=== PATIENT | male | born 1990 | race Caucasian/White ===

== ENCOUNTER 2022-10-17 09:42 | Inpatient (IN) | payer OTHER, SELFPAY ==
--- NOTE | ~2022-10-17 | US_ITS ---
EXAMINATION: ULTRASOUND ABDOMEN COMPLETE. ABDOMINAL DOPPLER AND COLOR ULTRASOUND. CLINICAL INFORMATION: Splenomegaly. Evaluate for splenic thrombosis. COMPARISON: None TECHNIQUE: Routine grayscale imaging of the abdomen was obtained. In addition Doppler imaging of abdomen with attention to portal, hepatic and splenic veins is performed. FINDINGS: ABDOMEN ULTRASOUND: Pancreas: The pancreas is homogeneous echotexture without enlargement. The tail of the pancreas is obscured by overlying gas. The pancreatic duct measures 0.2 cm. Liver, gallbladder and ducts: The liver is enlarged with diffuse increased echogenicity. No focal lesion seen. There is no intrahepatic or extrahepatic ductal dilatation. The left hepatic lobe measures 16.0 cm in length and right hepatic lobe measures 19.60 minutes CBD: CBD measures 0.5 cm. Gallbladder: There is no echogenic stones stones,, polyp or wall thickening. No pericholecystic fluid collection or tenderness in right upper quadrant. Right kidney: The right kidney measures 10.8 cm in length. There is normal cortical thickness. No echogenic stones or hydronephrosis seen. Left kidney: The left kidney measures 11.4 cm in length. There is normal cortical thickness without echogenic stones, hydronephrosis. No perinephric fluid collection seen. Spleen is borderline enlarged measuring 13.7 cm. There is a homogeneous in echotexture. There is no free fluid in the cul-de-sac. ULTRASOUND DOPPLER: The portal vein is patent with normal hepatopedal flow seen in the main, right and left portal veins. The splenic vein is patent without any thrombosis. The hepatic veins are patent especially the right, left and main hepatic veins are patent. US/US duplex arterial venous comp IMPRESSION: Mildly increased hepatic echogenicity without any focal lesion. Borderline splenomegaly.
--- NOTE | ~2022-10-17 | US_ITS ---
EXAMINATION: ULTRASOUND ABDOMEN COMPLETE. ABDOMINAL DOPPLER AND COLOR ULTRASOUND. CLINICAL INFORMATION: Splenomegaly. Evaluate for splenic thrombosis. COMPARISON: None TECHNIQUE: Routine grayscale imaging of the abdomen was obtained. In addition Doppler imaging of abdomen with attention to portal, hepatic and splenic veins is performed. FINDINGS: ABDOMEN ULTRASOUND: Pancreas: The pancreas is homogeneous echotexture without enlargement. The tail of the pancreas is obscured by overlying gas. The pancreatic duct measures 0.2 cm. Liver, gallbladder and ducts: The liver is enlarged with diffuse increased echogenicity. No focal lesion seen. There is no intrahepatic or extrahepatic ductal dilatation. The left hepatic lobe measures 16.0 cm in length and right hepatic lobe measures 19.60 minutes CBD: CBD measures 0.5 cm. Gallbladder: There is no echogenic stones stones,, polyp or wall thickening. No pericholecystic fluid collection or tenderness in right upper quadrant. Right kidney: The right kidney measures 10.8 cm in length. There is normal cortical thickness. No echogenic stones or hydronephrosis seen. Left kidney: The left kidney measures 11.4 cm in length. There is normal cortical thickness without echogenic stones, hydronephrosis. No perinephric fluid collection seen. Spleen is borderline enlarged measuring 13.7 cm. There is a homogeneous in echotexture. There is no free fluid in the cul-de-sac. ULTRASOUND DOPPLER: The portal vein is patent with normal hepatopedal flow seen in the main, right and left portal veins. The splenic vein is patent without any thrombosis. The hepatic veins are patent especially the right, left and main hepatic veins are patent. US/US abdomen complete IMPRESSION: Mildly increased hepatic echogenicity without any focal lesion. Borderline splenomegaly.
--- NOTE | ~2022-10-17 | CT_ITS ---
EXAMINATION: CT chest wo IV con. CLINICAL INFORMATION: Reason for Exam re-eval emphyema COMPARISON: Prior CT 10/24/2022 TECHNIQUE: Multidetector volumetric CT imaging of the chest was done. Axial MIP volume rendering provided. Sagittal and coronal reformatted images were obtained. This CT examination was performed using dose optimization techniques as appropriate, variously including the following: *Automated exposure control *Adjustment of mA and/or kV according to patient size (this includes techniques or standardized protocols for targeted exams where dose is matched to indication/reason for exam; i.e. extremities or head) *Use of iterative reconstruction technique CONTRAST: Noncontrasted study. DLP: 247 mGy-cm FINDINGS: [place] MAN: LINES/TUBES: Drainage catheter in the right lung base has been removed. LUNGS: Redemonstration of cavitary mass/abscess right lower lobe, air-fluid level, remain stable not significantly changed from 10/24/2022. Adjacent infiltrates/partial subsegmental atelectasis is stable. Pleural-based dense opacification right lower lobe laterally 3.5 cm, pleural-based dense consolidation right lower lobe medially 2.6 cm both remain without cavitation, there are stable. Left lung and right upper lobes are clear AIRWAYS: Trachea and bronchi are normal. MEDIASTINUM AND IZZY: No mediastinal, hilar or axillary lymphadenopathy. No mediastinal mass. VESSELS: HEART AND PERICARDIUM: Thoracic aorta is normal in size. Heart is normal in size. No pericardial effusion. There are no coronary calcifications. Pulmonary arteries are normal in size. LOWER NECK, AXILLA: The visualized thyroid gland is unremarkable. No axillary mass or adenopathy. VISUALIZED ABDOMEN: Spleen is enlarged 16.4 cm unchanged. CHEST WALL AND BONES: No chest wall mass. The visualized bony thorax is within normal limits. CT/CT chest wo IV con IMPRESSION: * Redemonstration of cavitary mass/abscess right lower lobe with air-fluid level, adjacent subsegmental atelectasis/infiltrate is stable. * Redemonstration of 2 other right lower lobe pleural-based noncavitary Pleural-based dense 4.2 and 2.5 cm consolidation right lower lobe laterally and medially both unchanged. * No lymphadenopathy. * Splenomegaly. * Drainage catheter has been removed.
--- NOTE | ~2022-10-17 | XR_ITS ---
EXAMINATION: XR CHEST CLINICAL INFORMATION: Cough, right hip pain. COMPARISON: None TECHNIQUE: 2 views of the chest were obtained. FINDINGS: There is an air-fluid level with haziness in right lower lobe posterior segment suggestive of a large liquefied consolidation or an abscess. Rest lungs are expanded and clear. Heart size and progress clarities normal. There is mild blunting of right CP angle from pleural thickening or effusion. No gross bony abnormality. XR/XR chest 2V IMPRESSION: Large right lower lobe posterior segment and fluid level suggestive of liquefied consolidation or abscess. Recommend CT chest with contrast.
--- NOTE | ~2022-10-17 | CT_ITS ---
EXAMINATION: CT CHEST WITHOUT CONTRAST CLINICAL INFORMATION: Lung abscess, status post drainage placement, follow-up. COMPARISON: Chest CT scan dated 10/17/2022. TECHNIQUE: Multidetector volumetric CT imaging of the chest was done. Axial MIP volume rendering provided. Sagittal and coronal reformatted images were obtained. This CT examination was performed using dose optimization techniques as appropriate, variously including the following: *Automated exposure control *Adjustment of mA and/or kV according to patient size (this includes techniques or standardized protocols for targeted exams where dose is matched to indication/reason for exam; i.e. extremities or head) *Use of iterative reconstruction technique DLP: 231 mGy-cm FINDINGS: LUNGS/PLEURA/AIRWAYS: Interval placement of right pigtail catheter in right lower lobe abscess still containing air and complex fluid. The collection has mildly decreased in size measuring approximately 9.9 TRV x 7.2 AP x 8.2 CC cm (previously 11.7 x 11.3 x 13.4 cm). A separate subpleural collection anterolateral to the larger collection measures 5.0 x 2.2 x 3.4 cm (image 42, series 3; image 60, series 8). The lungs are otherwise clear. Trace left pleural effusion. The airways are patent. MEDIASTINUM: The visualized thyroid gland is unremarkable. The thoracic aorta is unremarkable. No coronary artery calcifications. No pericardial effusion. UPPER ABDOMEN: Splenomegaly measuring up to 18.3 cm in AP dimension (image 60, series 3). MUSCULOSKELETAL: Unremarkable. SOFT TISSUES: Unremarkable. CT/CT chest wo IV con IMPRESSION: 1. Significant interval decrease in size of right lower lobe abscess as detailed above status post drainage catheter placement. 2. Splenomegaly represents interval increase from the previous study.
--- NOTE | ~2022-10-17 | CT_ITS ---
EXAMINATION: CT CHEST WITHOUT CONTRAST CLINICAL INFORMATION: Reevaluate right empyema. COMPARISON: Previous chest CT most recent 10/30/2021. TECHNIQUE: Multidetector volumetric CT imaging of the chest was done. Axial MIP volume rendering provided. Sagittal and coronal reformatted images were obtained. This CT examination was performed using dose optimization techniques as appropriate, variously including the following: *Automated exposure control *Adjustment of mA and/or kV according to patient size (this includes techniques or standardized protocols for targeted exams where dose is matched to indication/reason for exam; i.e. extremities or head) *Use of iterative reconstruction technique DLP: 144 mGy-cm FINDINGS: LUNGS: There is bronchial wall thickening of the right lower lobe. There is a large peripheral or subpleural thick-walled cavitary lesion seen in the right lower lobe which abuts the right pleural surface. It is difficult to completely exclude small right hydropneumothorax or a bronchopleural fistula. This is slightly decreased in size from October 2022. This measures approximately 3.5 x 5 cm in AP and transverse dimensions. There are adjacent air bronchograms. There are adjacent nodular peripheral or subpleural right lower lobe lesions laterally measuring 1.3 cm, slightly decreased in size from previous exam and medially measuring 2 cm not appreciably changed in size from prior exam. MEDIASTINUM: Shotty mediastinal lymphadenopathy similar to previous exam. CORONARY ARTERY CALCIFICATION: None visualized on this study. PLEURA: There is a small right pleural effusion and pleural thickening. Air space or cavity in the adjacent posterior right lower lobe as described above. There is no left pleural effusion. There is no pneumothorax. AXILLA: No lymphadenopathy. UPPER ABDOMEN: The spleen is enlarged. OSSEOUS STRUCTURES: Unremarkable. CT/CT chest wo IV con IMPRESSION: Small right pleural effusion and pleural thickening. Interval decrease in size and cavitary right lower lobe lung lesion. This abuts the pleural surface and possibility of bronchopleural fistula or small hydropneumothorax cannot be excluded. Interval decrease in peripheral or subpleural nodular opacity in the right lower lobe, adjacent pleural thickening and stable similar-appearing posterior medial right lower lobe peripheral or subpleural opacity. Fleischner guidelines were followed.
--- NOTE | ~2022-10-17 | XR_ITS ---
EXAMINATION: XR chest 1V CLINICAL INFORMATION: Reason for Exam Right lung abscess with drainage catheter COMPARISON: Chest radiograph 10/20/2022 TECHNIQUE: One view of the chest FINDINGS: Right basilar pigtail pleural drainage catheter. There is patchy right basilar consolidation which appears slightly improved from prior with no definite residual air-fluid levels seen within the region of consolidation. Possible trace right pleural effusion similar to prior. No pneumothorax. Normal cardiomediastinal silhouette. XR/XR chest 1V IMPRESSION: * Right basilar pigtail pleural drainage catheter. There is patchy right basilar consolidation which appears slightly improved from prior with no definite residual air-fluid levels seen within the region of consolidation. * Possible trace right pleural effusion similar to prior.
--- NOTE | ~2022-10-17 | XR_ITS ---
EXAMINATION: XR CHEST CLINICAL INFORMATION: Assess loculated right pleural effusion COMPARISON: Chest radiograph 10/22/[address] thorax 10/24/2022 TECHNIQUE: Frontal view of the chest was obtained. FINDINGS: Right pigtail catheter extends to the medial lung base without change. The right inferolateral pleural based opacity and the posterior right lower lung pleural based opacity are similar in size and appearance compared to prior. A small locule of pleural air is seen in the more posterior opacity measuring 1.7 x 2.9 cm in size. The right upper lung and left lung are clear. The heart and mediastinum are normal in appearance. No acute osseous findings. XR/XR chest 1V IMPRESSION: 1. Similar appearance to the pleural-based opacities at the right lung base. 2. Stable position to the right pigtail pleural drain.
--- NOTE | ~2022-10-17 | CT_ITS ---
EXAMINATION: CT CHEST WITH CONTRAST CLINICAL INFORMATION: Question of lung abscess on chest radiograph COMPARISON: Chest radiograph earlier today TECHNIQUE: Multidetector volumetric CT imaging of the chest was obtained after the administration of 65 mL of Omnipaque 350 intravenous contrast without immediate adverse reactions. Axial MIP volume rendering provided. Sagittal and coronal reformatted images were obtained. This CT examination was performed using dose optimization techniques as appropriate, variously including the following: *Automated exposure control *Adjustment of mA and/or kV according to patient size (this includes techniques or standardized protocols for targeted exams where dose is matched to indication/reason for exam; i.e. extremities or head) *Use of iterative reconstruction technique DLP: 220 mGy-cm FINDINGS: LUNGS AND PLEURA: At the right lung base in the right lower lobe, there is a large complex collection with fluid and air measuring 14.2 x 9.9 10.0 cm consistent with a large lung abscess. There are 2 adjacent loculated pleural collections measuring 1.7 x 3.6 x 3.1 cm just lateral to the abscess (4:315, 6:88) as well as a collection medially abutting the mediastinum measuring 6.5 x 1.6 x 4.1 cm (4:356, 5:55). There is a small amount of loculated fluid present in the major fissure. Incidental note made of a tiny 2 mm nodule in the inferior right upper lobe adjacent to the minor fissure (4:220). Left lung appears normal. MEDIASTINUM: The mediastinum is normal. PLEURA: There is no pleural effusion. No pleural mass or thickening. AXILLA: No lymphadenopathy. UPPER ABDOMEN: The spleen is enlarged measuring at least 17 cm in greatest length. Hepatomegaly may be present as well the entire liver is not included on this chest CT. OSSEOUS STRUCTURES: Unremarkable. CT/CT chest w IV con IMPRESSION: 1. Large right lower lobe lung abscess with 2 adjacent loculated pleural collections as described above. 2. Incidental note made of splenomegaly and possible hepatomegaly. Fleischner guidelines were followed.
--- NOTE | ~2022-10-17 | CT_ITS ---
EXAMINATION: CT GUIDED RIGHT LOWER LOBE ABSCESS DRAINAGE AND CATHETER PLACEMENT CLINICAL INFORMATION: Right lower lobe abscess. COMPARISON: None TECHNIQUE: Following explaining CT guided drainage and placement of right lower lobe abscess procedure, benefits and risk, a written consent was obtained. Patient was placed in the left semi decubitus view and preliminary CT imaging was obtained. An optimal site was selected and marked. The marked site was cleaned and draped in usual sterile manner. 1% lidocaine was injected at puncture site. Through a small skin incision a 5 [place] Yueh catheter was advanced into the right lower lobe abscess under fluoroscopy guidance. After observing possible return and removal of stylet a 0.035 J-wire was advanced and the catheter was removed. A 10.2 [place] APD catheter was then placed into the abscess and the guidewire removed. The catheter was stabilized to the skin with 3 0 nonabsorbable sutures. The catheter was then connected to suction bulb. Initially, simple aspiration was performed with syringe and wall suction. The abscess was flushed with about 20 mL of saline and aspirated. Approximately 50 mL of pus was withdrawn. Some of this was sent to lab. Patient tolerated procedure extremely well. Conscious sedation was utilized during the exam and patient monitored for [address] examination was performed using dose optimization techniques as appropriate, variously including the following: *Automated exposure control *Adjustment of mA and/or kV according to patient size (this includes techniques or standardized protocols for targeted exams where dose is matched to indication/reason for exam; i.e. extremities or head) *Use of iterative reconstruction technique DLP: 391 mGy-cm FINDINGS: On preliminary CT imaging there is a large abscess right lower lobe. Initial pus collected was sent to lab for culture and sensitivity and TV evaluation. A 10.2 [place] APD catheter was left in the right lower lobe abscess. The abscess is very thick and may need a larger bore catheter or surgical drainage. CT/CT drain thoracentesis IMPRESSION: Successful CT fluoroscopy-guided partial drainage and insertion of 10.2 [place] APD catheter. The tip of the catheter lies within the abscess.
--- NOTE | ~2022-10-17 | XR_ITS ---
EXAMINATION: XR CHEST CLINICAL INFORMATION: Right lower lobe abscess. COMPARISON: Chest 10/17/2022 TECHNIQUE: 2 views of the chest were obtained. FINDINGS: Previously seen air-fluid level right lower lobe shows mild improvement. There is percutaneously placed right lower lobe chest catheter within the abscess. Of the margins of the ILL-defined however the size grossly is minimally smaller. No gross bony pneumonitis seen Heart size and pulmonary vascularity is normal. XR/XR chest 2V IMPRESSION: Mild improvement in the right lower lobe air-fluid level consistent with abscess. There is a percutaneously placed right lower lobe chest catheter within the abscess. Recommend flushing catheter with 20 mL of saline every 8 hours.
[2022-10-17 09:45] VITALS: BP 119/76; PULSE 106; RESP 20; TEMP 37.4; O2SAT 98; BMI 20.9
--- NOTE | 2022-10-17 09:54 | ED.GENADULT ---
HPI - General Adult General Chief complaint: General Medical <JOSE Goode - Last Filed: 10/17/22 15:35> Stated complaint: R flank pain <JOSE Goode Last Filed: 10/17/22 15:35> Time Seen by Provider: 10/17/22 09:54 <JOSE Goode Last Filed: 10/17/22 15:35> Source: patient <JOSE Goode Last Filed: 10/17/22 15:35> Mode of arrival: ambulatory <JOSE Goode Last Filed: 10/17/22 15:35> Limitations: no limitations <JOSE Goode Last Filed: 10/17/22 15:35> History of Present Illness HPI narrative: Patient is a 32 year old assigned male at with a history of IV drug use and smoking presenting to the emergency department today with right sided flank / rib pain. Patient states that over the last 2 weeks he has had right flank pain that is worse with deep breathing. Patient states that he has also had intermittent fevers and a cough. Patient states that he does not know any of any history of HIV but he does use IV drugs. Patient denies any dizziness, lightheadedness, abdominal pain, nausea, vomiting, blurry vision, double vision, loss of vision, chest pain, night sweats, pain with urination, increased urinary frequency, increased urinary urgency, blood in [his/her/their] urine or stool, syncope or a near syncopal episode, recent trauma or falls, bowel incontinence, bladder incontinence, bowel retention, bladder retention, or any other complaints at this time. <JOSE Goode Last Filed: 10/17/22 15:35> Onset (ago): week(s) (2) <JOSE Goode - Last Filed: 10/17/22 15:35> Location: right (flank) <JOSE Goode Last Filed: 10/17/22 15:35> Severity: mild <JOSE Goode Last Filed: 10/17/22 15:35> Severity scale (1-10): 4 <JOSE Goode Last Filed: 10/17/22 15:35> Relieving factors: none <JOSE Goode Last Filed: 10/17/22 15:35> Exacerbating factors: none <JOSE Goode - Last Filed: 10/17/22 15:35> Associated symptoms: fever/chills <JOSE Goode - Last Filed: 10/17/22 15:35> Treatments prior to arrival: none <JOSE Goode Last Filed: 10/17/22 15:35> Related Data Home medications: Home Medications Medication Instructions Recorded Confirmed albuterol sulfate 90 mcg/actuation 1 inh inhalation QID PRN Wheezing 10/17/22 10/17/22 aerosol inhaler methadone 10 mg/5 mL oral solution 125 mg PO DAILY 10/17/22 10/17/22 <JOSE Goode - Last Filed: 10/17/22 15:35> Allergies/adverse reactions: Allergies Allergy/AdvReac Type Severity Reaction Status Date / Time codeine Allergy Hives Verified 10/17/22 09:45 <JOSE Goode - Last Filed: 10/17/22 15:35> Review of Systems Constitutional: Constitutional: Reports no additional constitutional complaints, Denies chills, Reports fever(s) and Denies night sweats <JOSE Goode - Last Filed: 10/17/22 15:35> Eyes: Eyes: Reports no additional eye complaints, Denies blurry vision, Denies change in vision, Denies diplopia, Denies eye discharge, Denies loss of vision and Denies eye pain <JOSE Goode - Last Filed: 10/17/22 15:35> ENT: Denies dizziness <JOSE Goode - Last Filed: 10/17/22 15:35> Cardiovascular: Cardiovascular: Reports no additional cardiovascular complaints, Denies chest pain, Denies lightheadedness, Denies Loss of Consciousness and Denies dyspnea <JOSE Goode - Last Filed: 10/17/22 15:35> Respiratory: Respiratory: Reports no additional respiratory complaints and Denies dyspnea <JOSE Goode - Last Filed: 10/17/22 15:35> Gastrointestinal: Gastrointestinal: Reports no additional gastrointestinal complaints, Denies abdominal pain, Denies melena, Denies hematochezia, Denies change in bowel habits and Denies change in stool character <JOSE Goode - Last Filed: 10/17/22 15:35> Genitourinary: Genitourinary: Reports no additional male genitourinary complaints, Denies hematuria, Denies oliguria, Denies difficulty urinating, Denies dysuria, Reports flank pain (right), Denies urinary frequency, Denies urinary hesitancy, Denies urinary incontinence and Denies urinary urgency <JOSE Goode - Last Filed: 10/17/22 15:35> Musculoskeletal: Musculoskeletal: Reports no additional musculoskeletal complaints, Denies numbness and Denies tingling <JOSE Goode - Last Filed: 10/17/22 15:35> Neurologic: Denies dizziness, Denies loss of vision, Denies numbness and Denies tingling <JOSE Goode - Last Filed: 10/17/22 15:35> Psychiatric: Psychiatric: Reports no additional psychiatric complaints <JOSE Goode - Last Filed: 10/17/22 15:35> Endocrine: Endocrine: Reports no additional endocrine complaints <JOSE Goode - Last Filed: 10/17/22 15:35> Hematologic/Lymphatic: Hematologic/Lymphatic: Reports no additional hematologic/lymphatic complaints <JOSE Goode - Last Filed: 10/17/22 15:35> Allergic/Immunologic: Allergic/Immunologic: Reports no additional allergic/immunologic complaints <JOSE Goode - Last Filed: 10/17/22 15:35> PMFSH Past Medical History Attestation statement: The following information was validated with the patient. <JOSE Goode - Last Filed: 10/17/22 15:35> Source: old records reviewed and nursing notes reviewed <JOSE Goode - Last Filed: 10/17/22 15:35> Medical History: Medical History (Updated 10/17/22 @ 15:11 by JOSE Goode) Agoraphobia Anxiety Asthma Hepatitis C antibody test positive History of intravenous drug abuse Opioid use disorder <JOSE Goode - Last Filed: 10/17/22 15:35> Family History Family History: Family History (Updated 10/17/22 @ 14:49 by JOSE Adorno) Father Lung cancer <JOSE Goode - Last Filed: 10/17/22 15:35> Social History Social History: Social History (Updated 10/17/22 @ 14:49 by JOSE Adorno) Alcohol intake: never Patient Tobacco Use Status: Current everyday Tobacco user Tobacco use type: Cigarette Cigarette Packs Per Day: 0.25 Smoked in Last 30 Days: Yes Use of substances other than those prescribed or required for medical reasons: Yes Substance Use Type: Marijuana Substance Use Frequency: Occasionally Any prior treatment program specific to substance use: Yes Advance Directives: No Advance Directives Information Provided: Yes Nutrition Risks: No Nutritional Risk <JOSE Goode - Last Filed: 10/17/22 15:35> Physical Exam ED Vital Signs: Vital Signs - 24 hr 10/17/22 09:45 10/17/22 14:29 Temperature 99.4 F Pulse Rate 106 H 73 Respiratory Rate 20 Blood Pressure 119/76 Pulse Oximetry 98 Oxygen Delivery Method Room Air BMI result Body Mass Index 20.9 <JOSE Goode - Last Filed: 10/17/22 15:35> Vital Signs - 24 hr 10/17/22 09:45 10/17/22 14:29 Temperature 99.4 F Pulse Rate 106 H 73 Respiratory Rate 20 Blood Pressure 119/76 Pulse Oximetry 98 Oxygen Delivery Method Room Air BMI result Body Mass Index 20.9 <Anibal Cantrell MD - Last Filed: 10/17/22 14:21> Const General: cooperative, no acute distress, alert and awake <JOSE Goode - Last Filed: 10/17/22 15:35> Nutritional Appearance: well nourished <JOSE Goode - Last Filed: 10/17/22 15:35> Orientation/consciousness: patient oriented x3 <JOSE Goode - Last Filed: 10/17/22 15:35> Limitations: no limitations <JOSE Goode - Last Filed: 10/17/22 15:35> HENMT Head: Yes normal to inspection and Yes atraumatic <JOSE Goode - Last Filed: 10/17/22 15:35> Ears: hearing grossly normal bilaterally and external ears normal <JOSE Goode - Last Filed: 10/17/22 15:35> General nose exam: Normal external nose present, no nasal discharge noted and no epistaxis <Nancy Noel [place] - Last Filed: 10/17/22 15:35> Face and sinus: Yes normal facial exam, No abrasion and No laceration <Nancy Noel [place] - Last Filed: 10/17/22 15:35> Mouth: Normal oral and palatal mucosa present, no drooling and no muffled voice <Nancy Noel [place] - Last Filed: 10/17/22 15:35> Eyes General: appearance normal, both eyes and all related structures <Nancy Noel [place] - Last Filed: 10/17/22 15:35> Periorbital: periorbital findings normal <Nancy Noel [place] - Last Filed: 10/17/22 15:35> Eyelids: Yes eyelids normal <Nancy Noel [place] - Last Filed: 10/17/22 15:35> Conjunctivae: conjunctivae normal <Nancy Noel [place] - Last Filed: 10/17/22 15:35> Pupils: Equal, round and reactive pupils present <Nancy Noel [place] - Last Filed: 10/17/22 15:35> EOM: EOMs intact bilaterally <Nancy Noel [place] - Last Filed: 10/17/22 15:35> Neck Neck: Yes normal visual inspection, Yes full ROM and Yes no lymphadenopathy <Nancy Noel [place] - Last Filed: 10/17/22 15:35> Chest Chest palpation & inspection: normal inspection of the chest <Nancy Noel [place] - Last Filed: 10/17/22 15:35> Resp Effort & Inspection: normal respiratory effort and able to speak in complete sentences <Nancy Noel [place] - Last Filed: 10/17/22 15:35> Auscultation: clear to auscultation bilaterally <Nancy Noel [place] - Last Filed: 10/17/22 15:35> Cardio Rate: tachycardic <Nancy Noel [place] - Last Filed: 10/17/22 15:35> Rhythm: regular rhythm <Nancy Noel [place] - Last Filed: 10/17/22 15:35> GI Inspection: Yes normal to inspection <Nancy Noel [place] - Last Filed: 10/17/22 15:35> Palpation (GI): Soft to palpation, not firm, nontender, no guarding and not rigid <Nancyankur CabreraJOSE presley - Last Filed: 10/17/22 15:35> Neuro General: patient oriented x3 and moves all extremities <Nancy CabreraJOSE presley - Last Filed: 10/17/22 15:35> Cranial nerves: Yes Equal, round and reactive pupils present <Nancy NoelJOSE presley - Last Filed: 10/17/22 15:35> Cognition (Neuro): normal cognition <JOSE Goode - Last Filed: 10/17/22 15:35> Motor exam (neuro): 5/5 motor strength present throughout <JOSE Goode - Last Filed: 10/17/22 15:35> Sensory Exam: Normal double simultaneous stimulation for sensation <JOSE Goode - Last Filed: 10/17/22 15:35> Coordination: [id number] test normal <JOSE Goode - Last Filed: 10/17/22 15:35> Extrem General: Yes normal to inspection, Yes full ROM and Yes capillary refill normal <Nancy Noel, PA - Last Filed: 10/17/22 15:35> Psych Appearance: grossly normal <JOSE Goode - Last Filed: 10/17/22 15:35> Mental Status: mental status grossly normal <JOSE Goode - Last Filed: 10/17/22 15:35> Affect: normal affect <JOSE Goode - Last Filed: 10/17/22 15:35> Attitude: cooperative <JOSE Goode - Last Filed: 10/17/22 15:35> Thought process: Normal thought process present <JOSE Goode - Last Filed: 10/17/22 15:35> Thought content: Normal thought content present <JOSE Goode - Last Filed: 10/17/22 15:35> Insight: Good insight present (Psych) <JOSE Goode - Last Filed: 10/17/22 15:35> Course Reevaluation(s) Reevaluation #1: Patinet with large thoracic abscess, discussed plan with Bert CARVER <Anibal Cantrell MD - Last Filed: 10/17/22 14:21> Time: 10:33 <Anibal Cantrell MD - Last Filed: 10/17/22 14:21> Medications Administered Discontinued Medications Generic Name Dose Route Start Last Admin Trade Name Freq PRN Reason Stop Dose Admin Piperacillin Sod/Tazobactam 50 mls @ 100 mls/hr 10/17/22 10:33 10/17/22 11:38 Sod 3.375 gm/ Sodium Chloride IV 10/17/22 11:02 Infused ONCE ONE Infusion Vancomycin HCl 1,500 mg/ 500 mls @ 333.333 mls/hr 10/17/22 11:00 10/17/22 13:05 Sodium Chloride IV 10/17/22 12:29 Infused ONCE ONE Infusion Sodium Chloride 2,041.17 mls @ 2,041.17 mls/hr 10/17/22 12:12 10/17/22 13:18 Ns 30 ml/kg infuse over 1 hr (2041.17 ml) 10/17/22 13:11 Infused IV Infusion .Q1H STA Ibuprofen 800 mg 10/17/22 09:55 10/17/22 10:27 Ibuprofen 800 Mg Tablet PO 10/17/22 09:56 800 mg ONCE ONE Administration Iohexol 65 ml 10/17/22 12:26 10/17/22 12:27 Iohexol 350 Mg/Ml 100 Ml Infus..Btl IV 10/17/22 12:27 65 ml ONCE ONE Administration Lorazepam 2 mg 10/17/22 10:45 10/17/22 11:00 Lorazepam 2 Mg/Ml Vial IVPUSH 10/17/22 10:46 2 mg ONCE ONE Administration <JOSE Goode - Last Filed: 10/17/22 15:35> Medications Administered Discontinued Medications Generic Name Dose Route Start Last Admin Trade Name Freq PRN Reason Stop Dose Admin Piperacillin Sod/Tazobactam 50 mls @ 100 mls/hr 10/17/22 10:33 10/17/22 11:38 Sod 3.375 gm/ Sodium Chloride IV 10/17/22 11:02 Infused ONCE ONE Infusion Vancomycin HCl 1,500 mg/ 500 mls @ 333.333 mls/hr 10/17/22 11:00 10/17/22 13:05 Sodium Chloride IV 10/17/22 12:29 Infused ONCE ONE Infusion Sodium Chloride 2,041.17 mls @ 2,041.17 mls/hr 10/17/22 12:12 10/17/22 13:18 Ns 30 ml/kg infuse over 1 hr (2041.17 ml) 10/17/22 13:11 Infused IV Infusion .Q1H STA Ibuprofen 800 mg 10/17/22 09:55 10/17/22 10:27 Ibuprofen 800 Mg Tablet PO 10/17/22 09:56 800 mg ONCE ONE Administration Iohexol 65 ml 10/17/22 12:26 10/17/22 12:27 Iohexol 350 Mg/Ml 100 Ml Infus..Btl IV 10/17/22 12:27 65 ml ONCE ONE Administration Lorazepam 2 mg 10/17/22 10:45 10/17/22 11:00 Lorazepam 2 Mg/Ml Vial IVPUSH 10/17/22 10:46 2 mg ONCE ONE Administration <Anibal Cantrell MD - Last Filed: 10/17/22 14:21> Medical Decision Making Medical Decision Making MDM Narrative: Patient is a 32 year old assigned male at with a history of IV drug use currently on methadone and a cigarette smoker presenting to the emergency department today with right sided flank pain and a cough. Patient's physical exam showed initial tachycardia which was largely due to the patient's anxiousness surrounding his being at the hospital and improved with 2mg of Ativan. Patient's blood work showed an elevated WBC count of 16.4, a decreased hgb of 9.3, an elevated ESR of 98, a decreased sodium of 134, an elevated lactic acid of 2.1, and an elevated CRP of 19.93. Additionally, patient was positive for Hepatitis C. Patient's urine showed no acute process. Patient's chest x-ray showed a large right lower lobe posterior segment and fluid level suggestive of liquefied consolidation or abscess. Patient's chest CT with IV contrast showed a large right lower lobe lung abscess with 2 adjacent loculated pleural collections. I spoke to the oarcic team who recommended medical admission with IR, pulmonary, and ID consultation. Patient was given IV fluids, IV Vanc + Zosyn. Patient's clinical presentation is not consistent with sepsis (@1041). I spoke to the hospitalist team who agreed to admission. I explained my physical exam findings as well as all test results to the patient. I answered all questions asked by the patient. Patient verbalized agreement and understanding with this treatment plan and admission. <JOSE Goode - Last Filed: 10/17/22 15:35> Differential Diagnosis Differential Diagnoses: The differential diagnosis associated with the presentation includes <JOSE Goode - Last Filed: 10/17/22 15:35> thoracic abscess, fluid collection in throacic cavity <JOSE Goode - Last Filed: 10/17/22 15:35> Consult Healthcare Provider Management of the patient was discussed with: Hospitalist (agreed to admission) and [employer] (spoke to throacic surgery who recommended medical admission with ID, pulm, and IR consults.) <JOSE Goode - Last Filed: 10/17/22 15:35> Discussed care with dr. chew hospitalist and Dr. Ramos invasive radiology <Anibal Cantrell MD - Last Filed: 10/17/22 14:21> Lab Data MDM Lab Attestation statement: I reviewed the patient's lab results. <JOSE Goode - Last Filed: 10/17/22 15:35> Result Diagrams: 10/17/22 10:41 10/17/22 10:41 <JOSE Goode - Last Filed: 10/17/22 15:35> Labs: Lab Results 10/17/22 10/17/22 10/17/22 Range/Units 10:09 10:09 10:09 WBC (4.8-10.8) X10*3/uL RBC (4.60-5.80) X10*6/uL Hgb (14.0-18.0) g/dl Hct (42.0-52.0) % MCV (80.0-98.0) fL MCH (27.0-33.0) pg MCHC (31.0-36.0) g/dl RDW (11.0-16.0) % Plt Count (160-400) X10*3/uL MPV (9.4-12.4) fL Immature Gran % (Auto) (0.0-0.4) % Neut % (Auto) (45-73) % Lymph % (Auto) (20-40) % [place] % (Auto) (2-11) % Eos % (Auto) (0-4) % Baso % (Auto) (0-2) % Lymph # (Auto) (1.2-4.9) X10*3/uL [place] # (Auto) (0.1-1.2) X10*3/uL Eos # (Auto) (0.0-0.4) X10*3/uL Baso # (Auto) (0.0-0.2) X10*3/uL Abs Immat Gran (auto) (0.00-0.03) X10*3/uL Absolute Neuts (auto) (2.0-8.3) x10*3/uL Absolute Nucleated RBC (0.0-0.012) X10*3/uL Nucleated RBC % (auto) (0.0-0.2) /100WBC ESR (0-15) MM/HR Sodium (135-145) mmol/L Potassium (3.3-5.1) mmol/L Chloride (96-108) mmol/L Carbon Dioxide (22-29) mmol/L Anion Gap (12-20) BUN (9-16) mg/dL Creatinine (0.5-1.4) mg/dL Estim Creat Clear Calc Estimated GFR Random Glucose (60-115) mg/dL Lactic Acid (0.5-2.0) mmol/L Calcium (8.4-10.2) mg/dL Magnesium (1.6-2.6) mg/dL Total Bilirubin (0.0-1.0) mg/dL AST (5-37) U/L ALT (0-40) U/L Alkaline Phosphatase (39-117) U/L C-Reactive Protein (< or = 0.50) mg/dL Total Protein (6.5-8.0) g/dL Albumin (3.5-5.0) g/dL Urine Color Dark Yellow Urine Appearance Cloudy Urine pH 5.5 (5.0-9.0) Ur Specific [place] 1.025 (1.005-1.025) Urine Protein Trace (Neg-Trace) mg/dL Urine Glucose (UA) Negative (Negative) mg/dL Urine Ketones Trace (Negative) mg/dL Urine Blood Negative (Negative) Urine Nitrite Negative (Negative) Ur Leukocyte Esterase Trace H (Negative) Urine RBC 0-2 (0-2) /HPF Urine WBC 0-5 (0-5) /HPF Ur Squamous Epith Cells 0-2 (0-2) /HPF Urine Bacteria None Seen (None Seen) Hyaline Casts 0-2 (0-2) /LPF Urine Opiates Screen POSITIVE H (Not Detect) Urine Fentanyl Screen POSITIVE H (Not Detect) Ur Barbiturates Screen Not Detected (Not Detect) Ur Phencyclidine Scrn Not Detected (Not Detect) Ur Amphetamines Screen Not Detected (Not Detect) U Benzodiazepines Scrn Not Detected (Not Detect) Urine Cocaine Screen POSITIVE H (Not Detect) U Marijuana (THC) Screen Not Detected (Not Detect) Hep Bs Antigen (Negative) Hep Bs Antibody (Nonreactive) Hep B Core Total Ab (Nonreactive) Hepatitis C Ab (EIA) (Nonreactive) HIV 1&2 Ab/P24 Ag 4thGn (Nonreactive) Influenza Type A (PCR) NEGATIVE (Negative) Influenza Type B (PCR) NEGATIVE (Negative) RSV RNA Qual (PCR) NEGATIVE (Negative) SARS-CoV-2 RNA (RT-PCR) NEGATIVE (Negative) 10/17/22 10/17/22 10/17/22 Range/Units 10:41 10:41 10:41 WBC 16.4 H (4.8-10.8) X10*3/uL RBC 3.52 L (4.60-5.80) X10*6/uL Hgb 9.3 L (14.0-18.0) g/dl Hct 28.2 L (42.0-52.0) % MCV 80.1 (80.0-98.0) fL MCH 26.4 L (27.0-33.0) pg MCHC 33.0 (31.0-36.0) g/dl RDW 14.4 (11.0-16.0) % Plt Count 496 H (160-400) X10*3/uL MPV 8.5 L (9.4-12.4) fL Immature Gran % (Auto) 1.0 H (0.0-0.4) % Neut % (Auto) 88.8 H (45-73) % Lymph % (Auto) 6.1 L (20-40) % [place] % (Auto) 3.8 (2-11) % Eos % (Auto) 0.1 (0-4) % Baso % (Auto) 0.2 (0-2) % Lymph # (Auto) 1.0 L (1.2-4.9) X10*3/uL [place] # (Auto) 0.6 (0.1-1.2) X10*3/uL Eos # (Auto) 0.0 (0.0-0.4) X10*3/uL Baso # (Auto) 0.0 (0.0-0.2) X10*3/uL Abs Immat Gran (auto) 0.16 H (0.00-0.03) X10*3/uL Absolute Neuts (auto) 14.6 H (2.0-8.3) x10*3/uL Absolute Nucleated RBC 0.000 (0.0-0.012) X10*3/uL Nucleated RBC % (auto) 0.0 (0.0-0.2) /100WBC ESR (0-15) MM/HR Sodium 134 L (135-145) mmol/L Potassium 4.0 (3.3-5.1) mmol/L Chloride 98 (96-108) mmol/L Carbon Dioxide 25 (22-29) mmol/L Anion Gap 15 (12-20) BUN 12 (9-16) mg/dL Creatinine 0.77 (0.5-1.4) mg/dL Estim Creat Clear Calc 132.5 Estimated GFR > 60 Random Glucose 203 H (60-115) mg/dL Lactic Acid 2.1 H* (0.5-2.0) mmol/L Calcium 8.2 L (8.4-10.2) mg/dL Magnesium 1.9 (1.6-2.6) mg/dL Total Bilirubin 0.7 (0.0-1.0) mg/dL AST 29 (5-37) U/L ALT 17 (0-40) U/L Alkaline Phosphatase 155 H (39-117) U/L C-Reactive Protein 19.93 H (< or = 0.50) mg/dL Total Protein 5.6 L (6.5-8.0) g/dL Albumin 2.4 L (3.5-5.0) g/dL Urine Color Urine Appearance Urine pH (5.0-9.0) Ur Specific [place] (1.005-1.025) Urine Protein (Neg-Trace) mg/dL Urine Glucose (UA) (Negative) mg/dL Urine Ketones (Negative) mg/dL Urine Blood (Negative) Urine Nitrite (Negative) Ur Leukocyte Esterase (Negative) Urine RBC (0-2) /HPF Urine WBC (0-5) /HPF Ur Squamous Epith Cells (0-2) /HPF Urine Bacteria (None Seen) Hyaline Casts (0-2) /LPF Urine Opiates Screen (Not Detect) Urine Fentanyl Screen (Not Detect) Ur Barbiturates Screen (Not Detect) Ur Phencyclidine Scrn (Not Detect) Ur Amphetamines Screen (Not Detect) U Benzodiazepines Scrn (Not Detect) Urine Cocaine Screen (Not Detect) U Marijuana (THC) Screen (Not Detect) Hep Bs Antigen (Negative) Hep Bs Antibody (Nonreactive) Hep B Core Total Ab (Nonreactive) Hepatitis C Ab (EIA) (Nonreactive) HIV 1&2 Ab/P24 Ag 4thGn (Nonreactive) Influenza Type A (PCR) (Negative) Influenza Type B (PCR) (Negative) RSV RNA Qual (PCR) (Negative) SARS-CoV-2 RNA (RT-PCR) (Negative) 10/17/22 10/17/22 Range/Units 10:41 10:41 WBC (4.8-10.8) X10*3/uL RBC (4.60-5.80) X10*6/uL Hgb (14.0-18.0) g/dl Hct (42.0-52.0) % MCV (80.0-98.0) fL MCH (27.0-33.0) pg MCHC (31.0-36.0) g/dl RDW (11.0-16.0) % Plt Count (160-400) X10*3/uL MPV (9.4-12.4) fL Immature Gran % (Auto) (0.0-0.4) % Neut % (Auto) (45-73) % Lymph % (Auto) (20-40) % [place] % (Auto) (2-11) % Eos % (Auto) (0-4) % Baso % (Auto) (0-2) % Lymph # (Auto) (1.2-4.9) X10*3/uL [place] # (Auto) (0.1-1.2) X10*3/uL Eos # (Auto) (0.0-0.4) X10*3/uL Baso # (Auto) (0.0-0.2) X10*3/uL Abs Immat Gran (auto) (0.00-0.03) X10*3/uL Absolute Neuts (auto) (2.0-8.3) x10*3/uL Absolute Nucleated RBC (0.0-0.012) X10*3/uL Nucleated RBC % (auto) (0.0-0.2) /100WBC ESR 98 H (0-15) MM/HR Sodium (135-145) mmol/L Potassium (3.3-5.1) mmol/L Chloride (96-108) mmol/L Carbon Dioxide (22-29) mmol/L Anion Gap (12-20) BUN (9-16) mg/dL Creatinine (0.5-1.4) mg/dL Estim Creat Clear Calc Estimated GFR Random Glucose (60-115) mg/dL Lactic Acid (0.5-2.0) mmol/L Calcium (8.4-10.2) mg/dL Magnesium (1.6-2.6) mg/dL Total Bilirubin (0.0-1.0) mg/dL AST (5-37) U/L ALT (0-40) U/L Alkaline Phosphatase (39-117) U/L C-Reactive Protein (< or = 0.50) mg/dL Total Protein (6.5-8.0) g/dL Albumin (3.5-5.0) g/dL Urine Color Urine Appearance Urine pH (5.0-9.0) Ur Specific [place] (1.005-1.025) Urine Protein (Neg-Trace) mg/dL Urine Glucose (UA) (Negative) mg/dL Urine Ketones (Negative) mg/dL Urine Blood (Negative) Urine Nitrite (Negative) Ur Leukocyte Esterase (Negative) Urine RBC (0-2) /HPF Urine WBC (0-5) /HPF Ur Squamous Epith Cells (0-2) /HPF Urine Bacteria (None Seen) Hyaline Casts (0-2) /LPF Urine Opiates Screen (Not Detect) Urine Fentanyl Screen (Not Detect) Ur Barbiturates Screen (Not Detect) Ur Phencyclidine Scrn (Not Detect) Ur Amphetamines Screen (Not Detect) U Benzodiazepines Scrn (Not Detect) Urine Cocaine Screen (Not Detect) U Marijuana (THC) Screen (Not Detect) Hep Bs Antigen Negative (Negative) Hep Bs Antibody NONREACTIVE (Nonreactive) Hep B Core Total Ab Nonreactive (Nonreactive) Hepatitis C Ab (EIA) Reactive H (Nonreactive) HIV 1&2 Ab/P24 Ag 4thGn Nonreactive (Nonreactive) Influenza Type A (PCR) (Negative) Influenza Type B (PCR) (Negative) RSV RNA Qual (PCR) (Negative) SARS-CoV-2 RNA (RT-PCR) (Negative) <JOSE Goode - Last Filed: 10/17/22 15:35> Lab Results 10/17/22 10/17/22 10/17/22 Range/Units 10:09 10:09 10:09 WBC (4.8-10.8) X10*3/uL RBC (4.60-5.80) X10*6/uL Hgb (14.0-18.0) g/dl Hct (42.0-52.0) % MCV (80.0-98.0) fL MCH (27.0-33.0) pg MCHC (31.0-36.0) g/dl RDW (11.0-16.0) % Plt Count (160-400) X10*3/uL MPV (9.4-12.4) fL Immature Gran % (Auto) (0.0-0.4) % Neut % (Auto) (45-73) % Lymph % (Auto) (20-40) % [place] % (Auto) (2-11) % Eos % (Auto) (0-4) % Baso % (Auto) (0-2) % Lymph # (Auto) (1.2-4.9) X10*3/uL [place] # (Auto) (0.1-1.2) X10*3/uL Eos # (Auto) (0.0-0.4) X10*3/uL Baso # (Auto) (0.0-0.2) X10*3/uL Abs Immat Gran (auto) (0.00-0.03) X10*3/uL Absolute Neuts (auto) (2.0-8.3) x10*3/uL Absolute Nucleated RBC (0.0-0.012) X10*3/uL Nucleated RBC % (auto) (0.0-0.2) /100WBC ESR (0-15) MM/HR Sodium (135-145) mmol/L Potassium (3.3-5.1) mmol/L Chloride (96-108) mmol/L Carbon Dioxide (22-29) mmol/L Anion Gap (12-20) BUN (9-16) mg/dL Creatinine (0.5-1.4) mg/dL Estim Creat Clear Calc Estimated GFR Random Glucose (60-115) mg/dL Lactic Acid (0.5-2.0) mmol/L Calcium (8.4-10.2) mg/dL Magnesium (1.6-2.6) mg/dL Total Bilirubin (0.0-1.0) mg/dL AST (5-37) U/L ALT (0-40) U/L Alkaline Phosphatase (39-117) U/L C-Reactive Protein (< or = 0.50) mg/dL Total Protein (6.5-8.0) g/dL Albumin (3.5-5.0) g/dL Urine Color Dark Yellow Urine Appearance Cloudy Urine pH 5.5 (5.0-9.0) Ur Specific [place] 1.025 (1.005-1.025) Urine Protein Trace (Neg-Trace) mg/dL Urine Glucose (UA) Negative (Negative) mg/dL Urine Ketones Trace (Negative) mg/dL Urine Blood Negative (Negative) Urine Nitrite Negative (Negative) Ur Leukocyte Esterase Trace H (Negative) Urine RBC 0-2 (0-2) /HPF Urine WBC 0-5 (0-5) /HPF Ur Squamous Epith Cells 0-2 (0-2) /HPF Urine Bacteria None Seen (None Seen) Hyaline Casts 0-2 (0-2) /LPF Urine Opiates Screen POSITIVE H (Not Detect) Urine Fentanyl Screen POSITIVE H (Not Detect) Ur Barbiturates Screen Not Detected (Not Detect) Ur Phencyclidine Scrn Not Detected (Not Detect) Ur Amphetamines Screen Not Detected (Not Detect) U Benzodiazepines Scrn Not Detected (Not Detect) Urine Cocaine Screen POSITIVE H (Not Detect) U Marijuana (THC) Screen Not Detected (Not Detect) Hep Bs Antigen (Negative) Hep Bs Antibody (Nonreactive) Hep B Core Total Ab (Nonreactive) Hepatitis C Ab (EIA) (Nonreactive) HIV 1&2 Ab/P24 Ag 4thGn (Nonreactive) Influenza Type A (PCR) NEGATIVE (Negative) Influenza Type B (PCR) NEGATIVE (Negative) RSV RNA Qual (PCR) NEGATIVE (Negative) SARS-CoV-2 RNA (RT-PCR) NEGATIVE (Negative) 10/17/22 10/17/22 10/17/22 Range/Units 10:41 10:41 10:41 WBC 16.4 H (4.8-10.8) X10*3/uL RBC 3.52 L (4.60-5.80) X10*6/uL Hgb 9.3 L (14.0-18.0) g/dl Hct 28.2 L (42.0-52.0) % MCV 80.1 (80.0-98.0) fL MCH 26.4 L (27.0-33.0) pg MCHC 33.0 (31.0-36.0) g/dl RDW 14.4 (11.0-16.0) % Plt Count 496 H (160-400) X10*3/uL MPV 8.5 L (9.4-12.4) fL Immature Gran % (Auto) 1.0 H (0.0-0.4) % Neut % (Auto) 88.8 H (45-73) % Lymph % (Auto) 6.1 L (20-40) % [place] % (Auto) 3.8 (2-11) % Eos % (Auto) 0.1 (0-4) % Baso % (Auto) 0.2 (0-2) % Lymph # (Auto) 1.0 L (1.2-4.9) X10*3/uL [place] # (Auto) 0.6 (0.1-1.2) X10*3/uL Eos # (Auto) 0.0 (0.0-0.4) X10*3/uL Baso # (Auto) 0.0 (0.0-0.2) X10*3/uL Abs Immat Gran (auto) 0.16 H (0.00-0.03) X10*3/uL Absolute Neuts (auto) 14.6 H (2.0-8.3) x10*3/uL Absolute Nucleated RBC 0.000 (0.0-0.012) X10*3/uL Nucleated RBC % (auto) 0.0 (0.0-0.2) /100WBC ESR (0-15) MM/HR Sodium 134 L (135-145) mmol/L Potassium 4.0 (3.3-5.1) mmol/L Chloride 98 (96-108) mmol/L Carbon Dioxide 25 (22-29) mmol/L Anion Gap 15 (12-20) BUN 12 (9-16) mg/dL Creatinine 0.77 (0.5-1.4) mg/dL Estim Creat Clear Calc 132.5 Estimated GFR > 60 Random Glucose 203 H (60-115) mg/dL Lactic Acid 2.1 H* (0.5-2.0) mmol/L Calcium 8.2 L (8.4-10.2) mg/dL Magnesium 1.9 (1.6-2.6) mg/dL Total Bilirubin 0.7 (0.0-1.0) mg/dL AST 29 (5-37) U/L ALT 17 (0-40) U/L Alkaline Phosphatase 155 H (39-117) U/L C-Reactive Protein 19.93 H (< or = 0.50) mg/dL Total Protein 5.6 L (6.5-8.0) g/dL Albumin 2.4 L (3.5-5.0) g/dL Urine Color Urine Appearance Urine pH (5.0-9.0) Ur Specific [place] (1.005-1.025) Urine Protein (Neg-Trace) mg/dL Urine Glucose (UA) (Negative) mg/dL Urine Ketones (Negative) mg/dL Urine Blood (Negative) Urine Nitrite (Negative) Ur Leukocyte Esterase (Negative) Urine RBC (0-2) /HPF Urine WBC (0-5) /HPF Ur Squamous Epith Cells (0-2) /HPF Urine Bacteria (None Seen) Hyaline Casts (0-2) /LPF Urine Opiates Screen (Not Detect) Urine Fentanyl Screen (Not Detect) Ur Barbiturates Screen (Not Detect) Ur Phencyclidine Scrn (Not Detect) Ur Amphetamines Screen (Not Detect) U Benzodiazepines Scrn (Not Detect) Urine Cocaine Screen (Not Detect) U Marijuana (THC) Screen (Not Detect) Hep Bs Antigen (Negative) Hep Bs Antibody (Nonreactive) Hep B Core Total Ab (Nonreactive) Hepatitis C Ab (EIA) (Nonreactive) HIV 1&2 Ab/P24 Ag 4thGn (Nonreactive) Influenza Type A (PCR) (Negative) Influenza Type B (PCR) (Negative) RSV RNA Qual (PCR) (Negative) SARS-CoV-2 RNA (RT-PCR) (Negative) 10/17/22 10/17/22 Range/Units 10:41 10:41 WBC (4.8-10.8) X10*3/uL RBC (4.60-5.80) X10*6/uL Hgb (14.0-18.0) g/dl Hct (42.0-52.0) % MCV (80.0-98.0) fL MCH (27.0-33.0) pg MCHC (31.0-36.0) g/dl RDW (11.0-16.0) % Plt Count (160-400) X10*3/uL MPV (9.4-12.4) fL Immature Gran % (Auto) (0.0-0.4) % Neut % (Auto) (45-73) % Lymph % (Auto) (20-40) % [place] % (Auto) (2-11) % Eos % (Auto) (0-4) % Baso % (Auto) (0-2) % Lymph # (Auto) (1.2-4.9) X10*3/uL [place] # (Auto) (0.1-1.2) X10*3/uL Eos # (Auto) (0.0-0.4) X10*3/uL Baso # (Auto) (0.0-0.2) X10*3/uL Abs Immat Gran (auto) (0.00-0.03) X10*3/uL Absolute Neuts (auto) (2.0-8.3) x10*3/uL Absolute Nucleated RBC (0.0-0.012) X10*3/uL Nucleated RBC % (auto) (0.0-0.2) /100WBC ESR 98 H (0-15) MM/HR Sodium (135-145) mmol/L Potassium (3.3-5.1) mmol/L Chloride (96-108) mmol/L Carbon Dioxide (22-29) mmol/L Anion Gap (12-20) BUN (9-16) mg/dL Creatinine (0.5-1.4) mg/dL Estim Creat Clear Calc Estimated GFR Random Glucose (60-115) mg/dL Lactic Acid (0.5-2.0) mmol/L Calcium (8.4-10.2) mg/dL Magnesium (1.6-2.6) mg/dL Total Bilirubin (0.0-1.0) mg/dL AST (5-37) U/L ALT (0-40) U/L Alkaline Phosphatase (39-117) U/L C-Reactive Protein (< or = 0.50) mg/dL Total Protein (6.5-8.0) g/dL Albumin (3.5-5.0) g/dL Urine Color Urine Appearance Urine pH (5.0-9.0) Ur Specific [place] (1.005-1.025) Urine Protein (Neg-Trace) mg/dL Urine Glucose (UA) (Negative) mg/dL Urine Ketones (Negative) mg/dL Urine Blood (Negative) Urine Nitrite (Negative) Ur Leukocyte Esterase (Negative) Urine RBC (0-2) /HPF Urine WBC (0-5) /HPF Ur Squamous Epith Cells (0-2) /HPF Urine Bacteria (None Seen) Hyaline Casts (0-2) /LPF Urine Opiates Screen (Not Detect) Urine Fentanyl Screen (Not Detect) Ur Barbiturates Screen (Not Detect) Ur Phencyclidine Scrn (Not Detect) Ur Amphetamines Screen (Not Detect) U Benzodiazepines Scrn (Not Detect) Urine Cocaine Screen (Not Detect) U Marijuana (THC) Screen (Not Detect) Hep Bs Antigen Negative (Negative) Hep Bs Antibody NONREACTIVE (Nonreactive) Hep B Core Total Ab Nonreactive (Nonreactive) Hepatitis C Ab (EIA) Reactive H (Nonreactive) HIV 1&2 Ab/P24 Ag 4thGn Nonreactive (Nonreactive) Influenza Type A (PCR) (Negative) Influenza Type B (PCR) (Negative) RSV RNA Qual (PCR) (Negative) SARS-CoV-2 RNA (RT-PCR) (Negative) <Anibal Cantrell MD - Last Filed: 10/17/22 14:21> Radiology Impression Radiologist Impression: My interpretation is in agreement with the radiologist's impression of these imaging studies. EXAMINATION: XR CHEST CLINICAL INFORMATION: Cough, right hip pain. COMPARISON: None TECHNIQUE: 2 views of the chest were obtained. FINDINGS: There is an air-fluid level with haziness in right lower lobe posterior segment suggestive of a large liquefied consolidation or an abscess. Rest lungs are expanded and clear. Heart size and progress clarities normal. There is mild blunting of right CP angle from pleural thickening or effusion. No gross bony abnormality. XR/XR chest 2V IMPRESSION: Large right lower lobe posterior segment and fluid level suggestive of liquefied consolidation or abscess. Recommend CT chest with contrast. Dictated By: Ludwig Ramos MD Signed By: Electronically signed by Ludwig Ramos MD 10/17/22 1014 EXAMINATION: CT CHEST WITH CONTRAST CLINICAL INFORMATION: Question of lung abscess on chest radiograph? COMPARISON: Chest radiograph earlier today? TECHNIQUE: Multidetector volumetric CT imaging of the chest was obtained after the administration of 65 mL of Omnipaque 350 intravenous contrast without immediate adverse reactions. Axial MIP volume rendering provided. Sagittal and coronal reformatted images were obtained. This CT examination was performed using dose optimization techniques as appropriate, variously including the following: *Automated exposure control *Adjustment of mA and/or kV according to patient size (this includes techniques or standardized protocols for targeted exams where dose is matched to indication/reason for exam; i.e. extremities or head) *Use of iterative reconstruction technique DLP: 220 mGy-cm FINDINGS: LUNGS AND PLEURA: At the right lung base in the right lower lobe, there is a large complex collection with fluid and air measuring 14.2 x 9.9 10.0 cm consistent with a large lung abscess. There are 2 adjacent loculated pleural collections measuring 1.7 x 3.6 x 3.1 cm just lateral to the abscess (4:315, 6:88) as well as a collection medially abutting the mediastinum measuring 6.5 x 1.6 x 4.1 cm (4:356, 5:55). There is a small amount of loculated fluid present in the major fissure. Incidental note made of a tiny 2 mm nodule in the inferior right upper lobe adjacent to the minor fissure (4:220). Left lung appears normal. MEDIASTINUM: The mediastinum is normal.? PLEURA: There is no pleural effusion. No pleural mass or thickening.? AXILLA: No lymphadenopathy.? UPPER ABDOMEN: The spleen is enlarged measuring at least 17 cm in greatest length. Hepatomegaly may be present as well the entire liver is not included on this chest CT. OSSEOUS STRUCTURES: Unremarkable.? CT/CT chest w IV con IMPRESSION: 1.? Large right lower lobe lung abscess with 2 adjacent loculated pleural collections as described above. 2.? Incidental note made of splenomegaly and possible hepatomegaly. ? Fleischner guidelines were followed. Dictated By: Anibal Rodriguez MD Signed By: Electronically signed by Anibal Rodriguez MD 10/17/22 1419 <JOSE Goode - Last Filed: 10/17/22 15:35> Critical Care Time Critical Care Time Critical Care Time: Yes <JOSE Goode - Last Filed: 10/17/22 15:35> Total Critical Care Time: 45 <JOSE Goode - Last Filed: 10/17/22 15:35> Attestation: I spent 45 minutes of Critical Care Time with this patient. This does not include time spent on separately reported billable procedures. <JOSE Goode - Last Filed: 10/17/22 15:35> Discharge Plan Discharge Clinical Impression: Hepatitis C antibody test positive, History of intravenous drug abuse, Thoracic abscess <JOSE Goode - Last Filed: 10/17/22 15:35> Patient Disposition: Admitted As Inpatient <JOSE Goode - Last Filed: 10/17/22 15:35>
[2022-10-17 10:17] LABS: Appearance Urine Cloudy; Color Urine Dark Yellow; Glucose Urine UA Negative (Negative); Leukocyte Esterase Urine Trace (Negative); Nitrite Urine Negative (Negative); PH 5.5 (5.0-9.0); Specific Gravity - Urine 1.025 (1.005-1.025); UMIC TRIGGER UACC YES; Urine Blood Negative (Negative); Urine Ketones Trace mg/dL (Negative); Urine Protein Trace mg/dL (Neg-Trace)
[2022-10-17] MEDS: Ibuprofen 800 MG TABLET PO (10:27)
[2022-10-17 10:28] LABS: Bacteria Urine None Seen (None Seen); Hyaline Casts Urine 0-2 /LPF (0-2); RBC Urine 0-2 /HPF (0-2); Squamous Epithelial Cell Urine 0-2 /HPF (0-2); WBC Urine 0-5 /HPF (0-5)
[2022-10-17 10:48] LABS: MANUAL DIFF FLAG NO
--- NOTE | 2022-10-17 10:49 | PC.NURSE ---
patient a&ox3, iv inserted, labs drawn, urine obtained, nasal swab obtained, pt had cxr performed, pt medicated with ibuprofen per order and will have a ct scan.
[2022-10-17 10:50] LABS: Basophils Percent Auto 0.2 % (0-2); Eosinophils Percent Auto 0.1 % (0-4); Hematocrit 28.2 % (42.0-52.0); Hemoglobin 9.3 g/dl (14.0-18.0); Imm Gran Abs Auto 0.16 X10*3/uL (0.00-0.03); Lymphocytes Percent Auto 6.1 % (20-40); Mean Corpuscular Hemoglobin 26.4 pg (27.0-33.0); Mean Corpuscular Volume 80.1 fL (80.0-98.0); Mean Platelet Volume 8.5 fL (9.4-12.4); Monocytes Absolute Auto 0.6 X10*3/uL (0.1-1.2); Monocytes Percent Auto 3.8 % (2-11); Neutrophils Absolute Auto 14.6 x10*3/uL (2.0-8.3); Neutrophils Percent Auto 88.8 % (45-73); Platelet Count 496 X10*3/uL (160-400); Red Blood Count 3.52 X10*6/uL (4.60-5.80); Red Cell Distribution Width 14.4 % (11.0-16.0); White Blood Count 16.4 X10*3/uL (4.8-10.8)
[2022-10-17 10:57] LABS: Influenza A PCR NEGATIVE (Negative); Influenza B PCR NEGATIVE (Negative); Resp Syncy Virus RNA Qual PCR NEGATIVE (Negative); SARS COV2 PCR INHOUSE NEGATIVE (Negative)
[2022-10-17] MEDS: LORazepam 2 MG/ML VIAL IVPUSH (11:00)
--- NOTE | 2022-10-17 11:01 | PC.NURSE ---
pt medicated for axiety
[2022-10-17] MEDS: Piperacillin Sodium/Tazobactam 3.375 GM in 0.9 % Sodium Chloride 50 ML IV (11:06)
--- NOTE | 2022-10-17 11:09 | PC.NURSE ---
pt resting on stretcher at this time, states he is feeling some relief of anxiety from Ativan. Pt requesting food/drink at this time. pt educated that he cannot eat or drink at this time
[2022-10-17 11:33] LABS: Erythrocyte Sedimentation Rate 98 MM/HR (0-15)
[2022-10-17] MEDS: vancomycin HCL 1,500 MG in 0.9 % Sodium Chloride 500 ML 333.33 MG IV (11:37)
[2022-10-17 12:07] LABS: Lactic Acid 2.1 mmol/L (0.5-2.0)
[2022-10-17 12:10] LABS: Alanine Aminotransferase 17 U/L (0-40); Albumin Level 2.4 g/dL (3.5-5.0); Alkaline Phosphatase 155 U/L (39-117); Anion Gap 15 (12-20); Aspartate Amino Transferase 29 U/L (5-37); Bilirubin Total 0.7 mg/dL (0.0-1.0); Blood Urea Nitrogen 12 mg/dL (9-16); C Reactive Protein 19.93 mg/dL (< or = 0.50); Calcium 8.2 mg/dL (8.4-10.2); Carbon Dioxide 25 mmol/L (22-29); Chloride 98 mmol/L (96-108); Creatinine Clr Calc Pharmacy 132.5; Estimated Glomerular Filt Rate > 60; Glucose Random 203 mg/dL (60-115); Magnesium 1.9 mg/dL (1.6-2.6); Sodium 134 mmol/L (135-145); Total Protein 5.6 g/dL (6.5-8.0)
[2022-10-17] MEDS: 0.9 % Sodium Chloride 2,041.17 ML 2041.17 ML IV (12:15)
[2022-10-17] MEDS: iohexoL 350 MG/ML 100 ML INFUS..BTL 65 ML IV (12:27)
[2022-10-17 12:39] LABS: HBS Num1 0.92 mIU/mL (0-7.99); HBc Num1 0.17 S/CO (0.00-0.79); HBsAGNum1 0.32 S/CO (0.00-0.99); HIV AB/AG Nonreactive (Nonreactive); HIV Num 1 0.05 S/CO (0.00-0.99); Hepatitis B Core Antibody Nonreactive (Nonreactive); Hepatitis B Surface Antigen Negative (Negative); ~HepC Num1 14.94 S/CO (0.00-0.79); ~Hepatitis B Surface Antibody NONREACTIVE (Nonreactive); ~Hepatitis C Antibody Reactive (Nonreactive)
[2022-10-17 12:48] LABS: Reflex Lactate? Lactic Acid Added
--- NOTE | 2022-10-17 13:16 | PHA.MEDREC ---
Pharmacy Consult ? Medication Reconciliation Pharmacy has completed the medication reconciliation. PATIENT TAKES PROAIR AND METHADONE. GOT DOSE OF METHADONE TODAY 125MG 10/17 FROM [facility]
[2022-10-17 14:01] LABS: Hepatitis A Antibody IgM 0.17 Index (0-0.79); ~Hepatitis A Antibody IgM Nonreactive (Nonreactive)
[2022-10-17 14:29] VITALS: PULSE 73
--- NOTE | 2022-10-17 14:38 | P.HPHOSP_ITS ---
History of Present Illness Date of Service: 10/17/22 Attending physician on admission: Chalo Arreola Chief Complaint: shortness of breath, chest pain, fevers 32-year-old male with history of mild intermittent asthma, anxiety, agoraphobia, history of IV drug abuse last use 1.5 months ago, and opioid use disorder on methadone presented to the ED earlier today for evaluation of right flank pain, shortness of breath, dry cough, pleuritic and positional chest pain, and fevers up to 100.6 ongoing for 2 weeks. He is also reporting polyuria and dysuria as well as swelling of the fingers bilaterally. On arrival, temperature 99.4 degrees, tachycardic to 106, no tachypnea or hypoxia. Leukocytosis 16.4, normocytic anemia with H/H 9.3/28.2%. Renal function normal. Sodium 134, potassium 4.0, chloride 98, CO2 25. Glucose 203. Initial lactic acid 2.1. CRP 19.93, ESR 98. Urinalysis unremarkable. HIV antibody nonreactive. Hepatitis-C antibody reactive. Negative for influenza, RSV, COVID-19. CXR with large right lower lobe posterior segment and fluid level suggestive of liquified consolidation or abscess. Follow-up CT chest showing large right lower lobe lung abscess with 2 adjacent loculated pleural collections as well as incidental findings of splenomegaly and possible hepatomegaly. Patient treated empirically with vancomycin and Zosyn and given IV NS bolus of 33cc/kg. Also given lorazepam 2mg for anxiety with improvement in HR to 73. Pt denies any pain currently and f ollows with nearest or methadone clinic. Denies etoh use. Smokes about 4 cigarettes daily. MJ user. Last IV heroin use was 1.5 months ago after relapsing following 7-8 months of sobriety. No other illicit drug. Patient be admitted for further other management of lung abscess. Review of Systems Review of Systems: General: No fevers, malaise, unintentional weight loss Cardiovascular: +pleuritic/positional chest pain. No palpitations, or leg edema Respiratory: +sob, +cough. No wheezing GI: No abdominal pain, nausea, vomiting, diarrhea, constipation, melena, hematochezia : No dysuria, hematuria, increased urinary frequency, decreased urinary output MSK: No myalgia. +right flank pain Neuro: No headaches, weakness, paresthesias Skin: No rashes or lesions [facility] Medical History (Updated 10/17/22 @ 15:04 by JOSE Adorno) Agoraphobia Anxiety Asthma Hepatitis C antibody test positive History of intravenous drug abuse Opioid use disorder Family History (Updated 10/17/22 @ 14:49 by JOSE Adorno) Father Lung cancer Social History (Updated 10/17/22 @ 14:49 by JOSE Adorno) Alcohol intake: never Patient Tobacco Use Status: Current everyday Tobacco user Tobacco use type: Cigarette Cigarette Packs Per Day: 0.25 Smoked in Last 30 Days: Yes Use of substances other than those prescribed or required for medical reasons: Yes Substance Use Type: Marijuana Substance Use Frequency: Occasionally Any prior treatment program specific to substance use: Yes Advance Directives: No Advance Directives Information Provided: Yes Nutrition Risks: No Nutritional Risk Meds Allergies Allergy/AdvReac Type Severity Reaction Status Date / Time codeine Allergy Hives Verified 10/17/22 09:45 Active Medications: Current Medications Acetaminophen (Acetaminophen 325 Mg Tablet) 650 mg PO Q6H PRN PRN Reason: Pain, Mild (Pain Scale 1-3) Docusate Sodium (Docusate Sodium 100 Mg Capsule) 100 mg PO BID PRN PRN Reason: Constipation Enoxaparin Sodium (Enoxaparin Sodium 40 Mg/0.4 Ml Syringe) 40 mg SUBCUT Q24H SHAYY Cefepime HCl 2 gm/ Sodium (Chloride) 50 mls @ 100 mls/hr IV Q8H SHAYY Lorazepam (Lorazepam 0.5 Mg Tablet) 0.5 mg PO Q6H PRN PRN Reason: Anxiety Ondansetron HCl (Ondansetron Hcl 4 Mg/2 Ml Vial) 4 mg IVPUSH Q8H PRN PRN Reason: Nausea and Vomiting Pharmacy Consult (Consult Rx Perform Med Rec) 1 each MISCELLANE ONCE PRN PRN Reason: Consult order Pharmacy Consult (Consult Rx Vancomycin Dosing) 1 each MISCELLANE DAILY PRN PRN Reason: Consult order Sodium Chloride (0.9 % Sodium Chloride Flush 3 Ml Syringe) 3 ml IVFLUSH QSHIFT [facility] Home Medications Medication Instructions Recorded Confirmed Last Taken Type albuterol sulfate 90 mcg/actuation 1 inh inhalation QID PRN Wheezing 10/17/22 10/17/22 Unknown History aerosol inhaler methadone 10 mg/5 mL oral solution 125 mg PO DAILY 10/17/22 10/17/22 10/17/22 Hi story Physical Exam Vital Signs and Narrative: Vital Signs: Last Vital Signs Temp 99.4 F 10/17/22 09:45 Pulse 73 10/17/22 14:29 Resp 20 10/17/22 09:45 BP 119/76 10/17/22 09:45 Pulse Ox 98 10/17/22 09:45 O2 Del Method 10/17/22 09:45 BMI result Body Mass Index 20.9 Constitutional - Awake and Alert, No apparent distress Eyes - PERRLA, EOMI Cardiovascular - S1S2, RRR, No edema Respiratory - Normal lung expansion, Normal respiratory effort, No respiratory distress, absent lung sounds RLL, otherwise CTA bilaterally Gastrointestinal - NT / ND; +BS; No rebound or guarding Extremities - no calf tenderness bilaterally, no swelling Skin - Warm/Dry Neurological - Alert & oriented x3, CN II-XII in tact, 5/5 strength BUE and BLE Psychological - Appropriate affect Results Labs 10/17/22 10:41 10/17/22 10:41 Labs: Laboratory Results - last 24 hr 10/17/22 10/17/22 10/17/22 10:09 10:09 10:41 MCV 80.1 MCH 26.4 L MCHC 33.0 RDW 14.4 Plt Count 496 H MPV 8.5 L Immature Gran % (Auto) 1.0 H Neut % (Auto) 88.8 H Lymph % (Auto) 6.1 L [place] % (Auto) 3.8 Eos % (Auto) 0.1 Baso % (Auto) 0.2 Lymph # (Auto) 1.0 L [place] # (Auto) 0.6 Eos # (Auto) 0.0 Baso # (Auto) 0.0 Abs Immat Gran (auto) 0.16 H Absolute Neuts (auto) 14.6 H Absolute Nucleated RBC 0.000 Nucleated RBC % (auto) 0.0 ESR Anion Gap Estim Creat Clear Calc Estimated GFR Random Glucose Lactic Acid Calcium Magnesium Total Bilirubin AST ALT Alkaline Phosphatase C-Reactive Protein Total Protein Albumin Urine Color Dark Yellow Urine Appearance Cloudy Urine pH 5.5 Ur Specific [place] 1.025 Urine Protein Trace Urine Glucose (UA) Negative Urine Ketones Trace Urine Blood Negative Urine Nitrite Negative Ur Leukocyte Esterase Trace H Urine RBC 0-2 Urine WBC 0-5 Ur Squamous Epith Cells 0-2 Urine Bacteria None Seen Hyaline Casts 0-2 Hep Bs Antigen Hep Bs Antibody Hep B Core Total Ab Hepatitis C Ab (EIA) HIV 1&2 Ab/P24 Ag 4thGn Influenza Type A (PCR) NEGATIVE Influenza Type B (PCR) NEGATIVE RSV RNA Qual (PCR) NEGATIVE SARS-CoV-2 RNA (RT-PCR) NEGATIVE 10/17/22 10/17/22 10/17/22 10:41 10:41 10:41 MCV MCH MCHC RDW Plt Count MPV Immature Gran % (Auto) Neut % (Auto) Lymph % (Auto) [place] % (Auto) Eos % (Auto) Baso % (Auto) Lymph # (Auto) [place] # (Auto) Eos # (Auto) Baso # (Auto) Abs Immat Gran (auto) Absolute Neuts (auto) Absolute Nucleated RBC Nucleated RBC % (auto) ESR 98 H Anion Gap 15 Estim Creat Clear Calc 132.5 Estimated GFR > 60 Random Glucose 203 H Lactic Acid 2.1 H* Calcium 8.2 L Magnesium 1.9 Total Bilirubin 0.7 AST 29 ALT 17 Alkaline Phosphatase 155 H C-Reactive Protein 19.93 H Total Protein 5.6 L Albumin 2.4 L Urine Color Urine Appearance Urine pH Ur Specific [place] Urine Protein Urine Glucose (UA) Urine Ketones Urine Blood Urine Nitrite Ur Leukocyte Esterase Urine RBC Urine WBC Ur Squamous Epith Cells Urine Bacteria Hyaline Casts Hep Bs Antigen Hep Bs Antibody Hep B Core Total Ab Hepatitis C Ab (EIA) HIV 1&2 Ab/P24 Ag 4thGn Influenza Type A (PCR) Influenza Type B (PCR) RSV RNA Qual (PCR) SARS-CoV-2 RNA (RT-PCR) 10/17/22 10:41 MCV MCH MCHC RDW Plt Count MPV Immature Gran % (Auto) Neut % (Auto) Lymph % (Auto) [place] % (Auto) Eos % (Auto) Baso % (Auto) Lymph # (Auto) [place] # (Auto) Eos # (Auto) Baso # (Auto) Abs Immat Gran (auto) Absolute Neuts (auto) Absolute Nucleated RBC Nucleated RBC % (auto) ESR Anion Gap Estim Creat Clear Calc Estimated GFR Random Glucose Lactic Acid Calcium Magnesium Total Bilirubin AST ALT Alkaline Phosphatase C-Reactive Protein Total Protein Albumin Urine Color Urine Appearance Urine pH Ur Specific [place] Urine Protein Urine Glucose (UA) Urine Ketones Urine Blood Urine Nitrite Ur Leukocyte Esterase Urine RBC Urine WBC Ur Squamous Epith Cells Urine Bacteria Hyaline Casts Hep Bs Antigen Negative Hep Bs Antibody NONREACTIVE Hep B Core Total Ab Nonreactive Hepatitis C Ab (EIA) Reactive H HIV 1&2 Ab/P24 Ag 4thGn Nonreactive Influenza Type A (PCR) Influenza Type B (PCR) RSV RNA Qual (PCR) SARS-CoV-2 RNA (RT-PCR) Imaging Radiologist's Impressions: Impressions Chest X-Ray 10/17/22 10:06 IMPRESSION: Large right lower lobe posterior segment and fluid level suggestive of liquefied consolidation or abscess. Recommend CT chest with contrast. Chest CT 10/17/22 12:33 IMPRESSION: 1. Large right lower lobe lung abscess with 2 adjacent loculated pleural collections as described above. 2. Incidental note made of splenomegaly and possible hepatomegaly. Fleischner guidelines were followed. Assessment and Plan (1) Abscess of lower lobe of right lung without pneumonia: Status: Acute (2) Hepatitis C antibody test positive: Status: Acute Plan 32-year-old male with history of mild intermittent asthma, anxiety, agoraphobia, history of IV drug abuse last use 1.5 months ago, and opioid use disorder on methadone admitted for management of lung abscess in IVDA. #RLL abscess -CXR and CT chest with large posterior lung abscess RLL -Leukocytosis 16.4. Initial tachycardia r/t anxiety not sepsis -CRP 19.4/ESR 98 -IV cefepime and vanco -Appreciate ID and pulm input -IR thoracentesis tomorrow -regular diet now. NPO after midnight -follow CBC, cultures -admit to [facility] #Hepatitis C Ab positive -Viral Load pending -Girlfriend positive for Hep C and did not complete treatment -HIV ab negative #Opioid use Disorder with hx IVDA -continue methadone # anxiety/agoraphobia -can use lorazepam 0.5 mg p.o. p.r.n. # mild intermittent asthma-without acute exacerbation -albuterol p.r.n. DVT prophylaxis-Lovenox Full code Patient requires inpatient stay for at least 2 midnights for management of right lung abscess an IV drug abuser requiring IV antibiotics, IR drainage, and expert consultation. Time Spent With Patient Time: Total time managing care of this patient today ____ minutes. Quality Stroke Does the patient have a stroke diagnosis?: No VTE Prior VTE?: No VTE Risk Level:: Medical - moderate - high VTE Device Contraindication: Treatment Not Indicated VTE Drug Contraindication: N/A - Med Ordered
--- NOTE | 2022-10-17 14:54 | PHA.PROG ---
Admission Date/Time: October 17, 2022 14:30 Indication: Resp Infection Weight in k.039 kg Adjusted body weight in K.396 kg [place] body weight in K.3 kg Obesity Dosing Indication % IBW: N/A Serum Creatinine - Last 168 Hours 10/17/22 10:41 Creatinine 0.77 Estimated CrCl and GFR - Last 168 Hours 10/17/22 10:41 Estim Creat Clear Calc 132.5 Estimated GFR > 60 Vancomycin Loading Dose: 1500 mg (22 mg/kg) Current Vancomycin Dosing Regimen: 1250 mg Q12H Date and Time for next Vancomycin Level to be drawn: 10/18 @ 2100 Pharmacist Comments on Vancomycin Plan: Patient received 1500 mg loading dose 10/17 @ 1137. Maintenance dose vanco 1250 mg Q12H is scheduled to start 10/17 @ 2300. Expected AUC 513 with a trough of 14.6. Level to be drawn prior to 4th dose Pharmacy to monitor renal function daily Madelaine Jacome PharmD Vancomycin dosing will take advantage of [employer] as a clinical decision support tool that uses Bayesian modeling to calculate individual patient's pharmacokinetic parameters and forecast the patient's drug concentration time course with the target goal AUC 24 range of 400 - 600 mg/L/hr.
[2022-10-17 15:05] VITALS: BP 127/91; PULSE 79; RESP 14; TEMP 37.2; O2SAT 96
--- NOTE | 2022-10-17 15:05 | PC.NURSE ---
all fluids and abx have been completed at this time, pt provided with fluids and food. Pt reports 8/10 pain at this time
[2022-10-17 15:18] LABS: ~Lactic Acid-LAB USE ONLY 0.8 mmol/L (0.5-2.0)
[2022-10-17 15:19] LABS: Amphetamine Screen Urine Not Detected (Not Detect); Barbiturates, Urine Not Detected (Not Detect); Benzodiazepines Screen Urine Not Detected (Not Detect); Cannabinoid Screen Urine Not Detected (Not Detect); Cocaine Screen Urine POSITIVE (Not Detect); Fentanyl, urine POSITIVE (Not Detect); Opiate Screen Urine POSITIVE (Not Detect); Phencyclidine Screen Urine Not Detected (Not Detect)
[2022-10-17 16:00] VITALS: BP 97/57; PULSE 82; RESP 16; TEMP 36.7; O2SAT 98
[2022-10-17] MEDS: Enoxaparin Sodium 40 MG/0.4 ML SYRINGE SUBCUT (17:22)
[2022-10-17] MEDS: cefEPime HCl 2 GM in 0.9 % Sodium Chloride 50 ML IV (17:22)
[2022-10-17] MEDS: 0.9 % Sodium Chloride Flush 3 ML SYRINGE IVFLUSH ×2 (17:23→23:29)
[2022-10-17] MEDS: LORazepam 0.5 MG TABLET PO ×2 (17:38→23:19)
--- NOTE | 2022-10-17 18:18 | PC.NURSE ---
Pt is alert and oriented x4.Pt admitted to 358 with a diagnosis of Abcess in the right lower lung lobe. Pt is on ABT treatment for it. Denies pain or discomfort but c/O aniety. PRN ativan given with good effect
[2022-10-17 20:00] VITALS: BP 108/64; PULSE 98; RESP 18; TEMP 36.8; O2SAT 100
[2022-10-17] MEDS: vancomycin HCL 1,250 MG in 0.9 % Sodium Chloride 250 ML 166.67 MG IV (23:25)
[2022-10-18] MEDS: cefEPime HCl 2 GM in 0.9 % Sodium Chloride 50 ML IV ×3 (00:59→17:09)
[2022-10-18] MEDS: guaiFENesin DM 100/10/5 ML 5 ML SYRUP PO ×2 (01:32→20:38)
[2022-10-18] MEDS: Acetaminophen 325 MG TABLET 650 MG PO ×2 (01:32→16:36)
[2022-10-18] MEDS: oxyCODONE HCl Immed Release 5 MG TABLET PO ×3 (01:32→20:34)
[2022-10-18 03:19] VITALS: BP 102/56; PULSE 90; RESP 14; TEMP 36.9; O2SAT 96
[2022-10-18 06:14] LABS: MANUAL DIFF FLAG NO
[2022-10-18 06:17] LABS: Basophils Percent Auto 0.2 % (0-2); Eosinophils Absolute Auto 0.1 X10*3/uL (0.0-0.4); Eosinophils Percent Auto 0.7 % (0-4); Hematocrit 26.3 % (42.0-52.0); Hemoglobin 8.3 g/dl (14.0-18.0); Imm Gran Abs Auto 0.21 X10*3/uL (0.00-0.03); Imm Gran Pct Auto 1.6 % (0.0-0.4); Lymphocytes Absolute Auto 1.7 X10*3/uL (1.2-4.9); Mean Corpuscular HGB Conc 31.6 g/dl (31.0-36.0); Mean Corpuscular Volume 82.4 fL (80.0-98.0); Mean Platelet Volume 8.6 fL (9.4-12.4); Monocytes Absolute Auto 0.9 X10*3/uL (0.1-1.2); Monocytes Percent Auto 6.4 % (2-11); Neutrophils Absolute Auto 10.4 x10*3/uL (2.0-8.3); Neutrophils Percent Auto 78.1 % (45-73); Platelet Count 448 X10*3/uL (160-400); Red Blood Count 3.19 X10*6/uL (4.60-5.80); Red Cell Distribution Width 14.5 % (11.0-16.0); White Blood Count 13.3 X10*3/uL (4.8-10.8)
[2022-10-18 06:21] LABS: INTERNATIONAL NORM RATIO 1.4 (0.9-1.1); Prothrombin Time 16.4 SEC (10.0-13.1)
[2022-10-18 06:34] LABS: Anion Gap 13 (12-20); Blood Urea Nitrogen 8 mg/dL (9-16); Calcium 7.5 mg/dL (8.4-10.2); Carbon Dioxide 26 mmol/L (22-29); Chloride 101 mmol/L (96-108); Creatinine Clr Calc Pharmacy 164.6; Estimated Glomerular Filt Rate > 60; Glucose Random 85 mg/dL (60-115); Potassium 4.1 mmol/L (3.3-5.1); Sodium 136 mmol/L (135-145)
--- NOTE | 2022-10-18 06:34 | MHC.PIE ---
late entry p; pt c/o pain 04/03 to chest/plural with cough. i; dr danielle notified; new order oxycodone now, robitussin prn e; will cont to monitor
[2022-10-18 07:18] VITALS: BP 111/65; PULSE 77; RESP 18; TEMP 36.1; O2SAT 97
[2022-10-18] MEDS: 0.9 % Sodium Chloride Flush 3 ML SYRINGE IVFLUSH ×2 (07:44→20:35)
[2022-10-18] MEDS: methADONE HCl 20 MG/2 ML ORAL.CONC 125 MG PO (07:45)
[2022-10-18] MEDS: LORazepam 0.5 MG TABLET PO ×2 (08:17→20:35)
--- NOTE | 2022-10-18 08:53 | PM.CNPUL ---
History of Present Illness History of Present Illness Consult date: 10/18/22 Chief complaint: lung abscess /DRAIN RIGHT SIDE Narrative: This is an inpatient pulmonary consultation. The patient is a 32-year-old male with history of IV drug abuse last use 1.5 months ago, and opioid use disorder on methadone presented to the ED earlier today for evaluation of right flank pain, shortness of breath, dry cough, pleuritic and positional chest pain, and fevers up to 100.6 ongoing for 2 weeks.? He is also reporting polyuria and dysuria as well as swelling of the fingers bilaterally.? On arrival, temperature 99.4 degrees, tachycardic to 106, no tachypnea or hypoxia.? Leukocytosis 16.4, normocytic anemia with H/H 9.3/28.2%.? Renal function normal.? Sodium 134, potassium 4.0, chloride 98, CO2 25.? Glucose 203.? Initial lactic acid 2.1.? CRP 19.93, ESR 98.? Urinalysis unremarkable.? HIV antibody nonreactive.? Hepatitis-C antibody reactive.? Negative for influenza, RSV, COVID-19.? CXR with large right lower lobe posterior segment and fluid level suggestive of liquified consolidation or abscess.? Follow-up CT chest showing large right lower lobe lung abscess with 2 adjacent loculated pleural collections as well as incidental findings of splenomegaly and possible hepatomegaly.? Patient treated empirically with vancomycin and Zosyn and given IV NS bolus of 33cc/kg. Patient be admitted for further other management of lung abscess. Still complaining of pleuritic chest pain. Blood cultures are negative. Review of Systems Review of Systems: General: No fevers, malaise, unintentional weight loss Cardiovascular: +pleuritic/positional chest pain. No palpitations, or leg edema Respiratory: +sob, +cough. No wheezing GI: No abdominal pain, nausea, vomiting, diarrhea, constipation, melena, hematochezia : No dysuria, hematuria, increased urinary frequency, decreased urinary output MSK: No myalgia. +right flank pain Neuro: No headaches, weakness, paresthesias Skin: No rashes or lesions PMFSH Past Medical History Medical History (Updated 10/17/22 @ 15:11 by JOSE Goode) Agoraphobia Anxiety Asthma Hepatitis C antibody test positive History of intravenous drug abuse Opioid use disorder Family History Family History (Updated 10/17/22 @ 14:49 by JOSE Adorno) Father Lung cancer Social History Social History (Updated 10/17/22 @ 14:49 by JOSE Adorno) Household Members: Spouse Housing: Apartment Do you presently have visiting nurse or other home services: No Alcohol intake: never Patient Tobacco Use Status: Current everyday Tobacco user Tobacco use type: Cigarette Cigarette Packs Per Day: 0.25 Cigarettes Per Day: 2 Years Smoked: 11 e-Cigarette/Vaping Use: Former Use Second Hand Smoke Exposure: No Substance Use Type: Heroin Advance Directives Date on File: 10/17/22 Meds Allergies Allergy/AdvReac Type Severity Reaction Status Date / Time codeine Allergy Hives Verified 10/17/22 09:45 Active Medications: Current Medications Acetaminophen (Acetaminophen 325 Mg Tablet) 650 mg PO Q6H PRN PRN Reason: Pain, Mild (Pain Scale 1-3) Last Admin: 10/18/22 01:32 Dose: 650 mg Docusate Sodium (Docusate Sodium 100 Mg Capsule) 100 mg PO BID PRN PRN Reason: Constipation Enoxaparin Sodium (Enoxaparin Sodium 40 Mg/0.4 Ml Syringe) 40 mg SUBCUT Q24H SHAYY Last Admin: 10/17/22 17:22 Dose: 40 mg Guaifenesin/Dextromethorphan (Guaifenesin Dm 100/10/5 Ml 5 Ml Syrup) 5 ml PO Q4H PRN PRN Reason: cough Last Admin: 10/18/22 01:32 Dose: 5 ml Cefepime HCl 2 gm/ Sodium (Chloride) 50 mls @ 100 mls/hr IV Q8H SHAYY Last Admin: 10/18/22 07:43 Dose: 100 mls/hr Vancomycin HCl 1,250 mg/ (Sodium Chloride) 250 mls @ 166.667 mls/hr IV Q12H SHAYY Last Infusion: 10/18/22 00:59 Dose: Infused Lorazepam (Lorazepam 0.5 Mg Tablet) 0.5 mg PO Q6H PRN PRN Reason: Anxiety Last Admin: 10/18/22 08:17 Dose: 0.5 mg Methadone HCl (Methadone Hcl 20 Mg/2 Ml Oral.Conc) 125 mg PO DAILY SHAYY Last Admin: 10/18/22 07:45 Dose: 125 mg Nicotine Polacrilex (Nicotine Polacrilex 2 Mg Gum) 2 mg BUCCAL Q2H PRN PRN Reason: Nicotine Cravings Ondansetron HCl (Ondansetron Hcl 4 Mg/2 Ml Vial) 4 mg IVPUSH Q8H PRN PRN Reason: Nausea and Vomiting Pharmacy Consult (Consult Rx Perform Med Rec) 1 each MISCELLANE ONCE PRN PRN Reason: Consult order Pharmacy Consult (Consult Rx Vancomycin Dosing) 1 each MISCELLANE DAILY PRN PRN Reason: Consult order Sodium Chloride (0.9 % Sodium Chloride Flush 3 Ml Syringe) 3 ml IVFLUSH QSHIFT [facility] Last Admin: 10/18/22 07:44 Dose: 3 ml Home Medications Medication Instructions Recorded Confirmed Last Taken Type albuterol sulfate 90 mcg/actuation 1 inh inhalation QID PRN Wheezing 10/17/22 10/17/22 Unknown History aerosol inhaler methadone 10 mg/5 mL oral solution 125 mg PO DAILY 10/17/22 10/17/22 10/17/22 History Physical Exam Vital Signs: Vital Signs: Last Vital Signs Temp 96.9 F 10/18/22 07:18 Pulse 77 10/18/22 07:18 Resp 18 10/18/22 07:18 BP 111/65 10/18/22 07:18 Pulse Ox 97 10/18/22 07:18 O2 Del Method 10/18/22 07:18 BMI result Body Mass Index 20.9 Const: General: tired appearing Nutritional Appearance: cachectic and underweight HEENT: Head: Yes atraumatic Eyes: General: appearance normal, both eyes and all related structures Neck: Neck: Yes supple Chest: Chest palpation & inspection: normal inspection of the chest Resp: Effort & Inspection: normal respiratory effort Auscultation: diminished lung sounds Cardio: Rate: regular rate Rhythm: regular rhythm Heart sounds: S1 normal heart sound present and S2 normal heart sound present GI: Auscultation: normal bowel sounds Extrem: General: Yes no clubbing, cyanosis or edema Results Laboratory Findings 10/18/22 05:18 10/18/22 05:18 ABG, PT/INR, D-dimer: PT/INR, D-dimer PT 16.4 SEC (10.0-13.1) H 10/18/22 05:18 INR 1.4 (0.9-1.1) H 10/18/22 05:18 Abnormal lab findings: Abnormal Labs 10/17/22 10/17/22 10/17/22 10:09 10:09 10:41 WBC 16.4 H RBC 3.52 L Hgb 9.3 L Hct 28.2 L MCH 26.4 L Plt Count 496 H MPV 8.5 L Immature Gran % (Auto) 1.0 H Neut % (Auto) 88.8 H Lymph % (Auto) 6.1 L Lymph # (Auto) 1.0 L Abs Immat Gran (auto) 0.16 H Absolute Neuts (auto) 14.6 H ESR PT INR Sodium BUN Random Glucose Lactic Acid Calcium Alkaline Phosphatase C-Reactive Protein Total Protein Albumin Ur Leukocyte Esterase Trace H Urine Opiates Screen POSITIVE H Urine Fentanyl Screen POSITIVE H Urine Cocaine Screen POSITIVE H Hepatitis C Ab (EIA) 10/17/22 10/17/22 10/17/22 10:41 10:41 10:41 WBC RBC Hgb Hct MCH Plt Count MPV Immature Gran % (Auto) Neut % (Auto) Lymph % (Auto) Lymph # (Auto) Abs Immat Gran (auto) Absolute Neuts (auto) ESR 98 H PT INR Sodium 134 L BUN Random Glucose 203 H Lactic Acid 2.1 H* Calcium 8.2 L Alkaline Phosphatase 155 H C-Reactive Protein 19.93 H Total Protein 5.6 L Albumin 2.4 L Ur Leukocyte Esterase Urine Opiates Screen Urine Fentanyl Screen Urine Cocaine Screen Hepatitis C Ab (EIA) 10/17/22 10/18/22 10/18/22 10:41 05:18 05:18 WBC 13.3 H RBC 3.19 L Hgb 8.3 L Hct 26.3 L MCH 26.0 L Plt Count 448 H MPV 8.6 L Immature Gran % (Auto) 1.6 H Neut % (Auto) 78.1 H Lymph % (Auto) 13.0 L Lymph # (Auto) Abs Immat Gran (auto) 0.21 H Absolute Neuts (auto) 10.4 H ESR PT INR Sodium BUN 8 L Random Glucose Lactic Acid Calcium 7.5 L D Alkaline Phosphatase C-Reactive Protein Total Protein Albumin Ur Leukocyte Esterase Urine Opiates Screen Urine Fentanyl Screen Urine Cocaine Screen Hepatitis C Ab (EIA) Reactive H 10/18/22 05:18 WBC RBC Hgb Hct MCH Plt Count MPV Immature Gran % (Auto) Neut % (Auto) Lymph % (Auto) Lymph # (Auto) Abs Immat Gran (auto) Absolute Neuts (auto) ESR PT 16.4 H INR 1.4 H Sodium BUN Random Glucose Lactic Acid Calcium Alkaline Phosphatase C-Reactive Protein Total Protein Albumin Ur Leukocyte Esterase Urine Opiates Screen Urine Fentanyl Screen Urine Cocaine Screen Hepatitis C Ab (EIA) Assessment and Plan (1) Abscess of lower lobe of right lung without pneumonia: Status: Acute (2) History of intravenous drug abuse: Status: Acute (3) Opioid use disorder: Status: Acute Plan Pigtail cathter placement to the right peripheral abscess collection. It appears to look like an abscess, although, a loculated empyema can also take that appearance. Needs fungal/bacterail fluid cultures continue broad-spectrum antibiotics to treat likely a polymicrobial process Time Spent With Patient Time: Total time managing care of this patient today ____ minutes. Procedures Date of Service Date of Service: 10/07/22
--- NOTE | 2022-10-18 09:03 | PC.NURSE ---
pt ate lucy toast ? local anesthesia
--- NOTE | 2022-10-18 09:48 | MHC.CM.PN ---
EMR REVIEWED, PT W/RIGHT LUNG ABSCESS AND PIGTAIL CATH PLACED, CM MET W/PT WHO REPORTS HE LIVES W/G.F, IS INDEPENDENT W/CARE, USES A NEBULIZER BUT NOT OFTEN FOR DME AND IS ON METHADONE MAINTENANCE, PT REPORTS MODERNA X2, DENIES HAVING SEEN A PCP FOR YEARS AND WAS INSTRUCTED TO CALL INSURANCE TO SEE IF HE WAS ASSIGNED ONE, PT IS AGREEABLE HOWEVER HE CONT'S TO NOD OFF INTERMITTENTLY THROUGHOUT ASSESSMENT AND REPORTS HE WAS JUST GIVEN HIS METHADONE AND ATIVAN. PT REPORTS HE WOULD LIKE TO COMPLETE A FORMAL HCP AND WOULD LIKE TO NAME HIS S.O. SHAGGY RICARDO [phone] HIS [facility] AND HER EXMIL HOLLY [phone] HOWEVER D/T PT CONTINUALLY FALLING ASLEEP AND UNABLE TO GIVE ME CORRECT LAST NAME OR SPELLING OF HOLLY SHEILA WILL REVISIT WHEN PT IS MORE ALERT AND ORIENTED. ANTIC D/C HOME NO SERVICES, IF PT IS IN NEED OF HALF-WAY IV ABX PT WOULD NEED TO GO TO SNF VS COME IN DAILY FOR IV ABX D/T RECENT IVDU 1.5MOS AGO.
--- NOTE | 2022-10-18 10:52 | HO.PM.IMPN ---
Subjective Subjective Date of Service: 10/18/22 Interval History: Remained hemodynamically stable overnight. No respiratory distress. Review of Systems Denies chest pain Denies shortness of breath Denies nausea vomiting diarrhea Denies fever chills Physical Exam Vital Signs: Vital Signs: Last Vital Signs Temp 96.9 F 10/18/22 07:18 Pulse 77 10/18/22 07:18 Resp 18 10/18/22 07:18 BP 111/65 10/18/22 07:18 Pulse Ox 97 10/18/22 07:18 O2 Del Method 10/18/22 07:18 BMI result Body Mass Index 20.9 Const: Other: Awake alert oriented x3 no acute distress Resp: Other: Diminished at right base; otherwise clear without rales rhonchi or wheezes Cardio: Other: No S4; positive S1-S2; no S3 murmurs rubs or gallops GI: Other: Soft nontender nondistended normoactive bowel sounds Extrem: Other: No edema bilaterally Objective Data Active Medications Acetaminophen (Acetaminophen 325 Mg Tablet) 650 mg PO Q6H PRN PRN Reason: Pain, Mild (Pain Scale 1-3) Last Admin: 10/18/22 01:32 Dose: 650 mg Documented By: ALONDRA Docusate Sodium (Docusate Sodium 100 Mg Capsule) 100 mg PO BID PRN PRN Reason: Constipation Enoxaparin Sodium (Enoxaparin Sodium 40 Mg/0.4 Ml Syringe) 40 mg SUBCUT Q24H [facility] Last Admin: 10/17/22 17:22 Dose: 40 mg Documented By: ELOISA Guaifenesin/Dextromethorphan (Guaifenesin Dm 100/10/5 Ml 5 Ml Syrup) 5 ml PO Q4H PRN PRN Reason: cough Last Admin: 10/18/22 01:32 Dose: 5 ml Documented By: ALONDRA Cefepime HCl 2 gm/ Sodium (Chloride) 50 mls @ 100 mls/hr IV Q8H [facility] Last Infusion: 10/18/22 09:58 Dose: 100 mls/hr Documented By: JEWELL Vancomycin HCl 1,250 mg/ (Sodium Chloride) 250 mls @ 166.667 mls/hr IV Q12H [facility] Last Infusion: 10/18/22 00:59 Dose: 0 mls/hr Documented By: ALONDRA Lorazepam (Lorazepam 0.5 Mg Tablet) 0.5 mg PO Q6H PRN PRN Reason: Anxiety Last Admin: 10/18/22 08:17 Dose: 0.5 mg Documented By: JEWELL Methadone HCl (Methadone Hcl 20 Mg/2 Ml Oral.Conc) 125 mg PO DAILY [facility] Last Admin: 10/18/22 07:45 Dose: 125 mg Documented By: JEWELL Nicotine Polacrilex (Nicotine Polacrilex 2 Mg Gum) 2 mg BUCCAL Q2H PRN PRN Reason: Nicotine Cravings Ondansetron HCl (Ondansetron Hcl 4 Mg/2 Ml Vial) 4 mg IVPUSH Q8H PRN PRN Reason: Nausea and Vomiting Pharmacy Consult (Consult Rx Perform Med Rec) 1 each MISCELLANE ONCE PRN PRN Reason: Consult order Pharmacy Consult (Consult Rx Vancomycin Dosing) 1 each MISCELLANE DAILY PRN PRN Reason: Consult order Sodium Chloride (0.9 % Sodium Chloride Flush 3 Ml Syringe) 3 ml IVFLUSH QSHIFT [facility] Last Admin: 10/18/22 07:44 Dose: 3 ml Documented By: JEWELL Labs 10/18/22 05:18 10/18/22 05:18 Labs: Laboratory Results - last 24 hr 10/17/22 10/17/22 10/17/22 10:09 10:09 10:41 MCV MCH MCHC RDW Plt Count MPV Immature Gran % (Auto) Neut % (Auto) Lymph % (Auto) [place] % (Auto) Eos % (Auto) Baso % (Auto) Lymph # (Auto) [place] # (Auto) Eos # (Auto) Baso # (Auto) Abs Immat Gran (auto) Absolute Neuts (auto) Absolute Nucleated RBC Nucleated RBC % (auto) ESR PT INR Anion Gap 15 Estim Creat Clear Calc 132.5 Estimated GFR > 60 Random Glucose 203 H Lactic Acid Lactic Acid F/U @ 2Hr Calcium 8.2 L Magnesium 1.9 Total Bilirubin 0.7 AST 29 ALT 17 Alkaline Phosphatase 155 H C-Reactive Protein 19.93 H Total Protein 5.6 L Albumin 2.4 L Urine Opiates Screen POSITIVE H Urine Fentanyl Screen POSITIVE H Ur Barbiturates Screen Not Detected Ur Phencyclidine Scrn Not Detected Ur Amphetamines Screen Not Detected U Benzodiazepines Scrn Not Detected Urine Cocaine Screen POSITIVE H U Marijuana (THC) Screen Not Detected Hep Bs Antigen Hep Bs Antibody Hep B Core Total Ab Hepatitis C Ab (EIA) HIV 1&2 Ab/P24 Ag 4thGn Influenza Type A (PCR) NEGATIVE Influenza Type B (PCR) NEGATIVE RSV RNA Qual (PCR) NEGATIVE SARS-CoV-2 RNA (RT-PCR) NEGATIVE 10/17/22 10/17/22 10/17/22 10:41 10:41 10:41 MCV MCH MCHC RDW Plt Count MPV Immature Gran % (Auto) Neut % (Auto) Lymph % (Auto) [place] % (Auto) Eos % (Auto) Baso % (Auto) Lymph # (Auto) [place] # (Auto) Eos # (Auto) Baso # (Auto) Abs Immat Gran (auto) Absolute Neuts (auto) Absolute Nucleated RBC Nucleated RBC % (auto) ESR 98 H PT INR Anion Gap Estim Creat Clear Calc Estimated GFR Random Glucose Lactic Acid 2.1 H* Lactic Acid F/U @ 2Hr Calcium Magnesium Total Bilirubin AST ALT Alkaline Phosphatase C-Reactive Protein Total Protein Albumin Urine Opiates Screen Urine Fentanyl Screen Ur Barbiturates Screen Ur Phencyclidine Scrn Ur Amphetamines Screen U Benzodiazepines Scrn Urine Cocaine Screen U Marijuana (THC) Screen Hep Bs Antigen Negative Hep Bs Antibody NONREACTIVE Hep B Core Total Ab Nonreactive Hepatitis C Ab (EIA) Reactive H HIV 1&2 Ab/P24 Ag 4thGn Nonreactive Influenza Type A (PCR) Influenza Type B (PCR) RSV RNA Qual (PCR) SARS-CoV-2 RNA (RT-PCR) 10/17/22 10/18/22 10/18/22 14:50 05:18 05:18 MCV 82.4 MCH 26.0 L MCHC 31.6 RDW 14.5 Plt Count 448 H MPV 8.6 L Immature Gran % (Auto) 1.6 H Neut % (Auto) 78.1 H Lymph % (Auto) 13.0 L [place] % (Auto) 6.4 Eos % (Auto) 0.7 Baso % (Auto) 0.2 Lymph # (Auto) 1.7 [place] # (Auto) 0.9 Eos # (Auto) 0.1 Baso # (Auto) 0.0 Abs Immat Gran (auto) 0.21 H Absolute Neuts (auto) 10.4 H Absolute Nucleated RBC 0.000 Nucleated RBC % (auto) 0.0 ESR PT INR Anion Gap 13 Estim Creat Clear Calc 164.6 Estimated GFR > 60 Random Glucose 85 Lactic Acid Lactic Acid F/U @ 2Hr 0.8 Calcium 7.5 L D Magnesium Total Bilirubin AST ALT Alkaline Phosphatase C-Reactive Protein Total Protein Albumin Urine Opiates Screen Urine Fentanyl Screen Ur Barbiturates Screen Ur Phencyclidine Scrn Ur Amphetamines Screen U Benzodiazepines Scrn Urine Cocaine Screen U Marijuana (THC) Screen Hep Bs Antigen Hep Bs Antibody Hep B Core Total Ab Hepatitis C Ab (EIA) HIV 1&2 Ab/P24 Ag 4thGn Influenza Type A (PCR) Influenza Type B (PCR) RSV RNA Qual (PCR) SARS-CoV-2 RNA (RT-PCR) 10/18/22 05:18 MCV MCH MCHC RDW Plt Count MPV Immature Gran % (Auto) Neut % (Auto) Lymph % (Auto) [place] % (Auto) Eos % (Auto) Baso % (Auto) Lymph # (Auto) [place] # (Auto) Eos # (Auto) Baso # (Auto) Abs Immat Gran (auto) Absolute Neuts (auto) Absolute Nucleated RBC Nucleated RBC % (auto) ESR PT 16.4 H INR 1.4 H Anion Gap Estim Creat Clear Calc Estimated GFR Random Glucose Lactic Acid Lactic Acid F/U @ 2Hr Calcium Magnesium Total Bilirubin AST ALT Alkaline Phosphatase C-Reactive Protein Total Protein Albumin Urine Opiates Screen Urine Fentanyl Screen Ur Barbiturates Screen Ur Phencyclidine Scrn Ur Amphetamines Screen U Benzodiazepines Scrn Urine Cocaine Screen U Marijuana (THC) Screen Hep Bs Antigen Hep Bs Antibody Hep B Core Total Ab Hepatitis C Ab (EIA) HIV 1&2 Ab/P24 Ag 4thGn Influenza Type A (PCR) Influenza Type B (PCR) RSV RNA Qual (PCR) SARS-CoV-2 RNA (RT-PCR) Assessment and Plan (1) Thoracic abscess: Status: Acute (2) Hepatitis C antibody test positive: Status: Acute (3) Opioid use disorder: Status: Acute Plan 32-year-old male with history of mild intermittent asthma, anxiety, agoraphobia, history of IV drug abuse last use 1.5 months ago, and opioid use disorder on methadone admitted for management of lung abscess in [facility]. 1.RLL abscess -IV cefepime and vanco -IR thoracentesis later this afternoon -NPO 2.Hepatitis C Ab positive -Viral Load pending -treatment as per forthcoming data 3.Opioid use Disorder with hx IVDA -continue methadone 4.Mild intermittent asthma-without acute exacerbation -albuterol p.r.n. Lovenox Full code Patient requires ongoing hospitalization to treat right lung abscess with IV antibiotics Time Spent With Patient Time: Total time managing care of this patient today ____ minutes. Quality Stroke Does the patient have a stroke diagnosis?: No VTE Prior VTE?: No VTE Risk Level:: Medical - moderate - high VTE Device Contraindication: Treatment Not Indicated VTE Drug Contraindication: N/A - Med Ordered
[2022-10-18] MEDS: vancomycin HCL 1,250 MG in 0.9 % Sodium Chloride 250 ML 166.67 MG IV ×2 (12:03→22:27)
--- NOTE | 2022-10-18 14:19 | PC.NURSE ---
re-clarified npo status of pt. per nurse Betty Newton. pt had 2 bites of toast at 8:30 am today, cereal at 8:45 a.m., nothing by mouth since. temp 102.7 temporal
[2022-10-18 16:00] VITALS: BP 117/67; PULSE 112; RESP 18; TEMP 38.2; O2SAT 98
[2022-10-18 16:25] VITALS: BP 112/69; PULSE 106; RESP 20; TEMP 38.3; O2SAT 95
[2022-10-18 16:40] VITALS: PULSE 108; RESP 19; O2SAT 95
[2022-10-18 19:50] VITALS: BP 121/67; PULSE 70; RESP 15; TEMP 36.7; O2SAT 98
[2022-10-18 21:16] LABS: Vancomycin Trough 14.2 mcg/mL (10.0-20.0)
[2022-10-19] MEDS: cefEPime HCl 2 GM in 0.9 % Sodium Chloride 50 ML IV ×3 (00:27→16:30)
[2022-10-19 03:50] VITALS: BP 100/62; PULSE 83; RESP 14; TEMP 36.9; O2SAT 97
[2022-10-19 06:16] LABS: MANUAL DIFF FLAG NO
[2022-10-19 06:24] LABS: Basophils Percent Auto 0.3 % (0-2); Eosinophils Absolute Auto 0.2 X10*3/uL (0.0-0.4); Eosinophils Percent Auto 1.3 % (0-4); Hematocrit 25.1 % (42.0-52.0); Imm Gran Abs Auto 0.28 X10*3/uL (0.00-0.03); Imm Gran Pct Auto 2.1 % (0.0-0.4); Lymphocytes Percent Auto 14.7 % (20-40); Mean Corpuscular HGB Conc 31.9 g/dl (31.0-36.0); Mean Corpuscular Hemoglobin 25.8 pg (27.0-33.0); Mean Platelet Volume 8.5 fL (9.4-12.4); Monocytes Absolute Auto 0.8 X10*3/uL (0.1-1.2); Neutrophils Absolute Auto 10.3 x10*3/uL (2.0-8.3); Neutrophils Percent Auto 75.6 % (45-73); Platelet Count 439 X10*3/uL (160-400); Red Cell Distribution Width 14.5 % (11.0-16.0); White Blood Count 13.6 X10*3/uL (4.8-10.8)
[2022-10-19 06:51] LABS: Alanine Aminotransferase 15 U/L (0-40); Albumin Level 1.9 g/dL (3.5-5.0); Alkaline Phosphatase 115 U/L (39-117); Anion Gap 13 (12-20); Aspartate Amino Transferase 31 U/L (5-37); Bilirubin Total 0.3 mg/dL (0.0-1.0); Blood Urea Nitrogen 6 mg/dL (9-16); Calcium 7.6 mg/dL (8.4-10.2); Carbon Dioxide 26 mmol/L (22-29); Chloride 102 mmol/L (96-108); Estimated Glomerular Filt Rate > 60; Glucose Fasting 91 mg/dL (60-99); Potassium 4.1 mmol/L (3.3-5.1); Sodium 137 mmol/L (135-145); Total Protein 4.8 g/dL (6.5-8.0)
[2022-10-19 07:45] VITALS: BP 101/61; PULSE 85; RESP 15; TEMP 37.4; O2SAT 92
[2022-10-19] MEDS: methADONE HCl 20 MG/2 ML ORAL.CONC 125 MG PO (08:30)
[2022-10-19] MEDS: 0.9 % Sodium Chloride Flush 3 ML SYRINGE IVFLUSH ×2 (08:39→16:30)
[2022-10-19] MEDS: guaiFENesin DM 100/10/5 ML 5 ML SYRUP PO ×3 (08:47→19:36)
--- NOTE | 2022-10-19 10:26 | P.PNPL_ITS ---
Subjective Subjective Date of Service: 10/19/22 Interval history: The patient was seen on exam. Patient is status post CT-guided drain for into the lung abscess. Purulent secretions are draining. Culture pending although the Gram stain positive for 3+ Gram-positive cocci in 3+ Gram-negative rods. The patient is currently on broad-spectrum antibiotics with cefepime and vancomycin. Still having pleuritic discomfort. Thoracic surgery was consulted. Objective Data Labs 10/19/22 05:33 10/19/22 05:33 Labs: Laboratory Results - last 24 hr 10/17/22 10/18/22 10/19/22 10:41 20:53 05:33 WBC RBC Hgb Hct MCV MCH MCHC RDW Plt Count MPV Immature Gran % (Auto) Neut % (Auto) Lymph % (Auto) [place] % (Auto) Eos % (Auto) Baso % (Auto) Lymph # (Auto) [place] # (Auto) Eos # (Auto) Baso # (Auto) Abs Immat Gran (auto) Absolute Neuts (auto) Absolute Nucleated RBC Nucleated RBC % (auto) Sodium 137 Potassium 4.1 Chloride 102 Carbon Dioxide 26 Anion Gap 13 BUN 6 L Creatinine 0.60 Estim Creat Clear Calc 170.0 Estimated GFR > 60 Fasting Glucose 91 Calcium 7.6 L Total Bilirubin 0.3 AST 31 ALT 15 Alkaline Phosphatase 115 Total Protein 4.8 L Albumin 1.9 L Vancomycin Trough 14.2 Hepatitis A IgM Ab Nonreactive 10/19/22 05:33 WBC 13.6 H RBC 3.10 L Hgb 8.0 L Hct 25.1 L MCV 81.0 MCH 25.8 L MCHC 31.9 RDW 14.5 Plt Count 439 H MPV 8.5 L Immature Gran % (Auto) 2.1 H Neut % (Auto) 75.6 H Lymph % (Auto) 14.7 L [place] % (Auto) 6.0 Eos % (Auto) 1.3 Baso % (Auto) 0.3 Lymph # (Auto) 2.0 [place] # (Auto) 0.8 Eos # (Auto) 0.2 Baso # (Auto) 0.0 Abs Immat Gran (auto) 0.28 H Absolute Neuts (auto) 10.3 H Absolute Nucleated RBC 0.000 Nucleated RBC % (auto) 0.0 Sodium Potassium Chloride Carbon Dioxide Anion Gap BUN Creatinine Estim Creat Clear Calc Estimated GFR Fasting Glucose Calcium Total Bilirubin AST ALT Alkaline Phosphatase Total Protein Albumin Vancomycin Trough Hepatitis A IgM Ab Microbiology Microbiology Results: Microbiology 10/18/22 16:00 Abscess Pulmonary Gram Stain - Final 10/18/22 16:00 Abscess Pulmonary Routine Culture - Preliminary No growth to date. 10/18/22 16:00 Abscess Pulmonary Anaerobic Culture - Preliminary Culture in progress. 10/17/22 10:51 Blood - Venous Blood Culture - Preliminary No growth after 24 hours. 10/17/22 10:41 Blood - Venous Blood Culture - Preliminary No growth after 24 hours. Review of Systems Review of Systems General: No fevers, malaise, unintentional weight loss Cardiovascular: +pleuritic/positional chest pain. No palpitations, or leg edema Respiratory: +sob, +cough. No wheezing GI: No abdominal pain, nausea, vomiting, diarrhea, constipation, melena, hematochezia : No dysuria, hematuria, increased urinary frequency, decreased urinary output MSK: No myalgia. +right flank pain Neuro: No headaches, weakness, paresthesias Skin: No rashes or lesions Physical Exam Vital Signs: Vital Signs: Last Vital Signs Temp 99.4 F 10/19/22 07:45 Pulse 85 10/19/22 07:45 Resp 15 10/19/22 07:45 BP 101/61 10/19/22 07:45 Pulse Ox 92 10/19/22 07:45 O2 Del Method 10/19/22 07:45 BMI result Body Mass Index 20.9 Const: Other: Awake alert oriented x3 no acute distress Resp: Other: Diminished at right base; otherwise clear without rales rhonchi or wheezes Cardio: Other: No S4; positive S1-S2; no S3 murmurs rubs or gallops GI: Other: Soft nontender nondistended normoactive bowel sounds Extrem: Other: No edema bilaterally Procedures Date of Service Date of Service: 10/14/22 Assessment and Plan Assessment and plan (1) Thoracic abscess: Status: Acute (2) Abscess of lower lobe of right lung without pneumonia: Status: Acute Plan continue broad-spectrum antibiotics Continue pigtail drainage. Awaiting cultures Thoracic surgery to evaluate. Time Spent With Patient Time: Total time managing care of this patient today ____ minutes. Progress Note: Quality Stroke Does the patient have a stroke diagnosis?: No
[2022-10-19] MEDS: oxyCODONE HCl Immed Release 5 MG TABLET PO ×3 (11:05→20:59)
[2022-10-19] MEDS: vancomycin HCL 1,250 MG in 0.9 % Sodium Chloride 250 ML 166.66 MG IV ×2 (11:06→22:49)
--- NOTE | 2022-10-19 11:49 | PM.CNGS ---
History of Present Illness Consult details Consult date: 10/19/22 Reason for consult: other (right lung abscess) Narrative: Mr. Nesbitt is a 32 year old male who presented to the hospital with complaints of right flank pain, shortness of breath, dry cough, pleuritic right chest pain, and fevers up to 100.6 for the last 2 weeks. Patient does have a history of IVDA and did admit to me that he has used IV heroin last about 1 week ago and a couple more times before that recently. Workup showed a leukocytosis of 16, H/H 9.3/28.2, +hep C antibody, and negative HIV antibody. CXR showed a large right lower lobe consolidation vs. abscess, therefore CT chest was done which confirmed the presented of a large right lower lobe lung abscess with 2 adjacent loculated pleural collections. Patient was treated with broad spectrum antibiotics and IR placed a pigtail drain into the abscess on 10/18/2022. Patient has had malodorous, purulent drainage from the tube and gram stain of the abscess fluid shows gram positive cocci and gram negative rods. Thoracic Surgery has been consulted for this reason. Review of Systems Constitutional: Constitutional: Denies body ache(s), Denies chills, Denies fatigue, Reports fever(s), Reports night sweats, Denies weakness and Denies weight loss ENT: Denies dysphagia, Denies hoarseness, Denies odynophagia and Denies throat swelling Cardiovascular: Cardiovascular: Denies Abdominal Distension, Denies chest pain, Denies lightheadedness, Denies palpitations, Denies dyspnea and Reports dyspnea on exertion Respiratory: Respiratory: Reports cough, Denies hemoptysis, Reports pain on inspiration, Reports pain with cough, Denies dyspnea, Reports dyspnea on exertion and Denies wheezing Gastrointestinal: Gastrointestinal: Denies abdominal pain, Reports constipation (chronic due to his methadone, last BM a long time ago ), Denies dysphagia, Denies diarrhea, Denies nausea, Denies odynophagia and Denies vomiting Musculoskeletal: Musculoskeletal: Denies back pain, Denies numbness and Denies tingling Integumentary/Breasts: Skin/Breast: Denies rash Neurologic: Denies numbness, Denies tingling and Denies weakness Psychiatric: Psychiatric: Reports anxiety Endocrine: Endocrine: Denies fatigue and Denies palpitations Allergic/Immunologic: Allergic/Immunologic: Denies throat swelling and Denies wheezing [facility] Past Medical History Medical History Agoraphobia Anxiety Asthma Hepatitis C antibody test positive History of intravenous drug abuse Opioid use disorder Family History Family History Father Lung cancer Social History Social History Household Members: Spouse Housing: Apartment Do you presently have visiting nurse or other home services: No Alcohol intake: never Patient Tobacco Use Status: Current everyday Tobacco user Tobacco use type: Cigarette Cigarette Packs Per Day: 0.25 Cigarettes Per Day: 2 Years Smoked: 11 e-Cigarette/Vaping Use: Former Use Second Hand Smoke Exposure: No Substance Use Type: Heroin Advance Directives Date on File: 10/17/22 service: No Current occupational status: unemployed Meds Allergies Allergy/AdvReac Type Severity Reaction Status Date / Time codeine Allergy Hives Verified 10/17/22 09:45 Active Medications: Current Medications Acetaminophen (Acetaminophen 325 Mg Tablet) 650 mg PO Q6H PRN PRN Reason: Pain, Mild (Pain Scale 1-3) Last Admin: 10/18/22 16:36 Dose: 650 mg Docusate Sodium (Docusate Sodium 100 Mg Capsule) 100 mg PO BID PRN PRN Reason: Constipation Enoxaparin Sodium (Enoxaparin Sodium 40 Mg/0.4 Ml Syringe) 40 mg SUBCUT Q24H [facility] Last Admin: 10/18/22 15:13 Dose: Not Given Guaifenesin/Dextromethorphan (Guaifenesin Dm 100/10/5 Ml 5 Ml Syrup) 5 ml PO Q4H PRN PRN Reason: cough Last Admin: 10/19/22 08:47 Dose: 5 ml Cefepime HCl 2 gm/ Sodium (Chloride) 50 mls @ 100 mls/hr IV Q8H [facility] Last Infusion: 10/19/22 09:48 Dose: Infused Vancomycin HCl 1,250 mg/ (Sodium Chloride) 250 mls @ 166.667 mls/hr IV Q12H [facility] Last Admin: 10/19/22 11:06 Dose: 166.66 mls/hr Lorazepam (Lorazepam 0.5 Mg Tablet) 0.5 mg PO Q6H PRN PRN Reason: Anxiety Last Admin: 10/18/22 20:35 Dose: 0.5 mg Methadone HCl (Methadone Hcl 20 Mg/2 Ml Oral.Conc) 125 mg PO DAILY [facility] Last Admin: 10/19/22 08:30 Dose: 125 mg Nicotine Polacrilex (Nicotine Polacrilex 2 Mg Gum) 2 mg BUCCAL Q2H PRN PRN Reason: Nicotine Cravings Ondansetron HCl (Ondansetron Hcl 4 Mg/2 Ml Vial) 4 mg IVPUSH Q8H PRN PRN Reason: Nausea and Vomiting Oxycodone HCl (Oxycodone Hcl Immed Release 5 Mg Tablet) 5 mg PO Q4H PRN PRN Reason: Pain, Severe (Pain Scale 7-10) Last Admin: 10/19/22 11:05 Dose: 5 mg Pharmacy Consult (Consult Rx Perform Med Rec) 1 each MISCELLANE ONCE PRN PRN Reason: Consult order Pharmacy Consult (Consult Rx Vancomycin Dosing) 1 each MISCELLANE DAILY PRN PRN Reason: Consult order Sodium Chloride (0.9 % Sodium Chloride Flush 3 Ml Syringe) 3 ml IVFLUSH QSSDFT [facility] Last Admin: 10/19/22 08:39 Dose: 3 ml Home Medications Medication Instructions Recorded Confirmed Last Taken Type albuterol sulfate 90 mcg/actuation 1 inh inhalation QID PRN Wheezing 10/17/22 10/17/22 Unknown History aerosol inhaler methadone 10 mg/5 mL oral solution 125 mg PO DAILY 10/17/22 10/17/22 10/17/22 History Physical Exam Vital Signs: Vital Signs: Last Vital Signs Temp 99.4 F 10/19/22 07:45 Pulse 85 10/19/22 07:45 Resp 15 10/19/22 07:45 BP 101/61 10/19/22 07:45 Pulse Ox 92 10/19/22 07:45 O2 Del Method 10/19/22 07:45 BMI result Body Mass Index 20.9 General: No acute distress, resting comfortably in bed, well developed Head: Normocephalic, atraumatic, symmetric Eyes: Sclera anicteric, eyelids without edema or erythema, +EOMS intact ENT: Oral mucosa and tongue are moist without lesions or exudates Neck: Soft, supple, symmetric, trachea midline, no crepitus Cardiovascular: Regular rate and rhythm, no murmur/rubs/gallops, BUE and BLE without edema, no calf tenderness bilaterally Respiratory: Lungs CTA B, breathing nonlabored, speaking in full sentences, on room air. No use of accessory muscles. Right chest drain x 1 to BENJIE bulb, purulent drainage, malodorous. No crepitus. Gastrointestinal: Soft, non-tender, non-distended, +normoactive bowel sounds. Skin: Warm and dry throughout, no rashes Lymphatic: no cervical, supraclavicular, infraclavicular lymphadenopathy noted Neurological: Alert and oriented x 3, no focal neurological deficit noted Psychiatric: No agitation, appropriate affect Results Labs 10/19/22 05:33 10/19/22 05:33 Labs: Abnormal lab results 10/19/22 10/19/22 Range/Units 05:33 05:33 WBC 13.6 H (4.8-10.8) X10*3/uL RBC 3.10 L (4.60-5.80) X10*6/uL Hgb 8.0 L (14.0-18.0) g/dl Hct 25.1 L (42.0-52.0) % MCH 25.8 L (27.0-33.0) pg Plt Count 439 H (160-400) X10*3/uL MPV 8.5 L (9.4-12.4) fL Immature Gran % (Auto) 2.1 H (0.0-0.4) % Neut % (Auto) 75.6 H (45-73) % Lymph % (Auto) 14.7 L (20-40) % Abs Immat Gran (auto) 0.28 H (0.00-0.03) X10*3/uL Absolute Neuts (auto) 10.3 H (2.0-8.3) x10*3/uL BUN 6 L (9-16) mg/dL Calcium 7.6 L (8.4-10.2) mg/dL Total Protein 4.8 L (6.5-8.0) g/dL Albumin 1.9 L (3.5-5.0) g/dL Short CBC 10/19/22 Range/Units 05:33 WBC 13.6 H (4.8-10.8) X10*3/uL Hgb 8.0 L (14.0-18.0) g/dl Hct 25.1 L (42.0-52.0) % Plt Count 439 H (160-400) X10*3/uL BMP 10/19/22 05:33 Sodium 137 Potassium 4.1 Chloride 102 Carbon Dioxide 26 BUN 6 L Creatinine 0.60 Calcium 7.6 L Liver Function 10/19/22 Range/Units 05:33 Total Bilirubin 0.3 (0.0-1.0) mg/dL AST 31 (5-37) U/L ALT 15 (0-40) U/L Alkaline Phosphatase 115 (39-117) U/L Albumin 1.9 L (3.5-5.0) g/dL Urine 10/17/22 Range/Units 10:09 Urine Color Dark Yellow Urine Appearance Cloudy Urine pH 5.5 (5.0-9.0) Ur Specific [place] 1.025 (1.005-1.025) Urine Protein Trace (Neg-Trace) mg/dL Urine Glucose (UA) Negative (Negative) mg/dL All other labs normal. CT Scan Report Signed Patient: Koby Madrigal MR#: [id number] : 1990 Acct:[id number] Ordering Physician: Nancy Noel Date of Service: 10/17/22 Procedure(s): CT chest w IV con Accession Number(s): [id number] cc: Nancy Noel~ EXAMINATION: CT CHEST WITH CONTRAST CLINICAL INFORMATION: Question of lung abscess on chest radiograph? COMPARISON: Chest radiograph earlier today? TECHNIQUE: Multidetector volumetric CT imaging of the chest was obtained after the administration of 65 mL of Omnipaque 350 intravenous contrast without immediate adverse reactions. Axial MIP volume rendering provided. Sagittal and coronal reformatted images were obtained. This CT examination was performed using dose optimization techniques as appropriate, variously including the following: *Automated exposure control *Adjustment of mA and/or kV according to patient size (this includes techniques or standardized protocols for targeted exams where dose is matched to indication/reason for exam; i.e. extremities or head) *Use of iterative reconstruction technique DLP: 220 mGy-cm FINDINGS: LUNGS AND PLEURA: At the right lung base in the right lower lobe, there is a large complex collection with fluid and air measuring 14.2 x 9.9 10.0 cm consistent with a large lung abscess. There are 2 adjacent loculated pleural collections measuring 1.7 x 3.6 x 3.1 cm just lateral to the abscess (4:315, 6:88) as well as a collection medially abutting the mediastinum measuring 6.5 x 1.6 x 4.1 cm (4:356, 5:55). There is a small amount of loculated fluid present in the major fissure. Incidental note made of a tiny 2 mm nodule in the inferior right upper lobe adjacent to the minor fissure (4:220). Left lung appears normal. MEDIASTINUM: The mediastinum is normal.? PLEURA: There is no pleural effusion. No pleural mass or thickening.? AXILLA: No lymphadenopathy.? UPPER ABDOMEN: The spleen is enlarged measuring at least 17 cm in greatest length. Hepatomegaly may be present as well the entire liver is not included on this chest CT. OSSEOUS STRUCTURES: Unremarkable.? CT/CT chest w IV con IMPRESSION: 1.? Large right lower lobe lung abscess with 2 adjacent loculated pleural collections as described above. 2.? Incidental note made of splenomegaly and possible hepatomegaly. ? Fleischner guidelines were followed. Assessment and Plan (1) Abscess of lower lobe of right lung without pneumonia: Status: Acute Mr. Madrigal is a 32 year old male with IVDA found to have a large right lower lung abscess. s/p IR drain on 10/18/22 Continue with drainage via right chest drain. BENJIE should maintain bulb suction at all times. Monitor outputs. Speciation from cultures pending. Blood cultures negative so far. Pulmonology following - ?bronchoscopy to drain the abscess endobronchially also ID consult pending. Will need repeat imaging at some point in the next few days - will re-evaluate daily. We will manage the right chest drain. Thank you for the consultation. Case discussed with Dr. Mccann. Time Spent With Patient Time: Total time managing care of this patient today ____ minutes. Procedures Date of Service Date of Service: 10/19/22
--- NOTE | 2022-10-19 12:49 | P.CNID_ITS ---
History of Present Illness Data of Consult Service Date: 10/19/22 Requesting physician: Chalo Arreola Primary Care Provider: None Physician HPI Reason for consult: lung abscess He presents with cough,some shortness of breath for last three days. He uses IV drugs. He has no fever or chills. He was found to have multiloculated lung abscesses. He had IR drainage of area. He has cultures pending. He is HIV negative and Hepatitis C positive with viral load pending. Review of Systems Review of Systems: Yes all other systems are reviewed and are negative PMF Past Medical History Medical History Agoraphobia Anxiety Asthma Hepatitis C antibody test positive History of intravenous drug abuse Opioid use disorder Family History Family History Father Lung cancer Family history: reviewed and not pertinent Social History Social History Household Members: Spouse Housing: Apartment Do you presently have visiting nurse or other home services: No Alcohol intake: never Patient Tobacco Use Status: Current everyday Tobacco user Tobacco use type: Cigarette Cigarette Packs Per Day: 0.25 Cigarettes Per Day: 2 Years Smoked: 11 e-Cigarette/Vaping Use: Former Use Second Hand Smoke Exposure: No Substance Use Type: Heroin Advance Directives Date on File: 10/17/22 service: No Current occupational status: unemployed Meds Allergies Allergy/AdvReac Type Severity Reaction Status Date / Time codeine Allergy Hives Verified 10/17/22 09:45 Active Medications: Current Medications Acetaminophen (Acetaminophen 325 Mg Tablet) 650 mg PO Q6H PRN PRN Reason: Pain, Mild (Pain Scale 1-3) Last Admin: 10/18/22 16:36 Dose: 650 mg Docusate Sodium (Docusate Sodium 100 Mg Capsule) 100 mg PO BID PRN PRN Reason: Constipation Enoxaparin Sodium (Enoxaparin Sodium 40 Mg/0.4 Ml Syringe) 40 mg SUBCUT Q24H [facility] Last Admin: 10/18/22 15:13 Dose: Not Given Guaifenesin/Dextromethorphan (Guaifenesin Dm 100/10/5 Ml 5 Ml Syrup) 5 ml PO Q4H PRN PRN Reason: cough Last Admin: 10/19/22 08:47 Dose: 5 ml Cefepime HCl 2 gm/ Sodium (Chloride) 50 mls @ 100 mls/hr IV Q8H [facility] Last Infusion: 10/19/22 09:48 Dose: Infused Vancomycin HCl 1,250 mg/ (Sodium Chloride) 250 mls @ 166.667 mls/hr IV Q12H [facility] Last Admin: 10/19/22 11:06 Dose: 166.66 mls/hr Lorazepam (Lorazepam 0.5 Mg Tablet) 0.5 mg PO Q6H PRN PRN Reason: Anxiety Last Admin: 10/18/22 20:35 Dose: 0.5 mg Methadone HCl (Methadone Hcl 20 Mg/2 Ml Oral.Conc) 125 mg PO DAILY [facility] Last Admin: 10/19/22 08:30 Dose: 125 mg Nicotine Polacrilex (Nicotine Polacrilex 2 Mg Gum) 2 mg BUCCAL Q2H PRN PRN Reason: Nicotine Cravings Ondansetron HCl (Ondansetron Hcl 4 Mg/2 Ml Vial) 4 mg IVPUSH Q8H PRN PRN Reason: Nausea and Vomiting Oxycodone HCl (Oxycodone Hcl Immed Release 5 Mg Tablet) 5 mg PO Q4H PRN PRN Reason: Pain, Severe (Pain Scale 7-10) Last Admin: 10/19/22 11:05 Dose: 5 mg Pharmacy Consult (Consult Rx Perform Med Rec) 1 each MISCELLANE ONCE PRN PRN Reason: Consult order Pharmacy Consult (Consult Rx Vancomycin Dosing) 1 each MISCELLANE DAILY PRN PRN Reason: Consult order Sodium Chloride (0.9 % Sodium Chloride Flush 3 Ml Syringe) 3 ml IVFLUSH QSHIFT [facility] Last Admin: 10/19/22 08:39 Dose: 3 ml Home Medications Medication Instructions Recorded Confirmed Last Taken Type albuterol sulfate 90 mcg/actuation 1 inh inhalation QID PRN Wheezing 10/17/22 10/17/22 Unknown History aerosol inhaler methadone 10 mg/5 mL oral solution 125 mg PO DAILY 10/17/22 10/17/22 10/17/22 History Physical Exam Vital Signs: Vital Signs: Last Vital Signs Temp 99.4 F 10/19/22 07:45 Pulse 85 10/19/22 07:45 Resp 15 10/19/22 07:45 BP 101/61 01/25/23 07:45 Pulse Ox 92 10/19/22 07:45 O2 Del Method 10/19/22 07:45 BMI result Body Mass Index 20.9 Const: General: ill appearing Nutritional Appearance: cachectic HEENT: Other: poor dentition Head: Yes normal to inspection Face and sinus: Yes normal facial exam and Yes other Mouth: Normal oral and palatal mucosa present and other (poor dentition) Teeth and gingiva: dentition normal Eyes: General: appearance normal, both eyes and all related structures Pupils: Equal, round and reactive pupils present Resp: Effort & Inspection: normal respiratory effort Cardio: Rate: regular rate Rhythm: regular rhythm GI: Palpation (GI): Soft to palpation and nontender : General: Yes CVA tenderness Back/Spine/Pelvis: Other: drain with purulent material Back: CVA tenderness Skin: General skin exam: no rashes or lesions noted Neuro: General: moves all extremities Cranial nerves: Yes Equal, round and reactive pupils present Extrem: General: Yes normal to inspection Psych: Appearance: grossly normal Results Labs 10/19/22 05:33 10/19/22 05:33 Labs: Short CBC 10/19/22 Range/Units 05:33 WBC 13.6 H (4.8-10.8) X10*3/uL Hgb 8.0 L (14.0-18.0) g/dl Hct 25.1 L (42.0-52.0) % Plt Count 439 H (160-400) X10*3/uL BMP 10/19/22 05:33 Sodium 137 Potassium 4.1 Chloride 102 Carbon Dioxide 26 BUN 6 L Creatinine 0.60 Calcium 7.6 L Liver Function 10/19/22 Range/Units 05:33 Total Bilirubin 0.3 (0.0-1.0) mg/dL AST 31 (5-37) U/L ALT 15 (0-40) U/L Alkaline Phosphatase 115 (39-117) U/L Albumin 1.9 L (3.5-5.0) g/dL Microbiology Microbiology Results: Microbiology 10/17/22 10:41 Blood - Venous Blood Culture - Preliminary No growth after 48 hours. 10/18/22 16:00 Abscess Pulmonary Gram Stain - Final 10/18/22 16:00 Abscess Pulmonary Routine Culture - Preliminary No growth to date. 10/18/22 16:00 Abscess Pulmonary Anaerobic Culture - Preliminary Culture in progress. 10/17/22 10:51 Blood - Venous Blood Culture - Preliminary No growth after 24 hours. Assessment and Plan (1) Thoracic abscess: Status: Acute He has (2) Abscess of lower lobe of right lung without pneumonia: Status: Acute He has probable multiple organisms including gram positive,gram negative and anerobes He has unremarkable cultures so far. He has poor dentition probably contributing to this (3) Hepatitis C antibody test positive: Status: Acute (4) History of intravenous drug abuse: Status: Acute Hepatitsi C viral load pending Plan Would continue Cefepime and Vancomycin and add flagyl for possible anerobic coverage Duration to be determined but probably three weeks or more IV treatment likely Thoracic to see evaluate any further treatment Check Hepatitis C viral load Time Spent With Patient Time: Total time managing care of this patient today ____ minutes.
[2022-10-19] MEDS: Enoxaparin Sodium 40 MG/0.4 ML SYRINGE SUBCUT (14:03)
[2022-10-19] MEDS: metroNIDAZOLE/NS 500 MG/100 ML PIGGYBACK 100 MG IV (14:04)
[2022-10-19] MEDS: LORazepam 0.5 MG TABLET PO ×2 (14:15→19:36)
--- NOTE | 2022-10-19 14:25 | P.PNIM_ITS ---
Subjective Subjective Date of Service: 10/19/22 Interval History: No acute issues overnight. Tolerated chest tube drainage without issue Review of Systems Denies chest pain Denies shortness of breath Denies nausea vomiting diarrhea Denies fever chills Physical Exam Vital Signs: Vital Signs: Last Vital Signs Temp 99.4 F 10/19/22 07:45 Pulse 85 10/19/22 07:45 Resp 15 10/19/22 07:45 BP 101/61 10/19/22 07:45 Pulse Ox 92 10/19/22 07:45 O2 Del Method 10/19/22 07:45 BMI result Body Mass Index 20.9 Const: Other: Awake alert oriented x3 no acute distress Resp: Other: Diminished at right base; otherwise clear without rales rhonchi or wheezes Cardio: Other: No S4; positive S1-S2; no S3 murmurs rubs or gallops GI: Other: Soft nontender nondistended normoactive bowel sounds Extrem: Other: No edema bilaterally Objective Data Active Medications Acetaminophen (Acetaminophen 325 Mg Tablet) 650 mg PO Q6H PRN PRN Reason: Pain, Mild (Pain Scale 1-3) Last Admin: 10/18/22 16:36 Dose: 650 mg Documented By: CHER Docusate Sodium (Docusate Sodium 100 Mg Capsule) 100 mg PO BID PRN PRN Reason: Constipation Enoxaparin Sodium (Enoxaparin Sodium 40 Mg/0.4 Ml Syringe) 40 mg SUBCUT Q24H [facility] Last Admin: 10/19/22 14:03 Dose: 40 mg Documented By: JEWELL Guaifenesin/Dextromethorphan (Guaifenesin Dm 100/10/5 Ml 5 Ml Syrup) 5 ml PO Q4H PRN PRN Reason: cough Last Admin: 10/19/22 14:15 Dose: 5 ml Documented By: JEWELL Cefepime HCl 2 gm/ Sodium (Chloride) 50 mls @ 100 mls/hr IV Q8H [facility] Last Infusion: 10/19/22 09:48 Dose: 100 mls/hr Documented By: JEWELL Vancomycin HCl 1,250 mg/ (Sodium Chloride) 250 mls @ 166.667 mls/hr IV Q12H [facility] Last Infusion: 10/19/22 14:17 Dose: 166.66 mls/hr Documented By: JEWELL Metronidazole (Flagyl) 500 mg in 100 mls @ 100 mls/hr IV Q12H [facility] Last Admin: 10/19/22 14:04 Dose: 100 mls/hr Documented By: JEWELL Lorazepam (Lorazepam 0.5 Mg Tablet) 0.5 mg PO Q6H PRN PRN Reason: Anxiety Last Admin: 10/19/22 14:15 Dose: 0.5 mg Documented By: JEWELL Methadone HCl (Methadone Hcl 20 Mg/2 Ml Oral.Conc) 125 mg PO DAILY [facility] Last Admin: 10/19/22 08:30 Dose: 125 mg Documented By: JEWELL Nicotine Polacrilex (Nicotine Polacrilex 2 Mg Gum) 2 mg BUCCAL Q2H PRN PRN Reason: Nicotine Cravings Ondansetron HCl (Ondansetron Hcl 4 Mg/2 Ml Vial) 4 mg IVPUSH Q8H PRN PRN Reason: Nausea and Vomiting Oxycodone HCl (Oxycodone Hcl Immed Release 5 Mg Tablet) 5 mg PO Q4H PRN PRN Reason: Pain, Severe (Pain Scale 7-10) Last Admin: 10/19/22 11:05 Dose: 5 mg Documented By: JEWELL Pharmacy Consult (Consult Rx Perform Med Rec) 1 each MISCELLANE ONCE PRN PRN Reason: Consult order Pharmacy Consult (Consult Rx Vancomycin Dosing) 1 each MISCELLANE DAILY PRN PRN Reason: Consult order Sodium Chloride (0.9 % Sodium Chloride Flush 3 Ml Syringe) [facility] Last Admin: 10/19/22 08:39 Dose: 3 ml Documented By: JEWELL Labs 10/19/22 05:33 10/19/22 05:33 Labs: Laboratory Results - last 24 hr 10/17/22 10/18/22 10/19/22 10:41 20:53 05:33 MCV MCH MCHC RDW Plt Count MPV Immature Gran % (Auto) Neut % (Auto) Lymph % (Auto) [place] % (Auto) Eos % (Auto) Baso % (Auto) Lymph # (Auto) [place] # (Auto) Eos # (Auto) Baso # (Auto) Abs Immat Gran (auto) Absolute Neuts (auto) Absolute Nucleated RBC Nucleated RBC % (auto) Anion Gap 13 Estim Creat Clear Calc 170.0 Estimated GFR > 60 Fasting Glucose 91 Calcium 7.6 L Total Bilirubin 0.3 AST 31 ALT 15 Alkaline Phosphatase 115 Total Protein 4.8 L Albumin 1.9 L Vancomycin Trough 14.2 Hepatitis A IgM Ab Nonreactive 10/19/22 05:33 MCV 81.0 MCH 25.8 L MCHC 31.9 RDW 14.5 Plt Count 439 H MPV 8.5 L Immature Gran % (Auto) 2.1 H Neut % (Auto) 75.6 H Lymph % (Auto) 14.7 L [place] % (Auto) 6.0 Eos % (Auto) 1.3 Baso % (Auto) 0.3 Lymph # (Auto) 2.0 [place] # (Auto) 0.8 Eos # (Auto) 0.2 Baso # (Auto) 0.0 Abs Immat Gran (auto) 0.28 H Absolute Neuts (auto) 10.3 H Absolute Nucleated RBC 0.000 Nucleated RBC % (auto) 0.0 Anion Gap Estim Creat Clear Calc Estimated GFR Fasting Glucose Calcium Total Bilirubin AST ALT Alkaline Phosphatase Total Protein Albumin Vancomycin Trough Hepatitis A IgM Ab Microbiology Microbiology Results: Microbiology 10/17/22 10:51 Blood Culture - Preliminary Blood - Venous No growth after 48 hours. 10/17/22 10:41 Blood Culture - Preliminary Blood - Venous No growth after 48 hours. 10/18/22 16:00 Gram Stain - Final Abscess Pulmonary Routine Culture - Preliminary No growth to date. Anaerobic Culture - Preliminary Culture in progress. Assessment and Plan (1) Abscess of lower lobe of right lung without pneumonia: Status: Acute (2) Hepatitis C antibody test positive: Status: Acute (3) Opioid use disorder: Status: Acute Plan 32-year-old male with history of mild intermittent asthma, anxiety, agoraphobia, history of IV drug abuse last use 1.5 months ago, and opioid use disorder on methadone admitted for management of lung abscess in IVDA. 1.RLL abscess -IV cefepime and vanco(3) -right chest tube to BENJIE drain -Flagyl added by ID 2.Hepatitis C Ab positive -Viral Load pending -treatment as per forthcoming data 3.Opioid use Disorder with hx IVDA -continue methadone 4.Mild intermittent asthma-without acute exacerbation -albuterol p.r.n. Lovenox Full code Patient requires ongoing hospitalization to treat right lung abscess with IV antibiotics Time Spent With Patient Time: Total time managing care of this patient today ____ minutes. Quality Stroke Does the patient have a stroke diagnosis?: No VTE Prior VTE?: No VTE Risk Level:: Medical - moderate - high VTE Device Contraindication: Treatment Not Indicated VTE Drug Contraindication: N/A - Med Ordered
[2022-10-19 15:33] VITALS: BP 111/68; PULSE 85; RESP 18; TEMP 36.5; O2SAT 97
[2022-10-19 19:22] VITALS: BP 103/67; PULSE 95; RESP 18; TEMP 36.8; O2SAT 97
[2022-10-20] MEDS: cefEPime HCl 2 GM in 0.9 % Sodium Chloride 50 ML IV ×3 (00:55→16:55)
[2022-10-20] MEDS: 0.9 % Sodium Chloride Flush 3 ML SYRINGE IVFLUSH ×3 (00:55→16:55)
[2022-10-20] MEDS: oxyCODONE HCl Immed Release 5 MG TABLET PO ×5 (00:58→20:13)
[2022-10-20] MEDS: metroNIDAZOLE/NS 500 MG/100 ML PIGGYBACK 100 MG IV ×2 (01:37→14:30)
[2022-10-20] MEDS: LORazepam 0.5 MG TABLET PO ×3 (01:38→20:13)
[2022-10-20] MEDS: guaiFENesin DM 100/10/5 ML 5 ML SYRUP PO (01:46)
[2022-10-20 03:39] VITALS: BP 114/64; PULSE 98; RESP 18; TEMP 36.6; O2SAT 96
[2022-10-20 06:16] LABS: MANUAL DIFF FLAG NO
[2022-10-20 06:22] LABS: Basophils Percent Auto 0.3 % (0-2); Eosinophils Absolute Auto 0.2 X10*3/uL (0.0-0.4); Eosinophils Percent Auto 1.3 % (0-4); Hematocrit 25.4 % (42.0-52.0); Hemoglobin 8.1 g/dl (14.0-18.0); Imm Gran Abs Auto 0.29 X10*3/uL (0.00-0.03); Imm Gran Pct Auto 2.4 % (0.0-0.4); Lymphocytes Absolute Auto 1.7 X10*3/uL (1.2-4.9); Lymphocytes Percent Auto 14.5 % (20-40); Mean Corpuscular HGB Conc 31.9 g/dl (31.0-36.0); Mean Corpuscular Hemoglobin 25.8 pg (27.0-33.0); Mean Corpuscular Volume 80.9 fL (80.0-98.0); Mean Platelet Volume 8.3 fL (9.4-12.4); Monocytes Absolute Auto 0.7 X10*3/uL (0.1-1.2); Monocytes Percent Auto 5.7 % (2-11); Neutrophils Absolute Auto 9.1 x10*3/uL (2.0-8.3); Neutrophils Percent Auto 75.8 % (45-73); Platelet Count 429 X10*3/uL (160-400); Red Blood Count 3.14 X10*6/uL (4.60-5.80); Red Cell Distribution Width 14.6 % (11.0-16.0)
[2022-10-20 06:49] LABS: Alanine Aminotransferase 22 U/L (0-40); Albumin Level 1.9 g/dL (3.5-5.0); Alkaline Phosphatase 104 U/L (39-117); Anion Gap 9 (12-20); Aspartate Amino Transferase 51 U/L (5-37); Bilirubin Total 0.3 mg/dL (0.0-1.0); Blood Urea Nitrogen 6 mg/dL (9-16); Calcium 7.7 mg/dL (8.4-10.2); Carbon Dioxide 27 mmol/L (22-29); Chloride 101 mmol/L (96-108); Creatinine Clr Calc Pharmacy 159.4; Estimated Glomerular Filt Rate > 60; Glucose Fasting 87 mg/dL (60-99); Potassium 4.4 mmol/L (3.3-5.1); Sodium 133 mmol/L (135-145); Total Protein 4.9 g/dL (6.5-8.0)
[2022-10-20 08:00] VITALS: BP 116/69; PULSE 93; RESP 18; TEMP 37.5; O2SAT 95
--- NOTE | 2022-10-20 08:59 | P.PNIM_ITS ---
Subjective Subjective Date of Service: 10/20/22 Interval History: f/u on right lung abscess s/p pig tail cath has pain in the lung, cath draining purulent stuff Review of Systems no fever, has pain in hest no sob Physical Exam Vital Signs: Vital Signs: Last Vital Signs Temp 99.5 F 10/20/22 08:00 Pulse 93 10/20/22 08:00 Resp 18 10/20/22 08:00 BP 116/69 10/20/22 08:00 Pulse Ox 95 10/20/22 08:00 O2 Del Method 10/20/22 08:00 BMI result Body Mass Index 20.9 Const: Other: General: AO X 3, no acute distress Resp: CTA bilateral, right pig tail cath with purulent d/c CVS: S1,S2,RRR GI: +BS, NT, no distention Skin: No rash Neuro: motor grossly intact Psych: appropriate affect Objective Data Active Medications Acetaminophen (Acetaminophen 325 Mg Tablet) 650 mg PO Q6H PRN PRN Reason: Pain, Mild (Pain Scale 1-3) Last Admin: 10/18/22 16:36 Dose: 650 mg Documented By: CHER Docusate Sodium (Docusate Sodium 100 Mg Capsule) 100 mg PO BID PRN PRN Reason: Constipation Enoxaparin Sodium (Enoxaparin Sodium 40 Mg/0.4 Ml Syringe) 40 mg SUBCUT Q24H [facility] Last Admin: 10/19/22 14:03 Dose: 40 mg Documented By: JEWELL Guaifenesin/Dextromethorphan (Guaifenesin Dm 100/10/5 Ml 5 Ml Syrup) 5 ml PO Q4H PRN PRN Reason: cough Last Admin: 10/20/22 01:46 Dose: 5 ml Documented By: STEPHANE Cefepime HCl 2 gm/ Sodium (Chloride) 50 mls @ 100 mls/hr IV Q8H [facility] Last Infusion: 10/20/22 01:25 Dose: 0 mls/hr Documented By: STEPHANE Vancomycin HCl 1,250 mg/ (Sodium Chloride) 250 mls @ 166.667 mls/hr IV Q12H [facility] Last Infusion: 10/20/22 00:20 Dose: 0 mls/hr Documented By: STEPHANE Metronidazole (Flagyl) 500 mg in 100 mls @ 100 mls/hr IV Q12H [facility] Last Infusion: 10/20/22 02:38 Dose: 0 mls/hr Documented By: STEPHANE Lorazepam (Lorazepam 0.5 Mg Tablet) 0.5 mg PO Q6H PRN PRN Reason: Anxiety Last Admin: 10/20/22 01:38 Dose: 0.5 mg Documented By: STEPHANE Methadone HCl (Methadone Hcl 20 Mg/2 Ml Oral.Conc) 125 mg PO DAILY [facility] Last Admin: 10/19/22 08:30 Dose: 125 mg Documented By: JEWELL Nicotine Polacrilex (Nicotine Polacrilex 2 Mg Gum) 2 mg BUCCAL Q2H PRN PRN Reason: Nicotine Cravings Ondansetron HCl (Ondansetron Hcl 4 Mg/2 Ml Vial) 4 mg IVPUSH Q8H PRN PRN Reason: Nausea and Vomiting Oxycodone HCl (Oxycodone Hcl Immed Release 5 Mg Tablet) 5 mg PO Q4H PRN PRN Reason: Pain, Severe (Pain Scale 7-10) Last Admin: 10/20/22 06:03 Dose: 5 mg Documented By: STEPHANE Pharmacy Consult (Consult Rx Perform Med Rec) 1 each MISCELLANE ONCE PRN PRN Reason: Consult order Pharmacy Consult (Consult Rx Vancomycin Dosing) 1 each MISCELLANE DAILY PRN PRN Reason: Consult order Sodium Chloride (0.9 % Sodium Chloride Flush 3 Ml Syringe) 3 ml IVFLUSH QSHIFT [facility] Last Admin: 10/20/22 00:55 Dose: 3 ml Documented By: STEPHANE Labs 10/20/22 05:59 10/20/22 05:59 Labs: Laboratory Results - last 24 hr 10/19/22 10/20/22 10/20/22 21:23 05:59 05:59 MCV 80.9 MCH 25.8 L MCHC 31.9 RDW 14.6 Plt Count 429 H MPV 8.3 L Immature Gran % (Auto) 2.4 H Neut % (Auto) 75.8 H Lymph % (Auto) 14.5 L [place] % (Auto) 5.7 Eos % (Auto) 1.3 Baso % (Auto) 0.3 Lymph # (Auto) 1.7 [place] # (Auto) 0.7 Eos # (Auto) 0.2 Baso # (Auto) 0.0 Abs Immat Gran (auto) 0.29 H Absolute Neuts (auto) 9.1 H Absolute Nucleated RBC 0.000 Nucleated RBC % (auto) 0.0 Anion Gap 9 L Estim Creat Clear Calc 159.4 Estimated GFR > 60 Fasting Glucose 87 Calcium 7.7 L Total Bilirubin 0.3 AST 51 H ALT 22 Alkaline Phosphatase 104 Total Protein 4.9 L Albumin 1.9 L Random Vancomycin 7.0 L Microbiology Microbiology Results: Microbiology 10/18/22 16:00 Gram Stain - Final Abscess Pulmonary Routine Culture - Preliminary Gram positive cocci Anaerobic Culture - Preliminary Culture in progress. 10/17/22 10:51 Blood Culture - Preliminary Blood - Venous No growth after 48 hours. 10/17/22 10:41 Blood Culture - Preliminary Blood - Venous No growth after 48 hours. Assessment and Plan (1) Abscess of lower lobe of right lung without pneumonia: Status: Acute (2) Hepatitis C antibody test positive: Status: Acute (3) Opioid use disorder: Status: Acute Plan 32-year-old male with history of mild intermittent asthma, anxiety, agoraphobia, history of IV drug abuse last use 1.5 months ago, and opioid use disorder on methadone admitted for management of lung abscess in IVDA. 1.RLL abscess -IV cefepime and vanco started 10/17, D4 -Flagyl started by ID on 09/26, D2 -right chest tube to BENJIE drain -ID suggest possibly 3 weeks of IV Abx, TBD -gram stain of aspirate showing gram positive cocci 2.Hepatitis C Ab positive -Viral Load pending -should be considered for treatement on outpatient basis 3.Opioid use Disorder with hx IVDA -continue methadone 4.Mild intermittent asthma-without acute exacerbation -albuterol p.r.n. Lovenox Full code Patient requires ongoing hospitalization to treat right lung abscess with IV antibiotics and ongoing evaluation for possible surgical intervention Time Spent With Patient Time: Total time managing care of this patient today ____ minutes. Quality Stroke Does the patient have a stroke diagnosis?: No VTE Prior VTE?: No VTE Risk Level:: Medical - moderate - high VTE Device Contraindication: Treatment Not Indicated VTE Drug Contraindication: N/A - Med Ordered
[2022-10-20] MEDS: methADONE HCl 20 MG/2 ML ORAL.CONC 125 MG PO (09:19)
--- NOTE | 2022-10-20 09:32 | MHC.CM.PN ---
EMR REVIEWED, PT W/LUNG ABSCESS, METHADONE MAINTENANCE AND RECENT IVDU, PT'S LUNG ABSCESS CULTURE POSITIVE FOR GRAM POSITIVE COCCI, PER ID PT WILL LIKELY NEED 3 WKS IV ABX, D/T CURRENT IVDU PT WILL NEED STR FOR IV ABX, REFERRAL PLACED TO [facility] THEY TAKE METHADONE, CM WILL CON TO FOLLOW D/C NEEDS.
[2022-10-20 09:45] LABS: Vancomycin Random 7.4 mcg/mL (15-20)
--- NOTE | 2022-10-20 10:12 | HE.PHANOTE ---
Addendum entered by Irais Woodward [facility] 10/20/22 10:20: Chose to actually do 1000 grams Q8hr as the dose of 1500 ended up being 22 mg/kg. Original Note: Vancomycin Dosing Addendum Patients level came back 7.4 mg/L. This is sub therapeutic. Renal function has been stable. Will increase dose to 1500 Q12H. Will draw a level @0900 on 10/21
[2022-10-20 11:09] LABS: HCV Log PCR <1.18 NOT DETECTED Log IU/mL (NOT DETECTED); HepC Viral Load <15 NOT DETECTED IU/mL (NOT DETECTED)
[2022-10-20] MEDS: vancomycin HCL 1,000 MG in 0.9 % Sodium Chloride 250 ML 270 MG IV ×2 (11:37→18:27)
[2022-10-20] MEDS: Enoxaparin Sodium 40 MG/0.4 ML SYRINGE SUBCUT (14:30)
[2022-10-20 16:00] VITALS: BP 103/60; PULSE 88; RESP 18; TEMP 36.7; O2SAT 96
[2022-10-20 19:49] VITALS: BP 99/68; PULSE 104; RESP 18; TEMP 36.9; O2SAT 98
[2022-10-20] MEDS: Acetaminophen 325 MG TABLET 650 MG PO (20:17)
[2022-10-21] MEDS: cefEPime HCl 2 GM in 0.9 % Sodium Chloride 50 ML IV ×2 (00:13→07:26)
[2022-10-21] MEDS: oxyCODONE HCl Immed Release 5 MG TABLET PO ×3 (00:22→13:26)
[2022-10-21] MEDS: metroNIDAZOLE/NS 500 MG/100 ML PIGGYBACK 100 MG IV ×2 (01:16→13:26)
[2022-10-21] MEDS: vancomycin HCL 1,000 MG in 0.9 % Sodium Chloride 250 ML 270 MG IV (02:29)
[2022-10-21] MEDS: LORazepam 0.5 MG TABLET PO ×2 (02:33→13:26)
[2022-10-21 03:06] VITALS: BP 108/63; PULSE 82; RESP 18; TEMP 36.8; O2SAT 97
[2022-10-21 06:35] LABS: MANUAL DIFF FLAG NO
[2022-10-21 06:40] LABS: Basophils Percent Auto 0.4 % (0-2); Eosinophils Absolute Auto 0.3 X10*3/uL (0.0-0.4); Eosinophils Percent Auto 2.8 % (0-4); Hematocrit 25.3 % (42.0-52.0); Hemoglobin 8.1 g/dl (14.0-18.0); Imm Gran Abs Auto 0.25 X10*3/uL (0.00-0.03); Imm Gran Pct Auto 2.7 % (0.0-0.4); Lymphocytes Absolute Auto 1.6 X10*3/uL (1.2-4.9); Lymphocytes Percent Auto 17.1 % (20-40); Mean Corpuscular Hemoglobin 26.1 pg (27.0-33.0); Mean Corpuscular Volume 81.6 fL (80.0-98.0); Mean Platelet Volume 8.4 fL (9.4-12.4); Monocytes Absolute Auto 0.6 X10*3/uL (0.1-1.2); Monocytes Percent Auto 6.3 % (2-11); Neutrophils Absolute Auto 6.7 x10*3/uL (2.0-8.3); Neutrophils Percent Auto 70.7 % (45-73); Platelet Count 410 X10*3/uL (160-400); Red Cell Distribution Width 14.7 % (11.0-16.0); White Blood Count 9.4 X10*3/uL (4.8-10.8)
[2022-10-21 07:05] LABS: Alanine Aminotransferase 20 U/L (0-40); Albumin Level 1.8 g/dL (3.5-5.0); Alkaline Phosphatase 91 U/L (39-117); Anion Gap 11 (12-20); Aspartate Amino Transferase 30 U/L (5-37); Bilirubin Total 0.3 mg/dL (0.0-1.0); Blood Urea Nitrogen 7 mg/dL (9-16); Calcium 7.5 mg/dL (8.4-10.2); Carbon Dioxide 27 mmol/L (22-29); Chloride 103 mmol/L (96-108); Creatinine Clr Calc Pharmacy 172.9; Estimated Glomerular Filt Rate > 60; Glucose Fasting 91 mg/dL (60-99); Potassium 4.1 mmol/L (3.3-5.1); Sodium 137 mmol/L (135-145); Total Protein 4.8 g/dL (6.5-8.0)
[2022-10-21 07:20] VITALS: BP 113/68; PULSE 80; RESP 20; TEMP 37.2; O2SAT 97
[2022-10-21] MEDS: methADONE HCl 20 MG/2 ML ORAL.CONC 125 MG PO (07:28)
--- NOTE | 2022-10-21 08:24 | MHC.CM.PN ---
Addendum entered by Verna Drake RN 10/21/22 15:16: FS UPGARDING PT'S MH PLAN TO STANDARD TO COVER STR, PER HOSPITALIST PULMONARY AND THORACIC WILL KEEP PT UNTIL AT LEAST MONDAY. Original Note: EMR REVIEWED, PER HOSPITALIST PT WILL REMAIN INPT THROUGH W/E, AND PT WILL NEED STR FOR APPROX 3 WKS OF IV ABX D/T ACTIVE IVDU, CM WILL CONT TO FOLLOW D/C NEEDS.
--- NOTE | 2022-10-21 09:47 | HE.PHANOTE ---
Vancomycin Dosing Addendum Patients level came back at 11 mg/L. Patients indication is respiratory infection. With current dose of 1000 mg Q8H, patient's trough is estimated to drop. Increased dose to 1250 mg Q8H, last time patient got this dose their level came out higher than expected but still therapeutic. Will attempt the dose again but will get a draw for 10/22 @0900
[2022-10-21] MEDS: vancomycin HCL 1,250 MG in 0.9 % Sodium Chloride 250 ML 166.67 MG IV (11:09)
[2022-10-21] MEDS: Enoxaparin Sodium 40 MG/0.4 ML SYRINGE SUBCUT (13:27)
--- NOTE | 2022-10-21 13:38 | P.PNIM_ITS ---
Subjective Subjective Date of Service: 10/21/22 Interval History: seen and examined this morning follow up for right lung abscess s/p pig tail catheter catheter draining purulent material patient reports pleuritic chest pain with deep inspiration primarily. no sob, fever or chills. Review of Systems Review of Systems: Yes all other systems are reviewed and are negative Constitutional Constitutional: Denies chills and Denies fever(s) Cardiovascular Cardiovascular: Denies palpitations and Denies dyspnea Respiratory Respiratory: Denies cough and Denies dyspnea Gastrointestinal Gastrointestinal: Denies abdominal pain Endocrine Endocrine: Denies palpitations Physical Exam Vital Signs: Vital Signs: Last Vital Signs Temp 98.9 F 10/21/22 07:20 Pulse 80 10/21/22 07:20 Resp 20 10/21/22 07:20 BP 113/68 10/21/22 07:20 Pulse Ox 97 10/21/22 07:20 O2 Del Method 10/21/22 07:20 BMI result Body Mass Index 20.9 Const: General: comfortable, alert and awake Nutritional Appearance: thin Orientation/consciousness: patient oriented x3 Resp: Other: right pig tail catheter in place - draining purulent material Effort & Inspection: normal respiratory effort and able to speak in complete sentences Cardio: Rate: regular rate Heart sounds: S1 normal heart sound present and S2 normal heart sound present GI: Inspection: No distended Palpation (GI): Soft to palpation Neuro: General: patient oriented x3 and CN's II-XI intact bilaterally Extrem: General: Yes no pedal edema Objective Data Active Medications Acetaminophen (Acetaminophen 325 Mg Tablet) 650 mg PO Q6H PRN PRN Reason: Pain, Mild (Pain Scale 1-3) Last Admin: 10/20/22 20:17 Dose: 650 mg Documented By: RICK Docusate Sodium (Docusate Sodium 100 Mg Capsule) 100 mg PO BID PRN PRN Reason: Constipation Enoxaparin Sodium (Enoxaparin Sodium 40 Mg/0.4 Ml Syringe) 40 mg SUBCUT Q24H [facility] Last Admin: 10/21/22 13:27 Dose: 40 mg Documented By: OMI Guaifenesin/Dextromethorphan (Guaifenesin Dm 100/10/5 Ml 5 Ml Syrup) 5 ml PO Q4H PRN PRN Reason: cough Last Admin: 10/20/22 01:46 Dose: 5 ml Documented By: STEPHANE Cefepime HCl 2 gm/ Sodium (Chloride) 50 mls @ 100 mls/hr IV Q8H [facility] Last Infusion: 10/21/22 08:19 Dose: 0 mls/hr Documented By: OMI Metronidazole (Flagyl) 500 mg in 100 mls @ 100 mls/hr IV Q12H [facility] Last Admin: 10/21/22 13:26 Dose: 100 mls/hr Documented By: OMI Vancomycin HCl 1,250 mg/ (Sodium Chloride) 250 mls @ 166.667 mls/hr IV Q8H [facility] Last Infusion: 10/21/22 12:48 Dose: 0 mls/hr Documented By: OMI Lorazepam (Lorazepam 0.5 Mg Tablet) 0.5 mg PO Q6H PRN PRN Reason: Anxiety Last Admin: 10/21/22 13:26 Dose: 0.5 mg Documented By: OMI Methadone HCl (Methadone Hcl 20 Mg/2 Ml Oral.Conc) 125 mg PO DAILY [facility] Last Admin: 10/21/22 07:28 Dose: 125 mg Documented By: CLAUDETTE Nicotine Polacrilex (Nicotine Polacrilex 2 Mg Gum) 2 mg BUCCAL Q2H PRN PRN Reason: Nicotine Cravings Ondansetron HCl (Ondansetron Hcl 4 Mg/2 Ml Vial) 4 mg IVPUSH Q8H PRN PRN Reason: Nausea and Vomiting Oxycodone HCl (Oxycodone Hcl Immed Release 5 Mg Tablet) 5 mg PO Q4H PRN PRN Reason: Pain, Severe (Pain Scale 7-10) Last Admin: 10/21/22 13:26 Dose: 5 mg Documented By: OMI Pharmacy Consult (Consult Rx Perform Med Rec) 1 each MISCELLANE ONCE PRN PRN Reason: Consult order Pharmacy Consult (Consult Rx Vancomycin Dosing) 1 each MISCELLANE DAILY PRN PRN Reason: Consult order Sodium Chloride (0.9 % Sodium Chloride Flush 3 Ml Syringe) 3 ml IVFLUSH QSHIFT [facility] Last Admin: 10/21/22 07:27 Dose: Not Given Documented By: CLAUDETTE Non-Admin Reason: IV Running Labs 10/21/22 05:56 10/21/22 05:56 Labs: Laboratory Results - last 24 hr 10/21/22 10/21/22 10/21/22 05:56 05:56 09:01 MCV 81.6 MCH 26.1 L MCHC 32.0 RDW 14.7 Plt Count 410 H MPV 8.4 L Immature Gran % (Auto) 2.7 H Neut % (Auto) 70.7 Lymph % (Auto) 17.1 L Dale % (Auto) 6.3 Eos % (Auto) 2.8 Baso % (Auto) 0.4 Lymph # (Auto) 1.6 Dale # (Auto) 0.6 Eos # (Auto) 0.3 Baso # (Auto) 0.0 Abs Immat Gran (auto) 0.25 H Absolute Neuts (auto) 6.7 Absolute Nucleated RBC 0.000 Nucleated RBC % (auto) 0.0 Anion Gap 11 L Estim Creat Clear Calc 172.9 Estimated GFR > 60 Fasting Glucose 91 Calcium 7.5 L Total Bilirubin 0.3 AST 30 ALT 20 Alkaline Phosphatase 91 Total Protein 4.8 L Albumin 1.8 L Random Vancomycin 11.0 L Microbiology Microbiology Results: Microbiology 10/18/22 16:00 Gram Stain - Final Abscess Pulmonary Routine Culture - Final Streptococcus intermedius Anaerobic Culture - Preliminary Culture in progress. Assessment and Plan (1) Opioid use disorder: Status: Acute (2) Abscess of lower lobe of right lung without pneumonia: Status: Acute Plan 32-year-old male with history of mild intermittent asthma, anxiety, agoraphobia, history of IV drug abuse last use 1.5 months ago, and opioid use disorder on methadone admitted for management of lung abscess in IVDA. RLL abscess s/p pigtail catheter placed 10/17 by IR IV cefepime and vanco started 10/17, D4 Flagyl started by ID on 09/26, D2 right chest tube to BENJIE drain, still with purulent drainage culture from aspirate growing streptococcus intermedius, will discuss with ID re garding changing to ceftriaxone. will confirm duration of abx repeat CXR from 10/20 showing mild improvement in RLL air fluid level pulmonary and thoracic surgery following. no plan for bronch at this time. Hepatitis C Ab positive should be considered for treatment on outpatient basis Opioid use Disorder with hx IVDA -continue methadone Mild intermittent asthma-without acute exacerbation -albuterol p.r.n. EVT ppx - Lovenox Full code attending - dr. palencia Patient requires ongoing hospitalization to treat right lung abscess with IV antibiotics and ongoing evaluation for possible surgical intervention Time Spent With Patient Time: Total time managing care of this patient today ____ minutes. Quality Stroke Does the patient have a stroke diagnosis?: No VTE Prior VTE?: No VTE Risk Level:: Medical - moderate - high VTE Device Contraindication: Treatment Not Indicated VTE Drug Contraindication: N/A - Med Ordered
[2022-10-21 16:00] VITALS: BP 105/65; PULSE 82; RESP 18; TEMP 37.3; O2SAT 96
[2022-10-21] MEDS: cefTRIAXone sodium 2 GM in 0.9 % Sodium Chloride 50 ML IV (16:28)
[2022-10-21] MEDS: 0.9 % Sodium Chloride Flush 3 ML SYRINGE IVFLUSH ×2 (16:29→23:09)
[2022-10-21 19:55] VITALS: BP 99/65; PULSE 91; RESP 18; TEMP 36.9; O2SAT 96
--- NOTE | 2022-10-21 22:50 | P.PNTS_ITS ---
Subjective Subjective Date of Service: 10/21/22 Patient reports: feels better Interval history: ROS: pt denies fever, chills, dizzyness, shortness of breath, abdominal pain, and calf pain. C/o pain around chest tube site and productive cough which is getting better. Physical Exam Vital Signs: Vital Signs: Last Vital Signs Temp 98.4 F 10/21/22 19:55 Pulse 91 10/21/22 19:55 Resp 18 10/21/22 19:55 BP 99/65 10/21/22 19:55 Pulse Ox 96 10/21/22 19:55 O2 Del Method 10/21/22 19:55 BMI result Body Mass Index 20.9 pt is lying in bed, alert and orientated appearing comfortable HEENT: Other: NC/AT, EOMI, sclera non-icteric. Trachea midline, no JVD, no crepitus Chest: Other: right chest post. axillary line. Connected to BENJIE bulb drain with purulent drainage present. Resp: Other: Diminished at right base. Upper airways clear. Breathing nonlabored. On RA with O2 sats 97%. Cardio: Other: RRR GI: Other: soft, non tender, with intact bowel sounds : Other: voiding freely Skin: Other: no rashes Neuro: Other: grossly intact Extrem: Other: BUE and BLE without edema Psych: Other: appropriate affect Procedures Date of Service Date of Service: 10/21/22 Progress Note: A&P Assessment and plan (1) Thoracic abscess: Status: Acute Assessment and Plan: 32 y/o male who presents with SOB, cough, and fevers found to have a large right lower lung abscess. s/p IR drain on 10/18/22 (drained 295cc, 130, and 170 cc over the last 3 days) * Continue with drainage via right chest drain.? BENJIE should maintain bulb suction at all times.? * Monitor outputs. * Cultures: Streptococcus intermedius. Other cultures pending. Antibiotics changed to Ceftriaxone. ID following * Blood cultures negative continue to be negative to date. * Leukocytosis improving. Continue to monitorl * Pulmonology following - ?if patient would be a candidate for bronchoscopy to drain the abscess endobronchially * CXR in am (ordered) * CT scan on Monday We will manage the right chest drain. Time Spent With Patient Time: Total time managing care of this patient today ____ minutes. Quality Stroke Does the patient have a stroke diagnosis?: No VTE Prior VTE?: No VTE Risk Level:: Medical - moderate - high VTE Device Contraindication: Treatment Not Indicated VTE Drug Contraindication: N/A - Med Ordered
[2022-10-22 03:09] VITALS: BP 111/65; PULSE 84; RESP 18; TEMP 37.3; O2SAT 96
[2022-10-22] MEDS: oxyCODONE HCl Immed Release 5 MG TABLET PO ×3 (05:51→15:06)
[2022-10-22] MEDS: LORazepam 0.5 MG TABLET PO ×3 (05:51→15:36)
[2022-10-22] MEDS: Acetaminophen 325 MG TABLET 650 MG PO ×2 (05:52→15:05)
[2022-10-22 06:47] VITALS: BP 116/61; PULSE 98; RESP 18; TEMP 36.1; O2SAT 97
[2022-10-22 07:09] LABS: Anion Gap 13 (12-20); Blood Urea Nitrogen 8 mg/dL (9-16); Calcium 7.9 mg/dL (8.4-10.2); Carbon Dioxide 28 mmol/L (22-29); Chloride 101 mmol/L (96-108); Estimated Glomerular Filt Rate > 60; Glucose Random 77 mg/dL (60-115); Potassium 4.8 mmol/L (3.3-5.1); Sodium 137 mmol/L (135-145)
[2022-10-22] MEDS: methADONE HCl 20 MG/2 ML ORAL.CONC 125 MG PO (07:38)
[2022-10-22] MEDS: 0.9 % Sodium Chloride Flush 3 ML SYRINGE IVFLUSH ×2 (07:39→15:06)
[2022-10-22 09:20] LABS: Vancomycin Random 2.3 mcg/mL (15-20)
[2022-10-22] MEDS: polyethylene glycoL 3350 17 GM POWD.PACK PO (10:34)
[2022-10-22] MEDS: Docusate Sodium 100 MG CAPSULE PO (10:34)
--- NOTE | 2022-10-22 12:48 | HO.PM.IMPN ---
Subjective Subjective Date of Service: 10/22/22 Interval History: seen and examined this morning follow up for lung abscess reports ongoing pleuritic pain having bouts of anxiety Review of Systems Review of Systems: Yes all other systems are reviewed and are negative Constitutional Constitutional: Denies chills and Denies fever(s) Cardiovascular Cardiovascular: Denies chest pain and Denies palpitations Respiratory Respiratory: Reports cough, Reports pain on inspiration and Reports pain with cough Gastrointestinal Gastrointestinal: Denies abdominal pain, Denies nausea and Denies vomiting Endocrine Endocrine: Denies palpitations Physical Exam Vital Signs: Vital Signs: Last Vital Signs Temp 97 F 10/22/22 06:47 Pulse 98 10/22/22 06:47 Resp 18 10/22/22 06:47 BP 116/61 10/22/22 06:47 Pulse Ox 97 10/22/22 06:47 O2 Del Method 10/22/22 06:47 BMI result Body Mass Index 20.9 Const: General: comfortable, alert and awake Nutritional Appearance: thin Orientation/consciousness: patient oriented x3 Resp: Other: right pig tail catheter in place - with purulent output Effort & Inspection: normal respiratory effort and able to speak in complete sentences Cardio: Rate: regular rate Heart sounds: S1 normal heart sound present and S2 normal heart sound present GI: Inspection: No distended Palpation (GI): Soft to palpation Neuro: General: patient oriented x3 and CN's II-XI intact bilaterally Extrem: General: Yes no pedal edema Objective Data Active Medications Acetaminophen (Acetaminophen 325 Mg Tablet) 650 mg PO Q6H PRN PRN Reason: Pain, Mild (Pain Scale 1-3) Last Admin: 10/22/22 05:52 Dose: 650 mg Documented By: ALONDRA Docusate Sodium (Docusate Sodium 100 Mg Capsule) 100 mg PO DAILY [facility] Last Admin: 10/22/22 10:34 Dose: 100 mg Documented By: ELOISA Enoxaparin Sodium (Enoxaparin Sodium 40 Mg/0.4 Ml Syringe) 40 mg SUBCUT Q24H [facility] Last Admin: 10/21/22 13:27 Dose: 40 mg Documented By: OMI Guaifenesin/Dextromethorphan (Guaifenesin Dm 100/10/5 Ml 5 Ml Syrup) 5 ml PO Q4H PRN PRN Reason: cough Last Admin: 10/20/22 01:46 Dose: 5 ml Documented By: STEPHANE Ceftriaxone Sodium 2 gm/ (Sodium Chloride) 50 mls @ 100 mls/hr IV Q24H [facility] Last Infusion: 10/21/22 17:32 Dose: 0 mls/hr Documented By: OMI Lorazepam (Lorazepam 0.5 Mg Tablet) 0.5 mg PO Q6H PRN PRN Reason: Anxiety Last Admin: 10/22/22 05:51 Dose: 0.5 mg Documented By: ALONDRA Methadone HCl (Methadone Hcl 20 Mg/2 Ml Oral.Conc) 125 mg PO DAILY [facility] Last Admin: 10/22/22 07:38 Dose: 125 mg Documented By: ELOISA Nicotine Polacrilex (Nicotine Polacrilex 2 Mg Gum) 2 mg BUCCAL Q2H PRN PRN Reason: Nicotine Cravings Ondansetron HCl (Ondansetron Hcl 4 Mg/2 Ml Vial) 4 mg IVPUSH Q8H PRN PRN Reason: Nausea and Vomiting Oxycodone HCl (Oxycodone Hcl Immed Release 5 Mg Tablet) 5 mg PO Q4H PRN PRN Reason: Pain, Severe (Pain Scale 7-10) Last Admin: 10/22/22 10:34 Dose: 5 mg Documented By: ELOISA Pharmacy Consult (Consult Rx Perform Med Rec) 1 each MISCELLANE ONCE PRN PRN Reason: Consult order Polyethylene Glycol (Polyethylene Glycol 3350 17 Gm Powd.Pack) 17 gm PO DAILY PRN PRN Reason: Constipation Last Admin: 10/22/22 10:34 Dose: 17 gm Documented By: ELOISA Sodium Chloride (0.9 % Sodium Chloride Flush 3 Ml Syringe) 3 ml IVFLUSH QSHIFT [facility] Last Admin: 10/22/22 07:39 Dose: 3 ml Documented By: ELOISA Labs 10/21/22 05:56 10/22/22 05:20 Labs: Laboratory Results - last 24 hr 10/22/22 10/22/22 05:20 08:46 Anion Gap 13 Estim Creat Clear Calc 157.0 Estimated GFR > 60 Random Glucose 77 Calcium 7.9 L Random Vancomycin 2.3 L Microbiology Microbiology Results: Microbiology 10/17/22 10:41 Blood Culture - Final Blood - Venous No growth after 5 days. 10/18/22 16:00 Gram Stain - Final Abscess Pulmonary Routine Culture - Final Streptococcus intermedius Anaerobic Culture - Preliminary Culture in progress. Assessment and Plan (1) Abscess of lower lobe of right lung without pneumonia: Status: Acute Plan 32-year-old male with history of mild intermittent asthma, anxiety, agoraphobia, history of IV drug abuse last use 1.5 months ago, and opioid use disorder on methadone admitted for management of lung abscess in IVDA. RLL abscess s/p pigtail catheter placed 10/17 by IR IV cefepime, vanco and flagyl - culture from aspirate growing streptococcus intermedius, changed to ceftriaxone 10/21. Will need total 3 weeks of IV abx right chest tube to BENJIE drain, still with purulent drainage repeat CXR from 10/20 showing mild improvement in RLL air fluid level. repeat CXR from today, pending pulmonary and thoracic surgery following. no plan for bronch at this time. plan for repeat Chest CT Monday Hepatitis C Ab positive should be considered for treatment on outpatient basis Opioid use Disorder with hx IVDA -continue methadone Mild intermittent asthma-without acute exacerbation -albuterol p.r.n. Normocytic anemia no previous baseline for comparison no evidence of acute blood loss will check iron profile, b12, folate Mood pt reporting anxiety - will continue ativan prn for now has h/o depression was previously on meds and interested in resuming psych consult pending EVT ppx - Lovenox Full code attending - dr. palencia Patient requires ongoing hospitalization to treat right lung abscess with IV antibiotics and ongoing evaluation for possible surgical intervention Time Spent With Patient Time: Total time managing care of this patient today ____ minutes. Quality Stroke Does the patient have a stroke diagnosis?: No VTE Prior VTE?: No VTE Risk Level:: Medical - moderate - high VTE Device Contraindication: Treatment Not Indicated VTE Drug Contraindication: N/A - Med Ordered
[2022-10-22] MEDS: cefTRIAXone sodium 2 GM in 0.9 % Sodium Chloride 50 ML IV (15:05)
[2022-10-22] MEDS: Enoxaparin Sodium 40 MG/0.4 ML SYRINGE SUBCUT (15:06)
[2022-10-22 15:24] VITALS: BP 100/57; PULSE 94; RESP 18; TEMP 36.7; O2SAT 98
--- NOTE | 2022-10-22 15:53 | P.PNTS_ITS ---
Subjective Subjective Date of Service: 10/22/22 Interval history: patient was seen examined this afternoon. His right-sided chest drain remains in place and continues to drain dark thick fluid with approximately 40 cc of pustulous fluid in the BENJIE bulb which is on self suction. Patient reports nursing drained bulb suction this morning. He states that his breathing has greatly improved over the past several days denies any concerning symptoms such as fevers, chills, hemoptysis and also denies any productive cough. During my examination I did flush drainage catheter to ensure patency with 10 cc of normal saline. Physical Exam Vital Signs: Vital Signs: Last Vital Signs Temp 98.0 F 10/22/22 15:24 Pulse 94 10/22/22 15:24 Resp 18 10/22/22 15:24 BP 100/57 L 10/22/22 15:24 Pulse Ox 98 10/22/22 15:24 O2 Del Method 10/22/22 15:24 BMI result Body Mass Index 20.9 HEENT: Other: NC/AT, EOMI, sclera non-icteric. Trachea midline, no JVD, no crepitus Chest: Other: right chest post. axillary line. Connected to BENJIE bulb drain with purulent drainage present. Resp: Other: Diminished at right base. Upper airways clear. Breathing nonlabored. On RA with O2 sats 97%. Cardio: Other: RRR GI: Other: soft, non tender, with intact bowel sounds : Other: voiding freely Skin: Other: no rashes Neuro: Other: grossly intact Extrem: Other: BUE and BLE without edema Psych: Other: appropriate affect Procedures Date of Service Date of Service: 10/22/22 Progress Note: A&P Assessment and plan (1) Thoracic abscess: Status: Acute Assessment and Plan: 32 y/o male who presents with SOB, cough, and fevers found to have a large right lower lung abscess. s/p IR drain on 10/18/22 (drained 295cc, 130, and 170 cc over the last 3 days) * Continue with drainage via right chest drain.? BENJIE should maintain bulb suction at all times.? * Monitor outputs. * Cultures: Streptococcus intermedius. Other cultures pending. Antibiotics changed to Ceftriaxone. ID following * Blood cultures negative continue to be negative to date. * Leukocytosis improving. Continue to monitorl * Pulmonology following - ?if patient would be a candidate for bronchoscopy to drain the abscess endobronchially * CXR in am (ordered) * CT scan on Monday We will manage the right chest drain. Time Spent With Patient Time: Total time managing care of this patient today ____ minutes. Quality Stroke Does the patient have a stroke diagnosis?: No VTE Prior VTE?: No VTE Risk Level:: Medical - moderate - high VTE Device Contraindication: Treatment Not Indicated VTE Drug Contraindication: N/A - Med Ordered
[2022-10-22 20:00] VITALS: BP 101/60; PULSE 98; RESP 18; TEMP 36.7; O2SAT 97
[2022-10-23] MEDS: 0.9 % Sodium Chloride Flush 3 ML SYRINGE IVFLUSH ×4 (00:03→20:05)
[2022-10-23 04:00] VITALS: BP 100/61; PULSE 68; RESP 18; TEMP 36.8; O2SAT 98
[2022-10-23] MEDS: Acetaminophen 325 MG TABLET 650 MG PO ×3 (04:54→17:31)
[2022-10-23] MEDS: LORazepam 0.5 MG TABLET PO ×2 (04:55→10:54)
[2022-10-23] MEDS: oxyCODONE HCl Immed Release 5 MG TABLET PO ×4 (04:55→21:06)
[2022-10-23 06:20] LABS: Hematocrit 29.5 % (42.0-52.0); Mean Corpuscular HGB Conc 30.5 g/dl (31.0-36.0); Mean Corpuscular Hemoglobin 25.6 pg (27.0-33.0); Mean Corpuscular Volume 83.8 fL (80.0-98.0); Mean Platelet Volume 8.1 fL (9.4-12.4); Platelet Count 482 X10*3/uL (160-400); Red Blood Count 3.52 X10*6/uL (4.60-5.80); Red Cell Distribution Width 15.1 % (11.0-16.0); White Blood Count 10.6 X10*3/uL (4.8-10.8)
[2022-10-23 07:07] LABS: Creatinine Clr Calc Pharmacy 161.9; Estimated Glomerular Filt Rate > 60; Iron 24 mcg/dL (45-160); Percent Iron Saturation 18 % (15-50); Total Iron Binding Capacity 131 mcg/dL (228-428); Unsaturated Iron Binding 107 ug/dL
[2022-10-23 07:19] VITALS: BP 106/60; PULSE 93; RESP 18; TEMP 36.1; O2SAT 95
[2022-10-23 07:37] LABS: Folate 6.3 ng/mL (> or = 4.0); Vitamin B12 501 pg/mL (200-900)
[2022-10-23] MEDS: methADONE HCl 20 MG/2 ML ORAL.CONC 125 MG PO (07:41)
[2022-10-23] MEDS: Docusate Sodium 100 MG CAPSULE PO (07:41)
[2022-10-23] MEDS: polyethylene glycoL 3350 17 GM POWD.PACK PO (10:54)
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
[2022-10-23] MEDS: cefTRIAXone sodium 2 GM in 0.9 % Sodium Chloride 50 ML IV (14:51)
[2022-10-23] MEDS: Enoxaparin Sodium 40 MG/0.4 ML SYRINGE SUBCUT (14:51)
[2022-10-23 15:01] VITALS: BP 103/62; PULSE 79; RESP 18; TEMP 36.3; O2SAT 97
--- NOTE | 2022-10-23 15:10 | HO.PM.IMPN ---
Subjective Subjective Date of Service: 10/23/22 Interval History: seen and examined this morning follow up for right lung abscess feeling better today, less pleuritic pain, no sob Review of Systems Review of Systems: Yes all other systems are reviewed and are negative Constitutional Constitutional: Denies chills and Denies fever(s) Cardiovascular Cardiovascular: Denies chest pain, Denies palpitations and Denies dyspnea Respiratory Respiratory: Denies cough and Denies dyspnea Gastrointestinal Gastrointestinal: Denies abdominal pain, Denies nausea and Denies vomiting Endocrine Endocrine: Denies palpitations Physical Exam Vital Signs: Vital Signs: Last Vital Signs Temp 97.4 F 10/23/22 15:01 Pulse 79 10/23/22 15:01 Resp 18 10/23/22 15:01 BP 103/62 10/23/22 15:01 Pulse Ox 97 10/23/22 15:01 O2 Del Method 10/23/22 15:01 BMI result Body Mass Index 20.9 Const: General: comfortable, alert and awake Nutritional Appearance: thin Orientation/consciousness: patient oriented x3 Resp: Other: right pig tail catheter in place - today with scant purulent output in BENJIE drain dim at right base otherwise clear Effort & Inspection: normal respiratory effort and able to speak in complete sentences Cardio: Rate: regular rate Heart sounds: S1 normal heart sound present and S2 normal heart sound present GI: Inspection: No distended Palpation (GI): Soft to palpation Neuro: General: patient oriented x3 and CN's II-XI intact bilaterally Extrem: General: Yes no pedal edema Objective Data Active Medications Acetaminophen (Acetaminophen 325 Mg Tablet) 650 mg PO Q6H PRN PRN Reason: Pain, Mild (Pain Scale 1-3) Last Admin: 10/23/22 10:54 Dose: 650 mg Documented By: CLAUDETTE Bisacodyl (Bisacodyl 5 Mg Tablet.Dr) 5 mg PO DAILY PRN PRN Reason: Constipation Docusate Sodium (Docusate Sodium 100 Mg Capsule) 100 mg PO DAILY [facility] Last Admin: 10/23/22 07:41 Dose: 100 mg Documented By: ALONDRA Enoxaparin Sodium (Enoxaparin Sodium 40 Mg/0.4 Ml Syringe) 40 mg SUBCUT Q24H [facility] Last Admin: 10/23/22 14:51 Dose: 40 mg Documented By: ELOISA Guaifenesin/Dextromethorphan (Guaifenesin Dm 100/10/5 Ml 5 Ml Syrup) 5 ml PO Q4H PRN PRN Reason: cough Last Admin: 10/20/22 01:46 Dose: 5 ml Documented By: STEPHANE Ceftriaxone Sodium 2 gm/ (Sodium Chloride) 50 mls @ 100 mls/hr IV Q24H [facility] Last Admin: 10/23/22 14:51 Dose: 100 mls/hr Documented By: ELOISA Lorazepam (Lorazepam 1 Mg Tablet) 1 mg PO TID PRN PRN Reason: anxiety Methadone HCl (Methadone Hcl 20 Mg/2 Ml Oral.Conc) 125 mg PO DAILY [facility] Last Admin: 10/23/22 07:41 Dose: 125 mg Documented By: ALONDRA Nicotine Polacrilex (Nicotine Polacrilex 2 Mg Gum) 2 mg BUCCAL Q2H PRN PRN Reason: Nicotine Cravings Ondansetron HCl (Ondansetron Hcl 4 Mg/2 Ml Vial) 4 mg IVPUSH Q8H PRN PRN Reason: Nausea and Vomiting Oxycodone HCl (Oxycodone Hcl Immed Release 5 Mg Tablet) 5 mg PO Q4H PRN PRN Reason: Pain, Severe (Pain Scale 7-10) Last Admin: 10/23/22 10:54 Dose: 5 mg Documented By: CLAUDETTE Pharmacy Consult (Consult Rx Perform Med Rec) 1 each MISCELLANE ONCE PRN PRN Reason: Consult order Polyethylene Glycol (Polyethylene Glycol 3350 17 Gm Powd.Pack) 17 gm PO DAILY PRN PRN Reason: Constipation Last Admin: 10/23/22 10:54 Dose: 17 gm Documented By: CLAUDETTE Sodium Chloride (0.9 % Sodium Chloride Flush 3 Ml Syringe) 3 ml IVFLUSH QSHIFT [facility] Last Admin: 10/23/22 15:04 Dose: 3 ml Documented By: ELOISA Labs 10/23/22 05:32 10/23/22 05:32 Labs: Laboratory Results - last 24 hr 10/23/22 10/23/22 10/23/22 05:32 05:32 05:32 MCV 83.8 MCH 25.6 L MCHC 30.5 L RDW 15.1 Plt Count 482 H MPV 8.1 L Absolute Nucleated RBC 0.000 Nucleated RBC % (auto) 0.0 Estim Creat Clear Calc 161.9 Estimated GFR > 60 Iron 24 L TIBC 131 L % Saturation 18 Unsat Iron Binding 107 Vitamin B12 501 Folate 6.3 Microbiology Microbiology Results: Microbiology 10/18/22 16:00 Gram Stain - Final Abscess Pulmonary Routine Culture - Final Streptococcus intermedius Anaerobic Culture - Final Prevotella oralis group 10/17/22 10:51 Blood Culture - Final Blood - Venous No growth after 5 days. 10/17/22 10:41 Blood Culture - Final Blood - Venous No growth after 5 days. Assessment and Plan (1) Thoracic abscess: Status: Acute Plan 32-year-old male with history of mild intermittent asthma, anxiety, agoraphobia, history of IV drug abuse last use 1.5 months ago, and opioid use disorder on methadone admitted for management of lung abscess in [facility]. RLL abscess s/p pigtail catheter placed 10/17 by IR Initially treated with IV cefepime, vanco and flagyl - culture from aspirate growing streptococcus intermedius, changed to ceftriaxone 10/21. Will need total 3 weeks of IV abx right chest tube to BENJIE drain with purulent drainage, drainage decreasing over last 24 hours repeat CXR from 10/20 showing mild improvement in RLL air fluid level. repeat CXR from today, pending pulmonary and thoracic surgery following. no plan for bronch at this time. plan for repeat Chest CT 10/24 per thoracic surgery Hepatitis C Ab positive should be considered for treatment on outpatient basis Opioid use Disorder with hx IVDA -continue methadone Mild intermittent asthma-without acute exacerbation -albuterol p.r.n. Normocytic anemia no previous baseline for comparison no evidence of acute blood loss iron low at 24 b12, folate wnl will check stool occult H/H has remained stable Mood pt reporting anxiety - increase dose of ativan has h/o depression, was previously on meds and interested in resuming psych consult pending EVT ppx - Lovenox Full code attending - dr. dumont Patient requires ongoing hospitalization to treat right lung abscess with IV antibiotics and management of chest tube Time Spent With Patient Time: Total time managing care of this patient today ____ minutes. Quality Stroke Does the patient have a stroke diagnosis?: No VTE Prior VTE?: No VTE Risk Level:: Medical - moderate - high VTE Device Contraindication: Treatment Not Indicated VTE Drug Contraindication: N/A - Med Ordered
[2022-10-23] MEDS: LORazepam 1 MG TABLET PO (17:32)
[2022-10-23 19:08] VITALS: BP 112/66; PULSE 89; RESP 15; TEMP 36.8; O2SAT 98
[2022-10-23] MEDS: guaiFENesin DM 100/10/5 ML 5 ML SYRUP PO (20:05)
[2022-10-24] MEDS: oxyCODONE HCl Immed Release 5 MG TABLET PO ×3 (02:24→11:57)
[2022-10-24] MEDS: Acetaminophen 325 MG TABLET 650 MG PO (02:24)
[2022-10-24] MEDS: LORazepam 1 MG TABLET PO ×3 (02:25→19:52)
[2022-10-24 03:29] VITALS: BP 110/60; PULSE 84; RESP 20; TEMP 37; O2SAT 96
[2022-10-24] MEDS: methADONE HCl 20 MG/2 ML ORAL.CONC 125 MG PO (07:35)
[2022-10-24] MEDS: Docusate Sodium 100 MG CAPSULE PO (07:35)
[2022-10-24] MEDS: 0.9 % Sodium Chloride Flush 3 ML SYRINGE IVFLUSH ×3 (07:38→19:52)
[2022-10-24 08:00] VITALS: BP 118/75; PULSE 80; RESP 18; TEMP 36.2; O2SAT 95
--- NOTE | 2022-10-24 10:28 | MHC.CLN ---
NUTRITION DIET=REGULAR. INTAKE USUALLY 100%. PATIENT WITH NORMAL BMI BUT 87% IBW. CONTINUE TO FOLLOW WEEKLY AT POTENTIAL FOR NUTRITIONAL RISK.
--- NOTE | 2022-10-24 12:05 | P.PNIM_ITS ---
Subjective Subjective Date of Service: 10/24/22 Review of Systems Follow up lung abscess still with pain at catheter site doing ok with his withdrawals Physical Exam Vital Signs: Vital Signs: Last Vital Signs Temp 97.2 F 10/24/22 08:00 Pulse 80 10/24/22 08:00 Resp 18 10/24/22 08:00 BP 118/75 10/24/22 08:00 Pulse Ox 95 10/24/22 08:00 O2 Del Method 10/24/22 08:00 BMI result Body Mass Index 20.9 Appearing in no acute distress lung sounds are clear to auscultation, right chest pig tail catheter in place and draining milk colored drainage heart regular rate rhythm, clear S1, S2 positive bowel sounds, abdomen is soft, nontender neuro patient is alert x3, no focal deficits Objective Data Active Medications Acetaminophen (Acetaminophen 325 Mg Tablet) 650 mg PO Q6H PRN PRN Reason: Pain, Mild (Pain Scale 1-3) Last Admin: 10/24/22 02:24 Dose: 650 mg Documented By: ALONDRA Bisacodyl (Bisacodyl 5 Mg Tablet.Dr) 5 mg PO DAILY PRN PRN Reason: Constipation Docusate Sodium (Docusate Sodium 100 Mg Capsule) 100 mg PO DAILY [facility] Last Admin: 10/24/22 07:35 Dose: 100 mg Documented By: OMI Enoxaparin Sodium (Enoxaparin Sodium 40 Mg/0.4 Ml Syringe) 40 mg SUBCUT Q24H [facility] Last Admin: 10/23/22 14:51 Dose: 40 mg Documented By: ELOISA Guaifenesin/Dextromethorphan (Guaifenesin Dm 100/10/5 Ml 5 Ml Syrup) 5 ml PO Q4H PRN PRN Reason: cough Last Admin: 10/23/22 20:05 Dose: 5 ml Documented By: ALONDRA Ceftriaxone Sodium 2 gm/ (Sodium Chloride) 50 mls @ 100 mls/hr IV Q24H [facility] Last Infusion: 10/23/22 15:29 Dose: 0 mls/hr Documented By: ELOISA Lorazepam (Lorazepam 1 Mg Tablet) 1 mg PO TID PRN PRN Reason: anxiety Last Admin: 10/24/22 11:18 Dose: 1 mg Documented By: OMI Methadone HCl (Methadone Hcl 20 Mg/2 Ml Oral.Conc) 125 mg PO DAILY [facility] Last Admin: 10/24/22 07:35 Dose: 125 mg Documented By: OMI Nicotine Polacrilex (Nicotine Polacrilex 2 Mg Gum) 2 mg BUCCAL Q2H PRN PRN Reason: Nicotine Cravings Ondansetron HCl (Ondansetron Hcl 4 Mg/2 Ml Vial) 4 mg IVPUSH Q8H PRN PRN Reason: Nausea and Vomiting Oxycodone HCl (Oxycodone Hcl Immed Release 5 Mg Tablet) 5 mg PO Q4H PRN PRN Reason: Pain, Severe (Pain Scale 7-10) Last Admin: 10/24/22 11:57 Dose: 5 mg Documented By: APOLLO Pharmacy Consult (Consult Rx Perform Med Rec) 1 each MISCELLANE ONCE PRN PRN Reason: Consult order Polyethylene Glycol (Polyethylene Glycol 3350 17 Gm Powd.Pack) 17 gm PO DAILY PRN PRN Reason: Constipation Last Admin: 10/23/22 10:54 Dose: 17 gm Documented By: CLAUDETTE Sodium Chloride (0.9 % Sodium Chloride Flush 3 Ml Syringe) 3 ml IVFLUSH [facility] Last Admin: 10/24/22 07:38 Dose: 3 ml Documented By: OMI Labs 10/23/22 05:32 10/23/22 05:32 Microbiology Microbiology Results: Microbiology 10/18/22 16:00 Direct Acid Fast Bacilli Smear - Final Abscess Pulmonary 10/18/22 16:00 Fungal Identification - Preliminary Abscess Pulmonary Culture in progress. 10/18/22 16:00 Gram Stain - Final Abscess Pulmonary Routine Culture - Final Streptococcus intermedius Anaerobic Culture - Final Prevotella oralis group Assessment and Plan (1) Thoracic abscess: Status: Acute Plan 32-year-old male with history of mild intermittent asthma, anxiety, agoraphobia, history of IV drug abuse last use 1.5 months ago, and opioid use disorder on methadone admitted for management of lung abscess in [facility]. RLL abscess s/p pigtail catheter placed 10/17 by IR Initially treated with IV cefepime, vanco and flagyl - culture from aspirate growing streptococcus intermedius, changed to ceftriaxone 10/21. Will need total 3 weeks of IV abx right chest tube to BENJIE drain with purulent drainage, drainage decreasing over last 24 hours repeat CXR from 10/20 showing mild improvement in RLL air fluid level. pulmonary and thoracic surgery following. no plan for bronch at this time. repeat Chest CT 10/24 significant decrease in abscess size Hepatitis C Ab positive should be considered for treatment on outpatient basis Opioid use Disorder with hx IVDA continue methadone Mild intermittent asthma-without acute exacerbation albuterol p.r.n. Normocytic anemia no previous baseline for comparison no evidence of acute blood loss iron low at 24 b12, folate wnl will check stool occult H/H has remained stable Mood pt reporting anxiety - increase dose of ativan has h/o depression, was previously on meds and interested in resuming psych consult pending EVT ppx - Lovenox Full code attending - dr. Marino Patient requires ongoing hospitalization to treat right lung abscess with IV antibiotics and management of chest tube Time Spent With Patient Time: Total time managing care of this patient today ____ minutes. Quality Stroke Does the patient have a stroke diagnosis?: No VTE Prior VTE?: No VTE Risk Level:: Medical - moderate - high VTE Device Contraindication: Treatment Not Indicated VTE Drug Contraindication: N/A - Med Ordered
--- NOTE | 2022-10-24 13:44 | MHC.CM.PN ---
PER MD ROUNDS, PT NOT YET MEDICALLY CLEARED, REQUIRING IV ABX AND MANAGEMENT OF CHEST TUBE PT LIKELY TO NEED STR FOR 3 WEEKS OF IV ABX, REFERRALS OUT, [facility] FOLLOWING
[2022-10-24] MEDS: Enoxaparin Sodium 40 MG/0.4 ML SYRINGE SUBCUT (15:53)
[2022-10-24] MEDS: cefTRIAXone sodium 2 GM in 0.9 % Sodium Chloride 50 ML IV (15:54)
[2022-10-24 16:00] VITALS: BP 111/70; PULSE 98; RESP 17; TEMP 37.2; O2SAT 97
--- NOTE | 2022-10-24 17:44 | P.PNTS_ITS ---
Subjective Subjective Date of Service: 10/24/22 Interval history: pt complaints of occasionally feeling chills but no fevers. He states his breathing is improving. ROS: denies abdominal pain, calf tenderness, generalized weakness, and states joints such as knees feel less swollen. Does complain of Pain in lungs using IS. Physical Exam Vital Signs: Vital Signs: Last Vital Signs Temp 99 F 10/24/22 16:00 Pulse 98 10/24/22 16:00 Resp 17 10/24/22 16:00 BP 111/70 10/24/22 16:00 Pulse Ox 97 10/24/22 16:00 O2 Del Method 10/24/22 16:00 BMI result Body Mass Index 20.9 10/24/[address]: LUNGS/PLEURA/AIRWAYS: Interval placement of right pigtail catheter in right lower lobe abscess still containing air and complex fluid. The collection has mildly decreased in size measuring approximately 9.9 TRVx 7.2 AP x 8.2 CC cm (previously 11.7 x 11.3 x 13.4 cm). A separate subpleural collection anterolateral to the larger collection measures 5.0 x 2.2 x 3.4 cm (image 42, series 3; image 60, series 8). The lungsare otherwise clear. Trace left pleural effusion. The airways are patent. 10/17/22: Pleural Fluid Negative for malignant cells 10/17/22 Blood Cultures X 2 Final - No growth 10/19/22 Micro of pleural fluid: Streptococcus intermedius and Prevotella orales group (Pen/Amp resistant) 10/19/22 Fungal - other (not final) Const: Other: pt is A +O X 3, resting comfortably in bed. On RA. General: cooperative HEENT: Other: NC/AT, sclera non-icteric Neck: Other: No JVD, no crepitus and no cervical lymphadenopathy. Chest: Other: No crepitus. Right post axillary pigtail connected to BENJIE with whitish-camacho thin purulent drainage in bulb. Resp: Other: RRR mildly diminished at right base otherwise clear bilaterally upper lung herman. No wheezes. Breathing non-labored and no accessory muscle use. no crepitus Cardio: Other: RRR GI: Other: Abdomen soft nontender and nondistended with intact bowel sounds : Other: voiding freely Skin: Other: No rashes Neuro: Other: Grossly intact Extrem: Other: BUE and BLE without edema and no calf tenderness Psych: Other: appropriate Procedures Date of Service Date of Service: 10/24/22 Progress Note: A&P Assessment and plan (1) Abscess of lower lobe of right lung without pneumonia: Status: Acute Assessment and Plan: 32 y/o male who presents with SOB, cough, and fevers found to have a large right lower lung abscess. s/p IR drain on 10/18/22? (drained 295cc, 130, and 170, 80, 33, 5 and 5 cc since drain placed on 10/18/22) * Continue with drainage via right chest drain.? BENJIE should maintain bulb suction at all times.? * Monitor outputs. Follow up CBC in am and if leukocytosis resolved and if minimal output, may remove drain. * Cultures:???Streptococcus intermedius and Prevotella Orales.? Antibiotics changed to Ceftriaxone.? ID following * Blood cultures negative and final. * CT shows slight decrease in 1 abscess and relatively stable size of the other. * CXR in am (ordered) * Care and images reviewed and discussed with Dr. Mccann Time Spent With Patient Time: Total time managing care of this patient today ____ minutes. Quality Stroke Does the patient have a stroke diagnosis?: No VTE Prior VTE?: No VTE Risk Level:: Medical - moderate - high VTE Device Contraindication: Treatment Not Indicated VTE Drug Contraindication: N/A - Med Ordered
[2022-10-24 19:33] VITALS: BP 109/64; PULSE 88; RESP 16; TEMP 36.2; O2SAT 96
[2022-10-24] MEDS: oxyCODONE HCl Immed Release 5 MG TABLET 10 MG PO (19:48)
[2022-10-25] MEDS: oxyCODONE HCl Immed Release 5 MG TABLET 10 MG PO ×5 (00:11→19:30)
[2022-10-25] MEDS: Acetaminophen 325 MG TABLET 650 MG PO ×2 (00:11→19:30)
[2022-10-25 03:57] VITALS: BP 106/59; PULSE 72; RESP 18; TEMP 36.5; O2SAT 98
[2022-10-25] MEDS: LORazepam 1 MG TABLET PO ×3 (04:12→19:30)
[2022-10-25 06:09] LABS: MANUAL DIFF FLAG NO
[2022-10-25 06:25] LABS: Basophils Percent Auto 0.5 % (0-2); Eosinophils Absolute Auto 0.2 X10*3/uL (0.0-0.4); Eosinophils Percent Auto 2.3 % (0-4); Hemoglobin 8.4 g/dl (14.0-18.0); Imm Gran Abs Auto 0.14 X10*3/uL (0.00-0.03); Imm Gran Pct Auto 1.8 % (0.0-0.4); Lymphocytes Absolute Auto 1.7 X10*3/uL (1.2-4.9); Lymphocytes Percent Auto 21.6 % (20-40); Mean Corpuscular HGB Conc 31.1 g/dl (31.0-36.0); Mean Corpuscular Hemoglobin 25.8 pg (27.0-33.0); Mean Corpuscular Volume 83.1 fL (80.0-98.0); Mean Platelet Volume 8.4 fL (9.4-12.4); Monocytes Absolute Auto 0.5 X10*3/uL (0.1-1.2); Monocytes Percent Auto 6.6 % (2-11); Neutrophils Absolute Auto 5.3 x10*3/uL (2.0-8.3); Neutrophils Percent Auto 67.2 % (45-73); Platelet Count 380 X10*3/uL (160-400); Red Blood Count 3.25 X10*6/uL (4.60-5.80); Red Cell Distribution Width 15.3 % (11.0-16.0); White Blood Count 7.9 X10*3/uL (4.8-10.8)
[2022-10-25] MEDS: Docusate Sodium 100 MG CAPSULE PO (07:23)
[2022-10-25] MEDS: methADONE HCl 20 MG/2 ML ORAL.CONC 125 MG PO (07:24)
[2022-10-25] MEDS: 0.9 % Sodium Chloride Flush 3 ML SYRINGE IVFLUSH ×3 (07:26→19:30)
[2022-10-25 08:00] VITALS: BP 120/72; PULSE 84; RESP 20; TEMP 36.9; O2SAT 97
--- NOTE | 2022-10-25 10:26 | P.PNIM_ITS ---
Subjective Subjective Date of Service: 10/25/22 Review of Systems Follow up lung abscess still with pain at catheter site doing ok with his withdrawals Physical Exam Vital Signs: Vital Signs: Last Vital Signs Temp 98.4 F 10/25/22 08:00 Pulse 84 10/25/22 08:00 Resp 20 10/25/22 08:00 BP 120/72 10/25/22 08:00 Pulse Ox 97 10/25/22 08:00 O2 Del Method 10/25/22 08:00 BMI result Body Mass Index 20.9 Appearing in no acute distress LSCTA pig tail cath in place to right lung heart regular rate rhythm, clear S1, S2 positive bowel sounds, abdomen is soft, nontender neuro patient is alert x3, no focal deficits Objective Data Active Medications Acetaminophen (Acetaminophen 325 Mg Tablet) 650 mg PO Q6H PRN PRN Reason: Pain, Mild (Pain Scale 1-3) Last Admin: 10/25/22 00:11 Dose: 650 mg Documented By: SARAH Bisacodyl (Bisacodyl 5 Mg Tablet.) 5 mg PO DAILY PRN PRN Reason: Constipation Docusate Sodium (Docusate Sodium 100 Mg Capsule) 100 mg PO DAILY [facility] Last Admin: 10/25/22 07:23 Dose: 100 mg Documented By: DABDavid Enoxaparin Sodium (Enoxaparin Sodium 40 Mg/0.4 Ml Syringe) 40 mg SUBCUT Q24H [facility] Last Admin: 10/24/22 15:53 Dose: 40 mg Documented By: OMI Guaifenesin/Dextromethorphan (Guaifenesin Dm 100/10/5 Ml 5 Ml Syrup) 5 ml PO Q4H PRN PRN Reason: cough Last Admin: 10/23/22 20:05 Dose: 5 ml Documented By: ALONDRA Ceftriaxone Sodium 2 gm/ (Sodium Chloride) 50 mls @ 100 mls/hr IV Q24H [facility] Last Infusion: 10/24/22 16:28 Dose: 0 mls/hr Documented By: OMI Lorazepam (Lorazepam 1 Mg Tablet) 1 mg PO TID PRN PRN Reason: anxiety Last Admin: 10/25/22 04:12 Dose: 1 mg Documented By: SARAH Methadone HCl (Methadone Hcl 20 Mg/2 Ml Oral.Conc) 125 mg PO DAILY [facility] Last Admin: 10/25/22 07:24 Dose: 125 mg Documented By: BASIA Nicotine Polacrilex (Nicotine Polacrilex 2 Mg Gum) 2 mg BUCCAL Q2H PRN PRN Reason: Nicotine Cravings Ondansetron HCl (Ondansetron Hcl 4 Mg/2 Ml Vial) 4 mg IVPUSH Q8H PRN PRN Reason: Nausea and Vomiting Oxycodone HCl (Oxycodone Hcl Immed Release 5 Mg Tablet) 10 mg PO Q4H PRN PRN Reason: Pain, Severe (Pain Scale 7-10) Last Admin: 10/25/22 08:59 Dose: 10 mg Documented By: BASIA Pharmacy Consult (Consult Rx Perform Med Rec) 1 each MISCELLANE ONCE PRN PRN Reason: Consult order Polyethylene Glycol (Polyethylene Glycol 3350 17 Gm Powd.Pack) 17 gm PO DAILY PRN PRN Reason: Constipation Last Admin: 10/23/22 10:54 Dose: 17 gm Documented By: CLAUDETTE Sodium Chloride (0.9 % Sodium Chloride Flush 3 Ml Syringe) [facility] Last Admin: 10/25/22 07:26 Dose: 3 ml Documented By: BASIA Labs 10/25/22 05:22 10/23/22 05:32 Labs: Laboratory Results - last 24 hr 10/25/22 05:22 MCV 83.1 MCH 25.8 L MCHC 31.1 RDW 15.3 Plt Count 380 MPV 8.4 L Immature Gran % (Auto) 1.8 H Neut % (Auto) 67.2 Lymph % (Auto) 21.6 Guthrie % (Auto) 6.6 Eos % (Auto) 2.3 Baso % (Auto) 0.5 Lymph # (Auto) 1.7 Guthrie # (Auto) 0.5 Eos # (Auto) 0.2 Baso # (Auto) 0.0 Abs Immat Gran (auto) 0.14 H Absolute Neuts (auto) 5.3 Absolute Nucleated RBC 0.000 Nucleated RBC % (auto) 0.0 Microbiology Microbiology Results: Microbiology 10/18/22 16:00 Fungal Identification - Preliminary Abscess Pulmonary Culture in progress. 10/18/22 16:00 Direct Acid Fast Bacilli Smear - Final Abscess Pulmonary Assessment and Plan (1) Thoracic abscess: Status: Acute Plan 32-year-old male with history of mild intermittent asthma, anxiety, agoraphobia, history of IV drug abuse last use 1.5 months ago, and opioid use disorder on methadone admitted for management of lung abscess in IVDA. RLL abscess s/p pigtail catheter placed 10/17 by IR Initially treated with IV cefepime, vanco and flagyl - culture from aspirate growing streptococcus intermedius, changed to ceftriaxone 10/21. Will need total 3 weeks of IV abx right chest tube to BENJIE drain with purulent drainage, drainage decreasing over last 24 hours pulmonary and thoracic surgery following. no plan for bronch at this time, continue BENJIE bulb suction repeat Chest CT 10/24 significant decrease in abscess size possible dc of drain in am after repeat CXR Hepatitis C Ab positive should be considered for treatment on outpatient basis Opioid use Disorder with hx IVDA continue methadone Mild intermittent asthma-without acute exacerbation albuterol p.r.n. Normocytic anemia no previous baseline for comparison no evidence of acute blood loss iron low at 24 b12, folate wnl will check stool occult H/H has remained stable Mood pt reporting anxiety and depression continue ativan psych consul t rec Lexapro 5mg daily DVT ppx - Lovenox Full code attending - dr. Crump Patient requires ongoing hospitalization to treat right lung abscess with IV antibiotics and management of chest tube Time Spent With Patient Time: Total time managing care of this patient today ____ minutes. Quality Stroke Does the patient have a stroke diagnosis?: No VTE Prior VTE?: No VTE Risk Level:: Medical - moderate - high VTE Device Contraindication: Treatment Not Indicated VTE Drug Contraindication: N/A - Med Ordered
[2022-10-25] MEDS: Escitalopram Oxalate 5 MG TABLET PO (12:14)
--- NOTE | 2022-10-25 13:26 | MHC.CM.PN ---
EMR REVIEWED, PER HOSPITALIST PT COULD BE CLEARED FOR D/C TOMORROW, WILL NEED 3 WKS IV ABX AND REPORTS THORACIC MAY REMOVE PIGTAIL CT TOMORROW. [facility]PT'S MANAGED MEDICAID PLAN AND CM HAS LET THEM KNOW THAT PT UPGRADED TO STANDARD AND AWAITING RESPONSE. REFERRAL PAPER FAXED TO [facility] AND RECEIVED FAX CONFIRMATION, MESSAGE ALSO LEFT ON REFERRAL LINE. CM ATTEMPTED TO FAX PAPER REFERRAL TO [facility] X2 AND FAX BUSY, CM ATTEMPTING A 3RD TIME AT TIME OF THIS NOTE AND WILL CONT TO ATTEMPT UNTIL FAX GOES THROUGH. CM CONTACTED ADMISSIONS LIAISON AT 1:38PM AND SHE REPORTED THERE ARE NO BEDS TODAY HOWEVER ONE MAY COME UP TOMORROW AND SAID TO FAX REFERRAL. CM WILL CONT TO FOLLOW D/C NEEDS.
[2022-10-25] MEDS: Enoxaparin Sodium 40 MG/0.4 ML SYRINGE SUBCUT (13:39)
[2022-10-25 15:35] VITALS: BP 106/62; PULSE 93; RESP 18; TEMP 37; O2SAT 98
[2022-10-25] MEDS: cefTRIAXone sodium 2 GM in 0.9 % Sodium Chloride 50 ML IV (15:44)
--- NOTE | 2022-10-25 15:51 | P.PNTS_ITS ---
Subjective Subjective Date of Service: 10/25/22 Interval history: Patient feeling well. Having some discomfort around the pigtail site over the right chest, but otherwise no specific complaints. Denies any fever, chills, chest pain/pressure, SOB, productive cough. Pigtail remained to bulb suction with about 40cc since yesterday and another 25cc in bulb at time of my exam. Diagnostics: Short CBC 10/25/22 Range/Units 05:22 WBC 7.9 (4.8-10.8) X10*3/uL Hgb 8.4 L (14.0-18.0) g/dl Hct 27.0 L (42.0-52.0) % Plt Count 380 (160-400) X10*3/uL Microbiology 10/18/22 16:00 Abscess Pulmonary Gram Stain - Final 10/18/22 16:00 Abscess Pulmonary Anaerobic Culture - Final Streptococcus intermedius Prevotella oralis group Impressions Chest X-Ray 10/25/22 07:31 IMPRESSION: 1. Similar appearance to the pleural-based opacities at the right lung base. 2. Stable position to the right pigtail pleural drain. Physical Exam Vital Signs: Vital Signs: Last Vital Signs Temp 98.6 F 10/25/22 15:35 Pulse 93 10/25/22 15:35 Resp 18 10/25/22 15:35 BP 106/62 10/25/22 15:35 Pulse Ox 98 10/25/22 15:35 O2 Del Method 10/25/22 15:35 BMI result Body Mass Index 20.9 General: No acute distress, resting comfortably in bed, well developed Head: Normocephalic, atraumatic, symmetric Eyes: Sclera anicteric, eyelids without edema or erythema, +EOMS intact ENT: Oral mucosa and tongue are moist Neck: Soft, supple, *symmetric, trachea midline, no crepitus Cardiovascular: Regular rate and rhythm, no murmur/rubs/gallops, BUE and BLE without edema, no calf tenderness bilaterally Respiratory: Lungs CTA B, breathing nonlabored, speaking in full sentences, on room air. No use of accessory muscles. Left pigtail drain to bulb suction, light cream colored purulent drainage within bulb (~65cc total over last 24 hours). No crepitus. Insertion site clean without erythema. Gastrointestinal: Soft, non-tender, non-distended, +normoactive bowel sounds. Skin: Warm and dry throughout, no rashes Neurological: Alert and oriented x 3, no focal neurological deficit noted Psychiatric: No agitation, appropriate affect Procedures Date of Service Date of Service: 10/25/22 Progress Note: A&P Assessment and plan (1) Abscess of lower lobe of right lung without pneumonia: Status: Acute Assessment and Plan: 32 year old male with history of IVDA found to have large right lower lobe lung abscess. s/p IR pigtail placement on 10/18/22. * Patient has had <100cc drainage per 24 hours from the right chest drain for the last several days. * Afebrile, no leukocytosis. * CXr today shows stable right lung opacities representing known abscess and small loculated collection. * Discussed care with Dr. Mccann. * Right pigtail drain removed without difficulty in its entirety. DSD placed over the site which can be removed tomorrow. * Patient will need ongoing IV abx likely for several weeks. ID following for e xact recommendations. At this point there is no further Thoracic Surgical intervention required. We will sign off of this patient. Please do not hesitate to call us back with any questions or concerns. Time Spent With Patient Time: Total time managing care of this patient today ____ minutes. Quality Stroke Does the patient have a stroke diagnosis?: No VTE Prior VTE?: No VTE Risk Level:: Medical - moderate - high VTE Device Contraindication: Treatment Not Indicated VTE Drug Contraindication: N/A - Med Ordered
[2022-10-25 19:49] VITALS: BP 123/73; PULSE 126; RESP 20; TEMP 38; O2SAT 95
[2022-10-26] MEDS: oxyCODONE HCl Immed Release 5 MG TABLET 10 MG PO ×4 (00:12→19:42)
[2022-10-26 03:29] VITALS: BP 106/50; PULSE 104; RESP 18; TEMP 36.9; O2SAT 97
[2022-10-26] MEDS: LORazepam 1 MG TABLET PO ×3 (03:39→19:42)
[2022-10-26] MEDS: Acetaminophen 325 MG TABLET 650 MG PO ×2 (04:57→19:46)
[2022-10-26] MEDS: guaiFENesin DM 100/10/5 ML 5 ML SYRUP PO ×2 (04:58→19:46)
[2022-10-26 07:17] VITALS: BP 116/57; PULSE 75; RESP 14; TEMP 36.6; O2SAT 98
[2022-10-26] MEDS: Escitalopram Oxalate 5 MG TABLET PO (07:23)
[2022-10-26] MEDS: Docusate Sodium 100 MG CAPSULE PO (07:23)
[2022-10-26] MEDS: methADONE HCl 20 MG/2 ML ORAL.CONC 125 MG PO (07:24)
[2022-10-26] MEDS: 0.9 % Sodium Chloride Flush 3 ML SYRINGE IVFLUSH ×3 (07:25→19:42)
--- NOTE | 2022-10-26 09:54 | P.PNIM_ITS ---
Subjective Subjective Date of Service: 10/26/22 Review of Systems Follow up lung abscess still with pain at catheter site doing ok with his withdrawals Physical Exam Vital Signs: Vital Signs: Last Vital Signs Temp 97.8 F 10/26/22 07:17 Pulse 75 10/26/22 07:17 Resp 14 10/26/22 07:17 BP 116/57 L 10/26/22 07:17 Pulse Ox 98 10/26/22 07:17 O2 Del Method 10/26/22 07:17 BMI result Body Mass Index 20.9 Appearing in no acute distress lung sounds are clear to auscultation heart regular rate rhythm, clear S1, S2 positive bowel sounds, abdomen is soft, nontender neuro patient is alert x3, no focal deficits Objective Data Active Medications Acetaminophen (Acetaminophen 325 Mg Tablet) 650 mg PO Q6H PRN PRN Reason: Pain, Mild (Pain Scale 1-3) Last Admin: 10/26/22 04:57 Dose: 650 mg Documented By: LEXY Bisacodyl (Bisacodyl 5 Mg Tablet.) 5 mg PO DAILY PRN PRN Reason: Constipation Docusate Sodium (Docusate Sodium 100 Mg Capsule) 100 mg PO DAILY [facility] Last Admin: 10/26/22 07:23 Dose: 100 mg Documented By: BASIA Enoxaparin Sodium (Enoxaparin Sodium 40 Mg/0.4 Ml Syringe) 40 mg SUBCUT Q24H [facility] Last Admin: 10/25/22 13:39 Dose: 40 mg Documented By: BASIA Escitalopram Oxalate (Escitalopram Oxalate 5 Mg Tablet) 5 mg PO DAILY [facility] Last Admin: 10/26/22 07:23 Dose: 5 mg Documented By: BASIA Guaifenesin/Dextromethorphan (Guaifenesin Dm 100/10/5 Ml 5 Ml Syrup) 5 ml PO Q4H PRN PRN Reason: cough Last Admin: 10/26/22 04:58 Dose: 5 ml Documented By: LEXY Ceftriaxone Sodium 2 gm/ (Sodium Chloride) 50 mls @ 100 mls/hr IV Q24H [facility] Last Infusion: 10/25/22 16:15 Dose: 0 mls/hr Documented By: BASIA Lorazepam (Lorazepam 1 Mg Tablet) 1 mg PO TID PRN PRN Reason: anxiety Last Admin: 10/26/22 03:39 Dose: 1 mg Documented By: LEXY Methadone HCl (Methadone Hcl 20 Mg/2 Ml Oral.Conc) 125 mg PO DAILY [facility] Last Admin: 10/26/22 07:24 Dose: 125 mg Documented By: BASIA Nicotine Polacrilex (Nicotine Polacrilex 2 Mg Gum) 2 mg BUCCAL Q2H PRN PRN Reason: Nicotine Cravings Ondansetron HCl (Ondansetron Hcl 4 Mg/2 Ml Vial) 4 mg IVPUSH Q8H PRN PRN Reason: Nausea and Vomiting Oxycodone HCl (Oxycodone Hcl Immed Release 5 Mg Tablet) 10 mg PO Q4H PRN PRN Reason: Pain, Severe (Pain Scale 7-10) Last Admin: 10/26/22 04:56 Dose: 10 mg Documented By: LEXY Pharmacy Consult (Consult Rx Perform Med Rec) 1 each MISCELLANE ONCE PRN PRN Reason: Consult order Polyethylene Glycol (Polyethylene Glycol 3350 17 Gm Powd.Pack) 17 gm PO DAILY PRN PRN Reason: Constipation Last Admin: 10/23/22 10:54 Dose: 17 gm Documented By: CLAUDETTE Sodium Chloride (0.9 % Sodium Chloride Flush 3 Ml Syringe) [facility] Last Admin: 10/26/22 07:25 Dose: 3 ml Documented By: BASIA Labs 10/25/22 05:22 10/23/22 05:32 Microbiology Microbiology Results: Microbiology 10/18/22 16:00 Fungal Identification - Preliminary Abscess Pulmonary Culture in progress. Assessment and Plan (1) Thoracic abscess: Status: Acute Plan 32-year-old male with history of mild intermittent asthma, anxiety, agoraphobia, history of IV drug abuse last use 1.5 months ago, and opioid use disorder on methadone admitted for management of lung abscess in [facility]. RLL abscess s/p pigtail catheter placed 10/17 by IR right chest tube to BENJIE drain with purulent drainage, less than 100 ml over a few days, pulled yesterday by CT surgery repeat Chest CT 10/24 significant decrease in abscess size Initially treated with IV cefepime, vanco and flagyl - culture from aspirate growing streptococcus intermedius, changed to ceftriaxone 10/21. Will need total 3 weeks of IV abx Hepatitis C Ab positive should be considered for treatment on outpatient basis Opioid use Disorder with hx IVDA continue methadone Mild intermittent asthma-without acute exacerbation albuterol p.r.n. Normocytic anemia no previous baseline for comparison no evidence of acute blood loss iron low at 24 b12, folate wnl will check stool occult H/H has remained stable Mood pt reporting anxiety and depression continue ativan psych consult rec Lexapro 5mg daily DVT ppx - Lovenox Full code attending - dr. Crump DISPO plan for 3 weeks IV abx, CM currently looking for safe disposition for continued abx Patient requires ongoing hospitalization to treat right lung abscess with IV antibiotics Time Spent With Patient Time: Total time managing care of this patient today ____ minutes. Quality Stroke Does the patient have a stroke diagnosis?: No VTE Prior VTE?: No VTE Risk Level:: Medical - moderate - high VTE Device Contraindication: Treatment Not Indicated VTE Drug Contraindication: N/A - Med Ordered
--- NOTE | 2022-10-26 13:58 | MHC.CM.PN ---
EMR REVIEWED, CM CONTACTED DANICA TURNER AT [facility] AYT 1:50PM [phone] AND PROVIDED UPDATES RE CHEST TUBE REMOVAL AND DURATION OF IV ABX, PER JOHNNY THEY HAVE NO AVAILABLE BEDS AT THIS TIME HOWEVER WILL CONTACT CM WHEN BED OPENS UP, [facility] CONT'S TO HAVE NO BEDS AVAILABLE AND CM HAS UPDATED HIGH VIEW/VANTAGE W/REMOVAL OF CHEST TUBE, CM AWAITING RESPONSE AND WILL CONT TO FOLLOW.
[2022-10-26] MEDS: Enoxaparin Sodium 40 MG/0.4 ML SYRINGE SUBCUT (15:03)
[2022-10-26] MEDS: cefTRIAXone sodium 2 GM in 0.9 % Sodium Chloride 50 ML IV (15:03)
[2022-10-26 15:36] VITALS: BP 116/60; PULSE 88; RESP 16; TEMP 36.9; O2SAT 96
[2022-10-26 19:35] VITALS: BP 121/74; PULSE 114; RESP 16; TEMP 37.3; O2SAT 96
--- NOTE | 2022-10-27 00:08 | PM.IDPN ---
Subjective Subjective Date of Service: 11/23/22 Critical Care Time (minutes): 15 Comment: he has no complaints Objective Data Labs 10/25/22 05:22 10/23/22 05:32 Microbiology Microbiology Results: Microbiology 10/18/22 16:00 Abscess Pulmonary Fungal Identification - Preliminary Culture in progress. 10/18/22 16:00 Abscess Pulmonary Direct Acid Fast Bacilli Smear - Final 10/18/22 16:00 Abscess Pulmonary Gram Stain - Final 10/18/22 16:00 Abscess Pulmonary Routine Culture - Final Streptococcus intermedius 10/18/22 16:00 Abscess Pulmonary Anaerobic Culture - Final Prevotella oralis group 10/17/22 10:51 Blood - Venous Blood Culture - Final No growth after 5 days. 10/17/22 10:41 Blood - Venous Blood Culture - Final No growth after 5 days. Physical Exam Vital Signs: Vital Signs: Last Vital Signs Temp 99.2 F 10/26/22 19:35 Pulse 114 H 10/26/22 19:35 Resp 16 10/26/22 19:35 BP 121/74 10/26/22 19:35 Pulse Ox 96 10/26/22 19:35 O2 Del Method 10/26/22 19:35 BMI result Body Mass Index 20.9 Const: General: cooperative Resp: Effort & Inspection: normal respiratory effort Cardio: Rate: regular rate Rhythm: regular rhythm GI: Palpation (GI): Soft to palpation and nontender Assessment and Plan Assessment and plan (1) Abscess of lower lobe of right lung without pneumonia: Status: Acute Plan Lung abscess He has strep intermedius and prevotella oralis Would add flagyl to CTX ,can be po, Repeat CT one week, 2-3 week IV Ceftriaxone depends on progress. Time Spent With Patient Time: Total time managing care of this patient today ____ minutes.
[2022-10-27 03:48] VITALS: BP 106/56; PULSE 92; RESP 18; TEMP 37.3; O2SAT 100
[2022-10-27] MEDS: guaiFENesin DM 100/10/5 ML 5 ML SYRUP PO ×2 (05:49→19:56)
[2022-10-27] MEDS: oxyCODONE HCl Immed Release 5 MG TABLET 10 MG PO ×3 (05:49→19:56)
[2022-10-27] MEDS: LORazepam 1 MG TABLET PO ×3 (05:49→23:51)
[2022-10-27] MEDS: Acetaminophen 325 MG TABLET 650 MG PO ×2 (05:49→19:55)
[2022-10-27 07:37] VITALS: BP 109/70; PULSE 97; RESP 20; TEMP 36.4; O2SAT 97
[2022-10-27] MEDS: Docusate Sodium 100 MG CAPSULE PO (07:49)
[2022-10-27] MEDS: metroNIDAZOLE 500 MG TABLET PO ×3 (07:49→23:51)
[2022-10-27] MEDS: Escitalopram Oxalate 5 MG TABLET PO (07:49)
[2022-10-27] MEDS: methADONE HCl 20 MG/2 ML ORAL.CONC 125 MG PO (07:50)
[2022-10-27] MEDS: 0.9 % Sodium Chloride Flush 3 ML SYRINGE IVFLUSH ×3 (07:52→19:56)
--- NOTE | 2022-10-27 09:55 | HO.PM.IMPN ---
Subjective Subjective Date of Service: 10/27/22 Interval History: seen and examined this morning follow up for lung abscess having some residual pain at site where catheter was removed Review of Systems Review of Systems: Yes all other systems are reviewed and are negative Constitutional Constitutional: Denies chills and Denies fever(s) Cardiovascular Cardiovascular: Denies chest pain and Denies palpitations Respiratory Respiratory: Denies cough Gastrointestinal Gastrointestinal: Denies abdominal pain Endocrine Endocrine: Denies palpitations Physical Exam Vital Signs: Vital Signs: Last Vital Signs Temp 97.6 F 10/27/22 07:37 Pulse 97 10/27/22 07:37 Resp 20 10/27/22 07:37 BP 109/70 10/27/22 07:37 Pulse Ox 97 10/27/22 07:37 O2 Del Method 10/27/22 07:37 BMI result Body Mass Index 20.9 Const: General: cooperative, comfortable, alert and awake Nutritional Appearance: thin Orientation/consciousness: patient oriented x3 Resp: Other: dim right base; otherwise clear Effort & Inspection: normal respiratory effort and able to speak in complete sentences Cardio: Rate: regular rate Heart sounds: S1 normal heart sound present and S2 normal heart sound present GI: Inspection: No distended Palpation (GI): Soft to palpation Neuro: General: patient oriented x3 and CN's II-XI intact bilaterally Extrem: General: Yes no pedal edema Objective Data Active Medications Acetaminophen (Acetaminophen 325 Mg Tablet) 650 mg PO Q6H PRN PRN Reason: Pain, Mild (Pain Scale 1-3) Last Admin: 10/27/22 05:49 Dose: 650 mg Documented By: LEXY Bisacodyl (Bisacodyl 5 Mg Tablet.) 5 mg PO DAILY PRN PRN Reason: Constipation Docusate Sodium (Docusate Sodium 100 Mg Capsule) 100 mg PO DAILY [facility] Last Admin: 10/27/22 07:49 Dose: 100 mg Documented By: MARTHA Enoxaparin Sodium (Enoxaparin Sodium 40 Mg/0.4 Ml Syringe) 40 mg SUBCUT Q24H [facility] Last Admin: 10/26/22 15:03 Dose: 40 mg Documented By: MARTHA Escitalopram Oxalate (Escitalopram Oxalate 5 Mg Tablet) 5 mg PO DAILY [facility] Last Admin: 10/27/22 07:49 Dose: 5 mg Documented By: MARTHA Guaifenesin/Dextromethorphan (Guaifenesin Dm 100/10/5 Ml 5 Ml Syrup) 5 ml PO Q4H PRN PRN Reason: cough Last Admin: 10/27/22 05:49 Dose: 5 ml Documented By: LEXY Ceftriaxone Sodium 2 gm/ (Sodium Chloride) 50 mls @ 100 mls/hr IV Q24H [facility] Last Infusion: 10/26/22 15:45 Dose: 0 mls/hr Documented By: MARTHA Lorazepam (Lorazepam 1 Mg Tablet) 1 mg PO TID PRN PRN Reason: anxiety Last Admin: 10/27/22 05:49 Dose: 1 mg Documented By: LEXY Methadone HCl (Methadone Hcl 20 Mg/2 Ml Oral.Conc) 125 mg PO DAILY [facility] Last Admin: 10/27/22 07:50 Dose: 125 mg Documented By: MARTHA Metronidazole (Metronidazole 500 Mg Tablet) 500 mg PO Q8H [facility] Last Admin: 10/27/22 07:49 Dose: 500 mg Documented By: MARTHA Nicotine Polacrilex (Nicotine Polacrilex 2 Mg Gum) 2 mg BUCCAL Q2H PRN PRN Reason: Nicotine Cravings Ondansetron HCl (Ondansetron Hcl 4 Mg/2 Ml Vial) 4 mg IVPUSH Q8H PRN PRN Reason: Nausea and Vomiting Oxycodone HCl (Oxycodone Hcl Immed Release 5 Mg Tablet) 10 mg PO Q4H PRN PRN Reason: Pain, Severe (Pain Scale 7-10) Last Admin: 10/27/22 05:49 Dose: 10 mg Documented By: LEXY Pharmacy Consult (Consult Rx Perform Med Rec) 1 each MISCELLANE ONCE PRN PRN Reason: Consult order Polyethylene Glycol (Polyethylene Glycol 3350 17 Gm Powd.Pack) 17 gm PO DAILY PRN PRN Reason: Constipation Last Admin: 10/23/22 10:54 Dose: 17 gm Documented By: CLAUDETTE Sodium Chloride (0.9 % Sodium Chloride Flush 3 Ml Syringe) 3 ml IVFLUSH QSHIFT [facility] Last Admin: 10/27/22 07:52 Dose: 3 ml Documented By: MARTHA Labs 10/25/22 05:22 10/23/22 05:32 Assessment and Plan (1) Abscess of lower lobe of right lung without pneumonia: Status: Acute Plan 32-year-old male with history of mild intermittent asthma, anxiety, agoraphobia, history of IV drug abuse last use 1.5 months ago, and opioid use disorder on methadone admitted for management of lung abscess in [facility]. RLL abscess s/p pigtail catheter placed 10/17 by IR right chest tube to BENJIE drain with purulent drainage, less than 100 ml over a few days, pulled 10/[address] surgery repeat Chest CT 10/24 significant decrease in abscess size Initially treated with IV cefepime, vanco and flagyl - culture from aspirate growing streptococcus intermedius & prevotella oralis, changed to ceftriaxone 10/21, po flagyl added 10/27; Will need total 3 weeks of IV abx plan to repeat chest CT 10/31 at which time total duration of abx will be determined Hepatitis C Ab positive viral load low outpatient follow up Opioid use Disorder with hx IVDA continue methadone Mild intermittent asthma-without acute exacerbation albuterol p.r.n. Normocytic anemia no previous baseline for comparison no evidence of acute blood loss iron low at 24 b12, folate wnl will check stool occult H/H has remained stable imaging showing splenomegaly consider outpatient hematology eval splenomegaly likely result of current infection outpatient follow up Mood pt reporting anxiety and depression continue ativan psych consult rec Lexapro 5mg daily DVT ppx - Lovenox Full code attending - dr. Theron GUEVARA plan for 3 weeks IV abx, CM currently looking for safe disposition for continued abx Patient requires ongoing hospitalization to treat right lung abscess with IV antibiotics Time Spent With Patient Time: Total time managing care of this patient today ____ minutes. Quality Stroke Does the patient have a stroke diagnosis?: No VTE Prior VTE?: No VTE Risk Level:: Medical - moderate - high VTE Device Contraindication: Treatment Not Indicated VTE Drug Contraindication: N/A - Med Ordered
[2022-10-27 15:24] VITALS: BP 114/73; PULSE 108; RESP 18; TEMP 37.4; O2SAT 96
[2022-10-27] MEDS: Enoxaparin Sodium 40 MG/0.4 ML SYRINGE SUBCUT (15:39)
[2022-10-27] MEDS: cefTRIAXone sodium 2 GM in 0.9 % Sodium Chloride 50 ML IV (15:39)
[2022-10-27 19:24] VITALS: BP 118/71; PULSE 112; RESP 18; TEMP 37.3; O2SAT 96
[2022-10-27 20:00] VITALS: BP 118/71; PULSE 112; RESP 18; TEMP 37.3; O2SAT 96
[2022-10-28 03:33] VITALS: BP 111/62; PULSE 76; RESP 18; TEMP 36.5; O2SAT 98
[2022-10-28] MEDS: oxyCODONE HCl Immed Release 5 MG TABLET 10 MG PO ×3 (07:10→19:36)
[2022-10-28] MEDS: Escitalopram Oxalate 5 MG TABLET PO (07:11)
[2022-10-28] MEDS: LORazepam 1 MG TABLET PO ×3 (07:11→23:31)
[2022-10-28] MEDS: metroNIDAZOLE 500 MG TABLET PO ×3 (07:11→23:31)
[2022-10-28] MEDS: Docusate Sodium 100 MG CAPSULE PO (07:11)
[2022-10-28] MEDS: methADONE HCl 20 MG/2 ML ORAL.CONC 125 MG PO (07:12)
[2022-10-28] MEDS: 0.9 % Sodium Chloride Flush 3 ML SYRINGE IVFLUSH ×2 (07:14→15:57)
[2022-10-28 08:00] VITALS: BP 100/63; PULSE 92; RESP 16; TEMP 36; O2SAT 96
[2022-10-28 15:14] VITALS: BP 116/58; PULSE 90; RESP 16; TEMP 36.9; O2SAT 98
--- NOTE | 2022-10-28 15:37 | P.PNIM_ITS ---
Subjective Subjective Date of Service: 10/28/22 Interval History: seen and examined this morning follow up for empyema no changes. some pain with movement. no shortness of breath Review of Systems Review of Systems: Yes all other systems are reviewed and are negative Constitutional Constitutional: Denies chills and Denies fever(s) Cardiovascular Cardiovascular: Denies chest pain, Denies palpitations and Denies dyspnea Respiratory Respiratory: Denies cough and Denies dyspnea Gastrointestinal Gastrointestinal: Denies abdominal pain, Denies nausea and Denies vomiting Endocrine Endocrine: Denies palpitations Physical Exam Vital Signs: Vital Signs: Last Vital Signs Temp 98.4 F 10/28/22 15:14 Pulse 90 10/28/22 15:14 Resp 16 10/28/22 15:14 BP 116/58 L 10/28/22 15:14 Pulse Ox 98 10/28/22 15:14 O2 Del Method 10/28/22 15:14 BMI result Body Mass Index 20.9 Const: General: cooperative, comfortable, alert and awake Nutritional Appearance: thin Orientation/consciousness: patient oriented x3 Resp: Other: dim right base; otherwise clear Effort & Inspection: normal respiratory effort and able to speak in complete sentences Cardio: Rate: regular rate Heart sounds: S1 normal heart sound present and S2 normal heart sound present GI: Inspection: No distended Palpation (GI): Soft to palpation Neuro: General: patient oriented x3 and CN's II-XI intact bilaterally Extrem: General: Yes no pedal edema Objective Data Active Medications Acetaminophen (Acetaminophen 325 Mg Tablet) 650 mg PO Q6H PRN PRN Reason: Pain, Mild (Pain Scale 1-3) Last Admin: 10/27/22 19:55 Dose: 650 mg Documented By: LEXY Bisacodyl (Bisacodyl 5 Mg Tablet.Dr) 5 mg PO DAILY PRN PRN Reason: Constipation Docusate Sodium (Docusate Sodium 100 Mg Capsule) 100 mg PO DAILY [facility] Last Admin: 10/28/22 07:11 Dose: 100 mg Documented By: CLAUDETTE Enoxaparin Sodium (Enoxaparin Sodium 40 Mg/0.4 Ml Syringe) 40 mg SUBCUT Q24H [facility] Last Admin: 10/27/22 15:39 Dose: 40 mg Documented By: MARTHA Escitalopram Oxalate (Escitalopram Oxalate 5 Mg Tablet) 5 mg PO DAILY [facility] Last Admin: 10/28/22 07:11 Dose: 5 mg Documented By: CLAUDETTE Guaifenesin/Dextromethorphan (Guaifenesin Dm 100/10/5 Ml 5 Ml Syrup) 5 ml PO Q4H PRN PRN Reason: cough Last Admin: 10/27/22 19:56 Dose: 5 ml Documented By: LEXY Ceftriaxone Sodium 2 gm/ (Sodium Chloride) 50 mls @ 100 mls/hr IV Q24H [facility] Last Infusion: 10/27/22 16:13 Dose: 0 mls/hr Documented By: MARTHA Lorazepam (Lorazepam 1 Mg Tablet) 1 mg PO TID PRN PRN Reason: anxiety Last Admin: 10/28/22 14:42 Dose: 1 mg Documented By: MICHELLE Methadone HCl (Methadone Hcl 20 Mg/2 Ml Oral.Conc) 125 mg PO DAILY [facility] Last Admin: 10/28/22 07:12 Dose: 125 mg Documented By: CLAUDETTE Metronidazole (Metronidazole 500 Mg Tablet) 500 mg PO Q8H [facility] Last Admin: 10/28/22 07:11 Dose: 500 mg Documented By: CLAUDETTE Nicotine Polacrilex (Nicotine Polacrilex 2 Mg Gum) 2 mg BUCCAL Q2H PRN PRN Reason: Nicotine Cravings Ondansetron HCl (Ondansetron Hcl 4 Mg/2 Ml Vial) 4 mg IVPUSH Q8H PRN PRN Reason: Nausea and Vomiting Oxycodone HCl (Oxycodone Hcl Immed Release 5 Mg Tablet) 10 mg PO Q4H PRN PRN Reason: Pain, Severe (Pain Scale 7-10) Last Admin: 10/28/22 14:42 Dose: 10 mg Documented By: MICHELLE Pharmacy Consult (Consult Rx Perform Med Rec) 1 each MISCELLANE ONCE PRN PRN Reason: Consult order Polyethylene Glycol (Polyethylene Glycol 3350 17 Gm Powd.Pack) 17 gm PO DAILY PRN PRN Reason: Constipation Last Admin: 10/23/22 10:54 Dose: 17 gm Documented By: CLAUDETTE Sodium Chloride (0.9 % Sodium Chloride Flush 3 Ml Syringe) 3 ml IVFLUSH QSHIFT [facility] Last Admin: 10/28/22 07:14 Dose: 3 ml Documented By: CLAUDETTE Labs 10/25/22 05:22 01/29/23 05:32 Microbiology Microbiology Results: Microbiology 10/18/22 16:00 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 RLL abscess s/p pigtail catheter placed 10/17 by IR right chest tube to BENJIE drain with purulent drainage, less than 100 ml over a few days, pulled 10/[address] surgery repeat Chest CT 10/24 significant decrease in abscess size Initially treated with IV cefepime, vanco and flagyl - culture from aspirate growing streptococcus intermedius & prevotella oralis, changed to ceftriaxone 10/21, po flagyl added 10/27 plan to repeat chest CT 10/31 at which time total duration of abx will be determined Hepatitis C Ab positive viral load low outpatient follow up Opioid use Disorder with hx IVDA continue methadone Mild intermittent asthma-without acute exacerbation albuterol p.r.n. Normocytic anemia no previous baseline for comparison no evidence of acute blood loss iron low at 24 b12, folate wnl will check stool occult H/H has remained stable imaging showing splenomegaly consider outpatient hematology eval splenomegaly likely result of current infection US negative for splenic vein/portal vein thrombosis outpatient follow up Mood pt reporting anxiety and depression continue ativan psych consult rec Lexapro 5mg daily DVT ppx - Lovenox Full code attending - dr. Theron GUEVARA plan for 3 weeks IV abx, currently looking for safe disposition for continued abx Patient requires ongoing hospitalization to treat right lung abscess with IV antibiotics Time Spent With Patient Time: Total time managing care of this patient today ____ minutes. Quality Stroke Does the patient have a stroke diagnosis?: No VTE Prior VTE?: No VTE Risk Level:: Medical - moderate - high VTE Device Contraindication: Treatment Not Indicated VTE Drug Contraindication: N/A - Med Ordered
[2022-10-28] MEDS: Enoxaparin Sodium 40 MG/0.4 ML SYRINGE SUBCUT (15:55)
[2022-10-28] MEDS: cefTRIAXone sodium 2 GM in 0.9 % Sodium Chloride 50 ML IV (15:56)
[2022-10-28] MEDS: Acetaminophen 325 MG TABLET 650 MG PO (19:37)
[2022-10-28 19:44] VITALS: BP 115/71; PULSE 106; RESP 15; TEMP 37.5; O2SAT 97
[2022-10-29 01:58] VITALS: BP 116/56; PULSE 73; RESP 18; TEMP 36.2; O2SAT 98
[2022-10-29 06:39] LABS: Hematocrit 29.2 % (42.0-52.0); Hemoglobin 8.7 g/dl (14.0-18.0); Mean Corpuscular HGB Conc 29.8 g/dl (31.0-36.0); Mean Corpuscular Hemoglobin 25.4 pg (27.0-33.0); Mean Corpuscular Volume 85.1 fL (80.0-98.0); Mean Platelet Volume 8.5 fL (9.4-12.4); Platelet Count 319 X10*3/uL (160-400); Red Blood Count 3.43 X10*6/uL (4.60-5.80); White Blood Count 6.9 X10*3/uL (4.8-10.8)
[2022-10-29 06:58] LABS: Anion Gap 8 (12-20); Blood Urea Nitrogen 16 mg/dL (9-16); Calcium 8.5 mg/dL (8.4-10.2); Carbon Dioxide 34 mmol/L (22-29); Chloride 101 mmol/L (96-108); Estimated Glomerular Filt Rate > 60; Glucose Random 96 mg/dL (60-115); Potassium 4.5 mmol/L (3.3-5.1); Sodium 138 mmol/L (135-145)
[2022-10-29 08:00] VITALS: BP 109/67; PULSE 86; RESP 17; TEMP 37.3; O2SAT 97
[2022-10-29] MEDS: methADONE HCl 20 MG/2 ML ORAL.CONC 125 MG PO (09:22)
[2022-10-29] MEDS: metroNIDAZOLE 500 MG TABLET PO ×3 (09:23→23:35)
[2022-10-29] MEDS: Escitalopram Oxalate 5 MG TABLET PO (09:23)
[2022-10-29] MEDS: Docusate Sodium 100 MG CAPSULE PO (09:23)
[2022-10-29] MEDS: 0.9 % Sodium Chloride Flush 3 ML SYRINGE IVFLUSH ×3 (09:24→19:31)
[2022-10-29] MEDS: oxyCODONE HCl Immed Release 5 MG TABLET 10 MG PO (09:28)
[2022-10-29] MEDS: LORazepam 1 MG TABLET PO ×2 (09:28→17:33)
--- NOTE | 2022-10-29 11:54 | P.PNIM_ITS ---
Subjective Subjective Date of Service: 10/29/22 Interval History: seen and examined this morning follow up for empyema no changes. some pain with movement. no shortness of breath Review of Systems Review of Systems: Yes all other systems are reviewed and are negative Constitutional Constitutional: Denies chills and Denies fever(s) Cardiovascular Cardiovascular: Denies chest pain, Denies palpitations and Denies dyspnea Respiratory Respiratory: Denies cough and Denies dyspnea Gastrointestinal Gastrointestinal: Denies abdominal pain, Denies nausea and Denies vomiting Endocrine Endocrine: Denies palpitations Physical Exam Vital Signs: Vital Signs: Last Vital Signs Temp 99.1 F 10/29/22 08:00 Pulse 86 10/29/22 08:00 Resp 17 10/29/22 08:00 BP 109/67 10/29/22 08:00 Pulse Ox 97 10/29/22 08:00 O2 Del Method 10/29/22 08:00 BMI result Body Mass Index 20.9 Appearing in no acute distress lung sounds are clear to auscultation heart regular rate rhythm, clear S1, S2 positive bowel sounds, abdomen is soft, nontender neuro patient is alert x3, no focal deficits Objective Data Active Medications Acetaminophen (Acetaminophen 325 Mg Tablet) 650 mg PO Q6H PRN PRN Reason: Pain, Mild (Pain Scale 1-3) Last Admin: 10/28/22 19:37 Dose: 650 mg Documented By: KENDELL Bisacodyl (Bisacodyl 5 Mg Tablet.) 5 mg PO DAILY PRN PRN Reason: Constipation Docusate Sodium (Docusate Sodium 100 Mg Capsule) 100 mg PO DAILY [facility] Last Admin: 10/29/22 09:23 Dose: 100 mg Documented By: TORRES Enoxaparin Sodium (Enoxaparin Sodium 40 Mg/0.4 Ml Syringe) 40 mg SUBCUT Q24H [facility] Last Admin: 10/28/22 15:55 Dose: 40 mg Documented By: MARTHA Escitalopram Oxalate (Escitalopram Oxalate 5 Mg Tablet) 5 mg PO DAILY [facility] Last Admin: 10/29/22 09:23 Dose: 5 mg Documented By: TORRES Guaifenesin/Dextromethorphan (Guaifenesin Dm 100/10/5 Ml 5 Ml Syrup) 5 ml PO Q4H PRN PRN Reason: cough Last Admin: 10/27/22 19:56 Dose: 5 ml Documented By: LEXY Ceftriaxone Sodium 2 gm/ (Sodium Chloride) 50 mls @ 100 mls/hr IV Q24H [facility] Last Infusion: 10/28/22 17:07 Dose: 0 mls/hr Documented By: MARTHA Lorazepam (Lorazepam 1 Mg Tablet) 1 mg PO TID PRN PRN Reason: anxiety Last Admin: 10/29/22 09:28 Dose: 1 mg Documented By: TORRES Methadone HCl (Methadone Hcl 20 Mg/2 Ml Oral.Conc) 125 mg PO DAILY [facility] Last Admin: 10/29/22 09:22 Dose: 125 mg Documented By: TORRES Metronidazole (Metronidazole 500 Mg Tablet) 500 mg PO Q8H [facility] Last Admin: 10/29/22 09:23 Dose: 500 mg Documented By: TORRES Nicotine Polacrilex (Nicotine Polacrilex 2 Mg Gum) 2 mg BUCCAL Q2H PRN PRN Reason: Nicotine Cravings Ondansetron HCl (Ondansetron Hcl 4 Mg/2 Ml Vial) 4 mg IVPUSH Q8H PRN PRN Reason: Nausea and Vomiting Pharmacy Consult (Consult Rx Perform Med Rec) 1 each MISCELLANE ONCE PRN PRN Reason: Consult order Polyethylene Glycol (Polyethylene Glycol 3350 17 Gm Powd.Pack) 17 gm PO DAILY PRN PRN Reason: Constipation Last Admin: 10/23/22 10:54 Dose: 17 gm Documented By: CLAUDETTE Sodium Chloride (0.9 % Sodium Chloride Flush 3 Ml Syringe) 3 ml IVFLUSH QSHIFT [facility] Last Admin: 10/29/22 09:24 Dose: 3 ml Documented By: TORRES Labs 10/29/22 06:23 10/29/22 06:23 Labs: Laboratory Results - last 24 hr 10/29/22 10/29/22 06:23 06:23 MCV 85.1 MCH 25.4 L MCHC 29.8 L RDW 16.0 Plt Count 319 MPV 8.5 L Absolute Nucleated RBC 0.000 Nucleated RBC % (auto) 0.0 Anion Gap 8 L Estim Creat Clear Calc 157.0 Estimated GFR > 60 Random Glucose 96 Calcium 8.5 D Microbiology Microbiology Results: Microbiology 10/18/22 16:00 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 RLL abscess s/p pigtail catheter placed 10/17 by IR right chest tube to BENJIE drain with purulent drainage, less than 100 ml over a few days, pulled 10/[address] surgery repeat Chest CT 10/24 significant decrease in abscess size Initially treated with IV cefepime, vanco and flagyl - culture from aspirate growing streptococcus intermedius & prevotella oralis, changed to ceftriaxone 10/21, po flagyl added 10/27 plan to repeat chest CT 10/31 at which time total duration of abx will be determined Hepatitis C Ab positive viral load low outpatient follow up Opioid use Disorder with hx IVDA continue methadone Mild intermittent asthma-without acute exacerbation albuterol p.r.n. Normocytic anemia no previous baseline for comparison no evidence of acute blood loss iron low at 24 b12, folate wnl will check stool occult H/H has remained stable imaging showing splenomegaly consider outpatient hematology eval splenomegaly likely result of current infection US negative for splenic vein/portal vein thrombosis outpatient follow up Mood pt reporting anxiety and depression continue ativan psych consult rec Lexapro 5mg daily DVT ppx - Lovenox Full code attending - dr. Elba GUEVARA plan for 3 weeks IV abx, CM currently looking for safe disposition for continued abx Patient requires ongoing hospitalization to treat right lung abscess with IV antibiotics Time Spent With Patient Time: Total time managing care of this patient today ____ minutes. Quality Stroke Does the patient have a stroke diagnosis?: No VTE Prior VTE?: No VTE Risk Level:: Medical - moderate - high VTE Device Contraindication: Treatment Not Indicated VTE Drug Contraindication: N/A - Med Ordered
[2022-10-29] MEDS: Enoxaparin Sodium 40 MG/0.4 ML SYRINGE SUBCUT (14:42)
[2022-10-29 16:00] VITALS: BP 132/80; PULSE 122; RESP 16; TEMP 36.4; O2SAT 96
[2022-10-29] MEDS: cefTRIAXone sodium 2 GM in 0.9 % Sodium Chloride 50 ML IV (16:11)
[2022-10-29 16:43] VITALS: PULSE 102
[2022-10-29 20:00] VITALS: BP 122/67; PULSE 98; RESP 16; TEMP 36.6; O2SAT 96
[2022-10-30 03:32] VITALS: BP 107/53; PULSE 78; RESP 20; TEMP 37.2; O2SAT 97
[2022-10-30] MEDS: LORazepam 1 MG TABLET PO ×2 (05:46→16:04)
[2022-10-30 07:59] VITALS: BP 113/67; PULSE 100; RESP 18; TEMP 36.8; O2SAT 97
[2022-10-30] MEDS: Acetaminophen 325 MG TABLET 650 MG PO (08:07)
[2022-10-30] MEDS: Docusate Sodium 100 MG CAPSULE PO (08:07)
[2022-10-30] MEDS: Escitalopram Oxalate 5 MG TABLET PO (08:08)
[2022-10-30] MEDS: metroNIDAZOLE 500 MG TABLET PO ×3 (08:08→23:25)
[2022-10-30] MEDS: methADONE HCl 20 MG/2 ML ORAL.CONC 125 MG PO (08:08)
[2022-10-30] MEDS: 0.9 % Sodium Chloride Flush 3 ML SYRINGE IVFLUSH ×3 (08:08→19:23)
--- NOTE | 2022-10-30 08:57 | HO.PM.IMPN ---
Subjective Subjective Date of Service: 10/30/22 Interval History: seen and examined this morning follow up for empyema no changes.pain resolved, no sob Review of Systems Review of Systems: Yes all other systems are reviewed and are negative Constitutional Constitutional: Denies chills and Denies fever(s) Cardiovascular Cardiovascular: Denies chest pain, Denies palpitations and Denies dyspnea Respiratory Respiratory: Denies cough and Denies dyspnea Gastrointestinal Gastrointestinal: Denies abdominal pain, Denies nausea and Denies vomiting Endocrine Endocrine: Denies palpitations Physical Exam Vital Signs: Vital Signs: Last Vital Signs Temp 98.2 F 10/30/22 07:59 Pulse 100 10/30/22 07:59 Resp 18 10/30/22 07:59 BP 113/67 10/30/22 07:59 Pulse Ox 97 10/30/22 07:59 O2 Del Method 10/30/22 07:59 BMI result Body Mass Index 20.9 Appearing in no acute distress lung sounds are clear to auscultation heart regular rate rhythm, clear S1, S2 positive bowel sounds, abdomen is soft, nontender neuro patient is alert x3, no focal deficits Objective Data Active Medications Acetaminophen (Acetaminophen 325 Mg Tablet) 650 mg PO Q6H PRN PRN Reason: Pain, Mild (Pain Scale 1-3) Last Admin: 10/30/22 08:07 Dose: 650 mg Documented By: TORRES Bisacodyl (Bisacodyl 5 Mg Tablet.) 5 mg PO DAILY PRN PRN Reason: Constipation Docusate Sodium (Docusate Sodium 100 Mg Capsule) 100 mg PO DAILY [facility] Last Admin: 10/30/22 08:07 Dose: 100 mg Documented By: TORRES Enoxaparin Sodium (Enoxaparin Sodium 40 Mg/0.4 Ml Syringe) 40 mg SUBCUT Q24H [facility] Last Admin: 10/29/22 14:42 Dose: 40 mg Documented By: TORRES Escitalopram Oxalate (Escitalopram Oxalate 5 Mg Tablet) 5 mg PO DAILY [facility] Last Admin: 10/30/22 08:08 Dose: 5 mg Documented By: TORRES Guaifenesin/Dextromethorphan (Guaifenesin Dm 100/10/5 Ml 5 Ml Syrup) 5 ml PO Q4H PRN PRN Reason: cough Last Admin: 10/27/22 19:56 Dose: 5 ml Documented By: LEXY Ceftriaxone Sodium 2 gm/ (Sodium Chloride) 50 mls @ 100 mls/hr IV Q24H [facility] Last Infusion: 10/29/22 16:44 Dose: 0 mls/hr Documented By: TORRES Lorazepam (Lorazepam 1 Mg Tablet) 1 mg PO TID PRN PRN Reason: anxiety Last Admin: 10/30/22 05:46 Dose: 1 mg Documented By: ODRISM Methadone HCl (Methadone Hcl 20 Mg/2 Ml Oral.Conc) 125 mg PO DAILY [facility] Last Admin: 10/30/22 08:08 Dose: 125 mg Documented By: TORRES Metronidazole (Metronidazole 500 Mg Tablet) 500 mg PO Q8H [facility] Last Admin: 10/30/22 08:08 Dose: 500 mg Documented By: TORRES Nicotine Polacrilex (Nicotine Polacrilex 2 Mg Gum) 2 mg BUCCAL Q2H PRN PRN Reason: Nicotine Cravings Ondansetron HCl (Ondansetron Hcl 4 Mg/2 Ml Vial) 4 mg IVPUSH Q8H PRN PRN Reason: Nausea and Vomiting Pharmacy Consult (Consult Rx Perform Med Rec) 1 each MISCELLANE ONCE PRN PRN Reason: Consult order Polyethylene Glycol (Polyethylene Glycol 3350 17 Gm Powd.Pack) 17 gm PO DAILY PRN PRN Reason: Constipation Last Admin: 10/23/22 10:54 Dose: 17 gm Documented By: CLAUDETTE Sodium Chloride (0.9 % Sodium Chloride Flush 3 Ml Syringe) 3 ml IVFLUSH QSHIFT [facility] Last Admin: 10/30/22 08:08 Dose: 3 ml Documented By: TORRES Labs 10/29/22 06:23 10/29/22 06:23 Assessment and Plan (1) Abscess of lower lobe of right lung without pneumonia: Status: Acute Plan 32-year-old male with history of mild intermittent asthma, anxiety, agoraphobia, history of IV drug abuse last use 1.5 months ago, and opioid use disorder on methadone admitted for management of lung abscess in [facility]. RLL abscess s/p pigtail catheter placed 10/17 by IR right chest tube to BENJIE drain pulled 10/[address] surgery Initially treated with IV cefepime, vanco and flagyl - culture from aspirate growing streptococcus intermedius & prevotella oralis, changed to ceftriaxone 10/21, po flagyl added 10/27 plan to repeat chest CT 10/31 at which time total duration of abx will be determined Hepatitis C Ab positive viral load low outpatient follow up Opioid use Disorder with hx IVDA continue methadone Mild intermittent asthma-without acute exacerbation albuterol p.r.n. Normocytic anemia no previous baseline for comparison no evidence of acute blood loss iron low at 24 b12, folate wnl H/H has remained stable imaging showing splenomegaly consider outpatient hematology eval splenomegaly likely result of current infection US negative for splenic vein/portal vein thrombosis outpatient follow up Mood pt reporting anxiety and depression continue ativan psych consult rec Lexapro 5mg daily DVT ppx - Lovenox Full code attending - dr. Arreola DISPO plan for 3 weeks IV abx, CM currently looking for safe disposition for continued abx Patient requires ongoing hospitalization to treat right lung abscess with IV antibiotics Time Spent With Patient Time: Total time managing care of this patient today ____ minutes. Quality Stroke Does the patient have a stroke diagnosis?: No VTE Prior VTE?: No VTE Risk Level:: Medical - moderate - high VTE Device Contraindication: Treatment Not Indicated VTE Drug Contraindication: N/A - Med Ordered
[2022-10-30] MEDS: Enoxaparin Sodium 40 MG/0.4 ML SYRINGE SUBCUT (15:32)
[2022-10-30] MEDS: cefTRIAXone sodium 2 GM in 0.9 % Sodium Chloride 50 ML IV (15:33)
[2022-10-30 16:00] VITALS: BP 119/75; PULSE 96; RESP 17; TEMP 37; O2SAT 96
[2022-10-30 19:26] VITALS: BP 100/59; PULSE 99; RESP 16; TEMP 36.4; O2SAT 97
[2022-10-31 03:45] VITALS: BP 116/71; PULSE 84; RESP 18; TEMP 36.7; O2SAT 95
[2022-10-31] MEDS: LORazepam 1 MG TABLET PO (04:20)
[2022-10-31 06:52] VITALS: BP 122/81; PULSE 88; RESP 16; TEMP 36.1; O2SAT 98
[2022-10-31] MEDS: Escitalopram Oxalate 5 MG TABLET PO (07:59)
[2022-10-31] MEDS: metroNIDAZOLE 500 MG TABLET PO ×3 (07:59→23:55)
[2022-10-31] MEDS: 0.9 % Sodium Chloride Flush 3 ML SYRINGE IVFLUSH ×3 (07:59→23:55)
[2022-10-31] MEDS: methADONE HCl 20 MG/2 ML ORAL.CONC 125 MG PO (07:59)
[2022-10-31] MEDS: Docusate Sodium 100 MG CAPSULE PO (07:59)
--- NOTE | 2022-10-31 08:30 | P.PNIM_ITS ---
Subjective Subjective Date of Service: 10/31/22 Interval History: seen and examined this morning follow up for empyema pain with inspiration feeling depressed and anxious Review of Systems Review of Systems: Yes all other systems are reviewed and are negative Constitutional Constitutional: Denies chills and Denies fever(s) Cardiovascular Cardiovascular: Denies chest pain, Denies palpitations and Denies dyspnea Respiratory Respiratory: Denies cough and Denies dyspnea Gastrointestinal Gastrointestinal: Denies abdominal pain, Denies nausea and Denies vomiting Endocrine Endocrine: Denies palpitations Physical Exam Vital Signs: Vital Signs: Last Vital Signs Temp 97 F 10/31/22 06:52 Pulse 88 10/31/22 06:52 Resp 16 10/31/22 06:52 BP 122/81 10/31/22 06:52 Pulse Ox 98 10/31/22 06:52 O2 Del Method 10/31/22 06:52 BMI result Body Mass Index 20.9 Appearing in no acute distress lung sounds are clear to auscultation heart regular rate rhythm, clear S1, S2 positive bowel sounds, abdomen is soft, nontender neuro patient is alert x3, no focal deficits Objective Data Active Medications Acetaminophen (Acetaminophen 325 Mg Tablet) 650 mg PO Q6H PRN PRN Reason: Pain, Mild (Pain Scale 1-3) Last Admin: 10/30/22 08:07 Dose: 650 mg Documented By: TORRES Bisacodyl (Bisacodyl 5 Mg Tablet.) 5 mg PO DAILY PRN PRN Reason: Constipation Docusate Sodium (Docusate Sodium 100 Mg Capsule) 100 mg PO DAILY [facility] Last Admin: 10/31/22 07:59 Dose: 100 mg Documented By: MICHELLE Enoxaparin Sodium (Enoxaparin Sodium 40 Mg/0.4 Ml Syringe) 40 mg SUBCUT Q24H [facility] Last Admin: 10/30/22 15:32 Dose: 40 mg Documented By: TORRES Escitalopram Oxalate (Escitalopram Oxalate 5 Mg Tablet) 5 mg PO DAILY [facility] Last Admin: 10/31/22 07:59 Dose: 5 mg Documented By: MICHELLE Guaifenesin/Dextromethorphan (Guaifenesin Dm 100/10/5 Ml 5 Ml Syrup) 5 ml PO Q4H PRN PRN Reason: cough Last Admin: 10/27/22 19:56 Dose: 5 ml Documented By: LEXY Ceftriaxone Sodium 2 gm/ (Sodium Chloride) 50 mls @ 100 mls/hr IV Q24H [facility] Last Infusion: 10/30/22 16:10 Dose: 0 mls/hr Documented By: TORRES Lorazepam (Lorazepam 1 Mg Tablet) 2 mg PO TID PRN PRN Reason: anxiety Methadone HCl (Methadone Hcl 20 Mg/2 Ml Oral.Conc) 125 mg PO DAILY [facility] Last Admin: 10/31/22 07:59 Dose: 125 mg Documented By: MICHELLE Metronidazole (Metronidazole 500 Mg Tablet) 500 mg PO Q8H [facility] Last Admin: 10/31/22 07:59 Dose: 500 mg Documented By: MICHELLE Nicotine Polacrilex (Nicotine Polacrilex 2 Mg Gum) 2 mg BUCCAL Q2H PRN PRN Reason: Nicotine Cravings Ondansetron HCl (Ondansetron Hcl 4 Mg/2 Ml Vial) 4 mg IVPUSH Q8H PRN PRN Reason: Nausea and Vomiting Pharmacy Consult (Consult Rx Perform Med Rec) 1 each MISCELLANE ONCE PRN PRN Reason: Consult order Polyethylene Glycol (Polyethylene Glycol 3350 17 Gm Powd.Pack) 17 gm PO DAILY PRN PRN Reason: Constipation Last Admin: 10/23/22 10:54 Dose: 17 gm Documented By: CLAUDETTE Sodium Chloride (0.9 % Sodium Chloride Flush 3 Ml Syringe) 3 ml IVFLUSH QSHIFT [facility] Last Admin: 10/31/22 07:59 Dose: 3 ml Documented By: MICHELLE Labs 10/29/22 06:23 10/29/22 06:23 Assessment and Plan (1) Abscess of lower lobe of right lung without pneumonia: Status: Acute Plan 32-year-old male with history of mild intermittent asthma, anxiety, agoraphobia, history of IV drug abuse last use 1.5 months ago, and opioid use disorder on methadone admitted for management of lung abscess in IV. RLL abscess s/p pigtail catheter placed 10/17 by IR right chest tube to BENJIE drain pulled 10/[address] surgery Initially treated with IV cefepime, vanco and flagyl - culture from aspirate growing streptococcus intermedius & prevotella oralis, changed to ceftriaxone 10/21, po flagyl added 10/[address] 10/30/22 showing redemonstration of cavitary mass/abscess pulmonary consult Hepatitis C Ab positive viral load low outpatient follow up Opioid use Disorder with hx IVDA continue methadone Mild intermittent asthma-without acute exacerbation albuterol p.r.n. Normocytic anemia no previous baseline for comparison no evidence of acute blood loss iron low at 24 b12, folate wnl H/H has remained stable imaging showing splenomegaly consider outpatient hematology eval splenomegaly likely result of current infection US negative for splenic vein/portal vein thrombosis outpatient follow up Mood pt reporting anxiety and depression continue ativan psych consult rec Lexapro 5mg daily DVT ppx - Lovenox Full code attending - dr. Arreola DISPSara plan for 3 weeks IV abx, CM currently looking for safe disposition for continued abx Patient requires ongoing hospitalization to treat right lung abscess with IV antibiotics Time Spent With Patient Time: Total time managing care of this patient today ____ minutes. Quality Stroke Does the patient have a stroke diagnosis?: No VTE Prior VTE?: No VTE Risk Level:: Medical - moderate - high VTE Device Contraindication: Treatment Not Indicated VTE Drug Contraindication: N/A - Med Ordered
--- NOTE | 2022-10-31 09:24 | PM.PNPUL ---
Subjective Subjective Date of Service: 10/31/22 Principal diagnosis: Abscess Rt. lower lobe Interval history: This gentleman is seen for pulmonary follow-up today. This patient was admitted on 10/17/2022, which chief complaint of pleuritic type of pain in the right lower chest and flank, low-grade fever and shortness of breath. As per chest x-ray and CT scan he was diagnosed to have a large cavitary abscess in the right lower lobe, along with a few other solid masses. He had a PIgtail catheter placed in, for drainage and aspirate was sent for culture sensitivity, which grew Streptococcus intermedius. And prevotella oralis group. Patient initially treated with a broad-spectrum antibiotic regimen including vancomycin, and after the culture report the was started on IV Rocephin. As well as Flagyl ,PO . Patient was followed by thoracic surgery, on 10/25 , there being very little drainage, the pigtail catheter was removed. The patient continues to have some discomfort in the right lower chest, as expected. He does not seem to be severe pain. He remains afebrile. There is no significant shortness of breath or respiratory distress. Repeat CT scan of the chest shows that there is still a large cavitary lesion along with a few solid masses in the right lower lobe. Objective Data Labs 10/29/22 06:23 10/29/22 06:23 Microbiology Microbiology Results: Microbiology 10/18/22 16:00 Abscess Pulmonary Fungal Identification - Preliminary Filamentous fungus 10/18/22 16:00 Abscess Pulmonary Direct Acid Fast Bacilli Smear - Final 10/18/22 16:00 Abscess Pulmonary Gram Stain - Final 10/18/22 16:00 Abscess Pulmonary Routine Culture - Final Streptococcus intermedius 10/18/22 16:00 Abscess Pulmonary Anaerobic Culture - Final Prevotella oralis group 10/17/22 10:51 Blood - Venous Blood Culture - Final No growth after 5 days. 10/17/22 10:41 Blood - Venous Blood Culture - Final No growth after 5 days. Physical Exam Vital Signs: Vital Signs: Last Vital Signs Temp 97 F 10/31/22 06:52 Pulse 88 10/31/22 06:52 Resp 16 10/31/22 06:52 BP 122/81 10/31/22 06:52 Pulse Ox 98 10/31/22 06:52 O2 Del Method 10/31/22 06:52 BMI result Body Mass Index 20.9 Const: Other: Patient is of a thin build slightly emaciated , afebrile and comfortable. General: comfortable, no acute distress, alert and awake Orientation/consciousness: patient oriented x3 HEENT: Head: Yes normal to inspection General nose exam: No nasal polyps present and No nasal discharge present Face and sinus: Yes sinuses nontender Mouth: oropharynx normal Throat: Yes posterior oropharynx normal Eyes: General: appearance normal, both eyes and all related structures Neck: Neck: Yes normal visual inspection, Yes no lymphadenopathy, Yes trachea midline and Yes no JVD Thyroid: Thyroid normal Chest: Chest palpation & inspection: normal inspection of the chest (There is the a dressing over the right lower chest.) and normal palpation of entire chest wall Resp: Other: There is mild dullness over the right lower lobe when decreased breath sounds, No wheezes crepitations or rhonchi are heard. Cardio: Palpation: normal PMI Rate: regular rate Rhythm: regular rhythm Heart sounds: no gallops and no murmurs Peripheral pulses: Peripheral pulses 2+ throughout GI: Palpation (GI): Soft to palpation, nontender, No hepatosplenomegaly present and no masses Auscultation: normal bowel sounds Back/Spine/Pelvis: Thoracic/Lumbar Spine: thoracic and lumbar spine normal to inspection Skin: General skin exam: no rashes or lesions noted Neuro: General: patient oriented x3 and no focal motor deficits Cranial nerves: Yes CN's II-XII intact bilaterally Extrem: General: Yes normal to inspection, Yes no clubbing, cyanosis or edema and Yes no calf tenderness Psych: Appearance: grossly normal and well kempt Speech and movement: Normal speech and movement present Procedures Date of Service Date of Service: 10/31/22 Assessment and Plan Assessment and plan (1) Opioid use disorder, severe, on maintenance therapy, dependence: Status: Acute (2) History of intravenous drug abuse: Status: Acute (3) Pulmonary abscess: Status: Acute Plan Large cavitary abscess right lower lobe along with adjust sent solid masses Status post drainage with pigtail catheter, removed on 10/25. Patient remains afebrile, and does not look toxic. I think patient is on adequate antibiotic therapy at this time. We may consider to change it to Augmentin by mouth for a few more weeks However decision to change the route of administration , and further duration for treatment, should be, as per infection disease, consultation. As for as persistent radiologic appearance in the right lower lobe is concerned, I think this will lost for several weeks, and finally we will end up with Significant organized fibrotic masses. It may not clear completely. The main concern is if this patient would stay clean from IV abuse or not . He seems to be determined to avoid IV administration as long as he gets adequate dose of methadone. He needs good support and close follow-up by his primary care team. He has mild bronchial asthma by history and can use albuterol inhaler 2 puffs Q 4-6 hours p.r.n., which he does have at home. If he needs pulmonary follow-up as an outpatient will be glad to see him in the office. Time Spent With Patient Time: Total time managing care of this patient today ____ minutes. Progress Note: Quality Stroke Does the patient have a stroke diagnosis?: No
--- NOTE | 2022-10-31 11:01 | MHC.CLN ---
F/U DIET=REGULAR. INTAKE USUALLY 100%. PATIENT WITH NORMAL BMI, BUT 87% IBW. NO ADDITIONAL NUTRITION F/U SINCE INTAKE CONSISTENTLY GOOD/EXCELLENT.
[2022-10-31] MEDS: LORazepam 1 MG TABLET 2 MG PO (12:22)
[2022-10-31] MEDS: Enoxaparin Sodium 40 MG/0.4 ML SYRINGE SUBCUT (14:57)
[2022-10-31] MEDS: cefTRIAXone sodium 2 GM in 0.9 % Sodium Chloride 50 ML IV (14:57)
[2022-10-31 15:02] VITALS: BP 106/77; RESP 16; TEMP 36.9; O2SAT 98
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
[2022-10-31] MEDS: clonazePAM 1 MG TABLET PO (19:47)
[2022-10-31] MEDS: cloNIDine HCL 0.1 MG TABLET PO (19:47)
[2022-11-01 04:00] VITALS: BP 104/60; PULSE 84; RESP 18; TEMP 36.6; O2SAT 98
[2022-11-01] MEDS: clonazePAM 1 MG TABLET PO ×3 (04:41→20:06)
[2022-11-01] MEDS: Docusate Sodium 100 MG CAPSULE PO (07:39)
[2022-11-01] MEDS: metroNIDAZOLE 500 MG TABLET PO ×3 (07:39→23:38)
[2022-11-01] MEDS: methADONE HCl 20 MG/2 ML ORAL.CONC 125 MG PO (07:39)
[2022-11-01] MEDS: cloNIDine HCL 0.1 MG TABLET PO ×2 (07:39→20:06)
[2022-11-01] MEDS: Escitalopram Oxalate 10 MG TABLET PO (07:39)
[2022-11-01] MEDS: 0.9 % Sodium Chloride Flush 3 ML SYRINGE IVFLUSH ×3 (07:43→20:08)
[2022-11-01 07:51] VITALS: BP 118/70; PULSE 83; RESP 18; TEMP 37.2; O2SAT 97
--- NOTE | 2022-11-01 08:56 | P.PNIM_ITS ---
Subjective Subjective Date of Service: 11/01/22 Interval History: seen and examined this morning follow up for empyema pain with inspiration feeling depressed and anxious Review of Systems Review of Systems: Yes all other systems are reviewed and are negative Constitutional Constitutional: Denies chills and Denies fever(s) Cardiovascular Cardiovascular: Denies chest pain, Denies palpitations and Denies dyspnea Respiratory Respiratory: Denies cough and Denies dyspnea Gastrointestinal Gastrointestinal: Denies abdominal pain, Denies nausea and Denies vomiting Endocrine Endocrine: Denies palpitations Physical Exam Vital Signs: Vital Signs: Last Vital Signs Temp 98.9 F 11/01/22 07:51 Pulse 83 11/01/22 07:51 Resp 18 11/01/22 07:51 BP 118/70 11/01/22 07:51 Pulse Ox 97 11/01/22 07:51 O2 Del Method 11/01/22 07:51 BMI result Body Mass Index 20.9 Appearing in no acute distress lung sounds are clear to auscultation heart regular rate rhythm, clear S1, S2 positive bowel sounds, abdomen is soft, nontender neuro patient is alert x3, no focal deficits Objective Data Active Medications Acetaminophen (Acetaminophen 325 Mg Tablet) 650 mg PO Q6H PRN PRN Reason: Pain, Mild (Pain Scale 1-3) Last Admin: 10/30/22 08:07 Dose: 650 mg Documented By: TORRES Bisacodyl (Bisacodyl 5 Mg Tablet.) 5 mg PO DAILY PRN PRN Reason: Constipation Clonazepam (Clonazepam 1 Mg Tablet) 1 mg PO BID [facility] Last Admin: 11/01/22 07:39 Dose: 1 mg Documented By: MARTHA Clonidine HCl (Clonidine Hcl 0.1 Mg Tablet) 0.1 mg PO BID [facility]; Protocol Last Admin: 11/01/22 07:39 Dose: 0.1 mg Documented By: MARTHA Docusate Sodium (Docusate Sodium 100 Mg Capsule) 100 mg PO DAILY [facility] Last Admin: 11/01/22 07:39 Dose: 100 mg Documented By: MARTHA Enoxaparin Sodium (Enoxaparin Sodium 40 Mg/0.4 Ml Syringe) 40 mg SUBCUT Q24H [facility] Last Admin: 10/31/22 14:57 Dose: 40 mg Documented By: APOLLO Escitalopram Oxalate (Escitalopram Oxalate 10 Mg Tablet) 10 mg PO DAILY [facility] Last Admin: 11/01/22 07:39 Dose: 10 mg Documented By: MARTHA Guaifenesin/Dextromethorphan (Guaifenesin Dm 100/10/5 Ml 5 Ml Syrup) 5 ml PO Q4H PRN PRN Reason: cough Last Admin: 10/27/22 19:56 Dose: 5 ml Documented By: LEXY Methadone HCl (Methadone Hcl 20 Mg/2 Ml Oral.Conc) 125 mg PO DAILY [facility] Last Admin: 11/01/22 07:39 Dose: 125 mg Documented By: MARTHA Metronidazole (Metronidazole 500 Mg Tablet) 500 mg PO Q8H [facility] Last Admin: 11/01/22 07:39 Dose: 500 mg Documented By: MARTHA Nicotine Polacrilex (Nicotine Polacrilex 2 Mg Gum) 2 mg BUCCAL Q2H PRN PRN Reason: Nicotine Cravings Ondansetron HCl (Ondansetron Hcl 4 Mg/2 Ml Vial) 4 mg IVPUSH Q8H PRN PRN Reason: Nausea and Vomiting Pharmacy Consult (Consult Rx Perform Med Rec) 1 each MISCELLANE ONCE PRN PRN Reason: Consult order Polyethylene Glycol (Polyethylene Glycol 3350 17 Gm Powd.Pack) 17 gm PO DAILY PRN PRN Reason: Constipation Last Admin: 10/23/22 10:54 Dose: 17 gm Documented By: CLAUDETTE Sodium Chloride (0.9 % Sodium Chloride Flush 3 Ml Syringe) 3 ml IVFLUSH QSHIFT [facility] Last Admin: 11/01/22 07:43 Dose: 3 ml Documented By: MARTHA Labs 10/29/22 06:23 10/29/22 06:23 Assessment and Plan (1) Abscess of lower lobe of right lung without pneumonia: Status: Acute Plan 32-year-old male with history of mild intermittent asthma, anxiety, agoraphobia, history of IV drug abuse last use 1.5 months ago, and opioid use disorder on methadone admitted for management of lung abscess in [facility]. RLL abscess s/p pigtail catheter placed 10/17 by IR right chest tube to BENJIE drain pulled 10/[address] surgery Initially treated with IV cefepime, vanco and flagyl - culture from aspirate growing streptococcus intermedius & prevotella oralis, changed to ceftriaxone 10/21, po flagyl added 10/[address] 10/30/22 showing redemonstration of cavitary mass/abscess pulmonary consult rec continued monitoring of cavitary mass, should resolve over time. Hepatitis C Ab positive viral load low outpatient follow up Opioid use Disorder with hx IVDA continue methadone Mild intermittent asthma-without acute exacerbation albuterol p.r.n. Normocytic anemia no previous baseline for comparison no evidence of acute blood loss iron low at 24 b12, folate wnl H/H has remained stable imaging showing splenomegaly consider outpatient hematology eval splenomegaly likely result of current infection US negative for splenic vein/portal vein thrombosis outpatient follow up Mood pt reporting anxiety and depression seen aqain by psych rec to increase lexapro and change to klonopin as that has worked for him in the place DVT ppx - Lovenox Full code attending - dr. Theron GUEVARA plan for 3 weeks IV abx, CM currently looking for safe disposition for continued abx Patient requires ongoing hospitalization to treat right lung abscess with IV antibiotics Time Spent With Patient Time: Total time managing care of this patient today ____ minutes. Quality Stroke Does the patient have a stroke diagnosis?: No VTE Prior VTE?: No VTE Risk Level:: Medical - moderate - high VTE Device Contraindication: Treatment Not Indicated VTE Drug Contraindication: N/A - Med Ordered
[2022-11-01] MEDS: Enoxaparin Sodium 40 MG/0.4 ML SYRINGE SUBCUT (15:12)
[2022-11-01 16:00] VITALS: BP 127/72; PULSE 109; RESP 19; TEMP 36.7; O2SAT 97
[2022-11-01 19:55] VITALS: BP 123/74; PULSE 90; RESP 18; TEMP 36.6; O2SAT 97
[2022-11-01] MEDS: cefTRIAXone sodium 1 GM in 0.9 % Sodium Chloride 50 ML IV (21:24)
[2022-11-02 04:00] VITALS: BP 109/70; PULSE 68; RESP 18; TEMP 36.6; O2SAT 96
[2022-11-02 07:25] VITALS: BP 115/75; PULSE 73; RESP 18; TEMP 37.2; O2SAT 98
[2022-11-02] MEDS: methADONE HCl 20 MG/2 ML ORAL.CONC 125 MG PO (08:19)
[2022-11-02] MEDS: metroNIDAZOLE 500 MG TABLET PO ×3 (08:20→23:18)
[2022-11-02] MEDS: Escitalopram Oxalate 10 MG TABLET PO (08:20)
[2022-11-02] MEDS: Docusate Sodium 100 MG CAPSULE PO (08:20)
[2022-11-02] MEDS: clonazePAM 1 MG TABLET PO ×2 (08:20→20:04)
[2022-11-02] MEDS: cloNIDine HCL 0.1 MG TABLET PO (08:20)
[2022-11-02] MEDS: 0.9 % Sodium Chloride Flush 3 ML SYRINGE IVFLUSH ×3 (08:21→20:04)
--- NOTE | 2022-11-02 08:57 | P.PNIM_ITS ---
Subjective Subjective Date of Service: 11/02/22 Interval History: seen and examined this morning follow up for empyema pain with inspiration resolving feeling depressed and anxious Review of Systems Review of Systems: Yes all other systems are reviewed and are negative Constitutional Constitutional: Denies chills and Denies fever(s) Cardiovascular Cardiovascular: Denies chest pain, Denies palpitations and Denies dyspnea Respiratory Respiratory: Denies cough and Denies dyspnea Gastrointestinal Gastrointestinal: Denies abdominal pain, Denies nausea and Denies vomiting Endocrine Endocrine: Denies palpitations Physical Exam Vital Signs: Vital Signs: Last Vital Signs Temp 98.9 F 11/02/22 07:25 Pulse 73 11/02/22 07:25 Resp 18 11/02/22 07:25 BP 115/75 11/02/22 07:25 Pulse Ox 98 11/02/22 07:25 O2 Del Method 11/02/22 07:25 BMI result Body Mass Index 20.9 Appearing in no acute distress lung sounds are clear to auscultation heart regular rate rhythm, clear S1, S2 positive bowel sounds, abdomen is soft, nontender neuro patient is alert x3, no focal deficits Objective Data Active Medications Acetaminophen (Acetaminophen 325 Mg Tablet) 650 mg PO Q6H PRN PRN Reason: Pain, Mild (Pain Scale 1-3) Last Admin: 10/30/22 08:07 Dose: 650 mg Documented By: TORRES Bisacodyl (Bisacodyl 5 Mg Tablet.) 5 mg PO DAILY PRN PRN Reason: Constipation Clonazepam (Clonazepam 1 Mg Tablet) 1 mg PO BID [facility] Last Admin: 11/02/22 08:20 Dose: 1 mg Documented By: ELOISA Clonidine HCl (Clonidine Hcl 0.1 Mg Tablet) 0.1 mg PO BID [facility]; Protocol Last Admin: 11/02/22 08:20 Dose: 0.1 mg Documented By: ELOISA Docusate Sodium (Docusate Sodium 100 Mg Capsule) 100 mg PO DAILY [facility] Last Admin: 11/02/22 08:20 Dose: 100 mg Documented By: ELOISA Enoxaparin Sodium (Enoxaparin Sodium 40 Mg/0.4 Ml Syringe) 40 mg SUBCUT Q24H [facility] Last Admin: 11/01/22 15:12 Dose: 40 mg Documented By: MARTHA Escitalopram Oxalate (Escitalopram Oxalate 10 Mg Tablet) 10 mg PO DAILY [facility] Last Admin: 11/02/22 08:20 Dose: 10 mg Documented By: ELOISA Guaifenesin/Dextromethorphan (Guaifenesin Dm 100/10/5 Ml 5 Ml Syrup) 5 ml PO Q4H PRN PRN Reason: cough Last Admin: 10/27/22 19:56 Dose: 5 ml Documented By: LEXY Ceftriaxone Sodium 1 gm/ (Sodium Chloride) 50 mls @ 100 mls/hr IV Q24H [facility] Last Infusion: 11/01/22 22:07 Dose: 0 mls/hr Documented By: NEERAJ Methadone HCl (Methadone Hcl 20 Mg/2 Ml Oral.Conc) 125 mg PO DAILY [facility] Last Admin: 11/02/22 08:19 Dose: 125 mg Documented By: ELOISA Metronidazole (Metronidazole 500 Mg Tablet) 500 mg PO Q8H [facility] Last Admin: 11/02/22 08:20 Dose: 500 mg Documented By: ELOISA Nicotine Polacrilex (Nicotine Polacrilex 2 Mg Gum) 2 mg BUCCAL Q2H PRN PRN Reason: Nicotine Cravings Ondansetron HCl (Ondansetron Hcl 4 Mg/2 Ml Vial) 4 mg IVPUSH Q8H PRN PRN Reason: Nausea and Vomiting Pharmacy Consult (Consult Rx Perform Med Rec) 1 each MISCELLANE ONCE PRN PRN Reason: Consult order Polyethylene Glycol (Polyethylene Glycol 3350 17 Gm Powd.Pack) 17 gm PO DAILY PRN PRN Reason: Constipation Last Admin: 10/23/22 10:54 Dose: 17 gm Documented By: CLAUDETTE Sodium Chloride (0.9 % Sodium Chloride Flush 3 Ml Syringe) 3 ml IVFLUSH QSHIFT [facility] Last Admin: 11/02/22 08:21 Dose: 3 ml Documented By: ELOISA Labs 10/29/22 06:23 10/29/22 06:23 Assessment and Plan (1) Abscess of lower lobe of right lung without pneumonia: Status: Acute Plan 32-year-old male with history of mild intermittent asthma, anxiety, agoraphobia, history of IV drug abuse last use 1.5 months ago, and opioid use disorder on methadone admitted for management of lung abscess in IVDA. RLL abscess s/p pigtail catheter placed 10/17 by IR right chest tube to BENJIE drain pulled 10/[address] surgery Initially treated with IV cefepime, vanco and flagyl - culture from aspirate growing streptococcus intermedius & prevotella oralis, changed to ceftriaxone 10/21, po flagyl added / Repeat chest CT 10/30/22 showing redemonstration of cavitary mass/abscess pulmonary consult rec continued monitoring of cavitary mass, should resolve over time. day #17 of 21 IV abx Hepatitis C Ab positive viral load low outpatient follow up Opioid use Disorder with hx IVDA continue methadone Mild intermittent asthma-without acute exacerbation albuterol p.r.n. Normocytic anemia no previous baseline for comparison no evidence of acute blood loss iron low at 24 b12, folate wnl H/H has remained stable imaging showing splenomegaly consider outpatient hematology eval splenomegaly likely result of current infection US negative for splenic vein/portal vein thrombosis outpatient follow up Mood pt reporting anxiety and depression seen aqain by psych rec to increase lexapro and change to klonopin as that has worked for him in the past DVT ppx - Lovenox Full code attending - dr. Theron GUEVARA 3 weeks IV abx total , CM currently looking for safe disposition for continued abx Patient requires ongoing hospitalization to treat right lung abscess with IV antibiotics Time Spent With Patient Time: Total time managing care of this patient today ____ minutes. Quality Stroke Does the patient have a stroke diagnosis?: No VTE Prior VTE?: No VTE Risk Level:: Medical - moderate - high VTE Device Contraindication: Treatment Not Indicated VTE Drug Contraindication: N/A - Med Ordered
--- NOTE | 2022-11-02 11:40 | MHC.CM.PN ---
EMR REVIEWED, PER HOSPISTALIST PT ON DAY 17 OF ABX AND WILL BE CLEARED FOR D/C AFTER DOSE 21 WHICH WILL BE ON MONDAY 11/06, PLAN REMAINS FOR PT TO D/C HOME TO APARTMENT WHERE HE LIVES W/S.O. AND PER PREVIOUS CONVERSATIONS W/PT HE WILL HAVE TRANSPORTATION HOME.
[2022-11-02 15:30] VITALS: BP 105/62; PULSE 71; RESP 16; TEMP 36.6; O2SAT 97
[2022-11-02] MEDS: Enoxaparin Sodium 40 MG/0.4 ML SYRINGE SUBCUT (16:13)
[2022-11-02 19:06] VITALS: BP 99/62; PULSE 84; RESP 15; TEMP 37.3; O2SAT 97
[2022-11-02] MEDS: cefTRIAXone sodium 1 GM in 0.9 % Sodium Chloride 50 ML IV (20:03)
[2022-11-03 04:00] VITALS: BP 101/60; PULSE 72; RESP 16; TEMP 36.7; O2SAT 98
[2022-11-03 07:58] VITALS: BP 118/75; PULSE 74; RESP 18; TEMP 37.2; O2SAT 98
[2022-11-03] MEDS: 0.9 % Sodium Chloride Flush 3 ML SYRINGE IVFLUSH ×3 (10:26→19:45)
[2022-11-03] MEDS: Escitalopram Oxalate 10 MG TABLET PO (10:26)
[2022-11-03] MEDS: methADONE HCl 20 MG/2 ML ORAL.CONC 125 MG PO (10:27)
[2022-11-03] MEDS: metroNIDAZOLE 500 MG TABLET PO ×2 (10:27→15:12)
[2022-11-03] MEDS: cloNIDine HCL 0.1 MG TABLET PO ×2 (10:27→19:45)
[2022-11-03] MEDS: Docusate Sodium 100 MG CAPSULE PO (10:27)
[2022-11-03] MEDS: clonazePAM 1 MG TABLET PO ×2 (10:27→19:45)
--- NOTE | 2022-11-03 12:10 | P.PNIM_ITS ---
Subjective Subjective Date of Service: 11/03/22 Interval History: seen and examined this morning follow up for empyema reporting right side pain with inspiration, cough with intermittent phlegm production Review of Systems Review of Systems: Yes all other systems are reviewed and are negative Constitutional Constitutional: Denies chills and Denies fever(s) Cardiovascular Cardiovascular: Denies chest pain, Denies palpitations and Denies dyspnea Respiratory Respiratory: Reports cough, Reports pain on inspiration and Denies dyspnea Gastrointestinal Gastrointestinal: Denies abdominal pain Endocrine Endocrine: Denies palpitations Physical Exam Vital Signs: Vital Signs: Last Vital Signs Temp 98.9 F 11/03/22 07:58 Pulse 74 11/03/22 07:58 Resp 18 11/03/22 07:58 BP 118/75 11/03/22 07:58 Pulse Ox 98 11/03/22 07:58 O2 Del Method 11/03/22 07:58 BMI result Body Mass Index 20.9 Const: General: comfortable, no acute distress, alert and awake Nutritional Appearance: thin Orientation/consciousness: patient oriented x3 Resp: Other: dim right base Effort & Inspection: normal respiratory effort and able to speak in complete sentences Cardio: Rate: regular rate Heart sounds: S1 normal heart sound present and S2 normal heart sound present GI: Inspection: No distended Palpation (GI): Soft to palpation Neuro: General: patient oriented x3 and CN's II-XI intact bilaterally Extrem: General: Yes no pedal edema Objective Data Active Medications Acetaminophen (Acetaminophen 325 Mg Tablet) 650 mg PO Q6H PRN PRN Reason: Pain, Mild (Pain Scale 1-3) Last Admin: 10/30/22 08:07 Dose: 650 mg Documented By: TORRES Bisacodyl (Bisacodyl 5 Mg Tablet.) 5 mg PO DAILY PRN PRN Reason: Constipation Clonazepam (Clonazepam 1 Mg Tablet) 1 mg PO BID [facility] Last Admin: 11/03/22 10:27 Dose: 1 mg Documented By: TORRES Clonidine HCl (Clonidine Hcl 0.1 Mg Tablet) 0.1 mg PO BID [facility]; Protocol Last Admin: 11/03/22 10:27 Dose: 0.1 mg Documented By: TORRES Docusate Sodium (Docusate Sodium 100 Mg Capsule) 100 mg PO DAILY [facility] Last Admin: 11/03/22 10:27 Dose: 100 mg Documented By: TORRES Enoxaparin Sodium (Enoxaparin Sodium 40 Mg/0.4 Ml Syringe) 40 mg SUBCUT Q24H [facility] Last Admin: 11/02/22 16:13 Dose: 40 mg Documented By: ELOISA Escitalopram Oxalate (Escitalopram Oxalate 10 Mg Tablet) 10 mg PO DAILY [facility] Last Admin: 11/03/22 10:26 Dose: 10 mg Documented By: TORRES Guaifenesin/Dextromethorphan (Guaifenesin Dm 100/10/5 Ml 5 Ml Syrup) 5 ml PO Q4H PRN PRN Reason: cough Last Admin: 10/27/22 19:56 Dose: 5 ml Documented By: LEXY Ceftriaxone Sodium 1 gm/ (Sodium Chloride) 50 mls @ 100 mls/hr IV Q24H [facility] Last Infusion: 11/02/22 20:42 Dose: 0 mls/hr Documented By: ODRISM Methadone HCl (Methadone Hcl 20 Mg/2 Ml Oral.Conc) 125 mg PO DAILY [facility] Last Admin: 11/03/22 10:27 Dose: 125 mg Documented By: TORRES Metronidazole (Metronidazole 500 Mg Tablet) 500 mg PO Q8H [facility] Last Admin: 11/03/22 10:27 Dose: 500 mg Documented By: TORRES Nicotine Polacrilex (Nicotine Polacrilex 2 Mg Gum) 2 mg BUCCAL Q2H PRN PRN Reason: Nicotine Cravings Ondansetron HCl (Ondansetron Hcl 4 Mg/2 Ml Vial) 4 mg IVPUSH Q8H PRN PRN Reason: Nausea and Vomiting Pharmacy Consult (Consult Rx Perform Med Rec) 1 each MISCELLANE ONCE PRN PRN Reason: Consult order Polyethylene Glycol (Polyethylene Glycol 3350 17 Gm Powd.Pack) 17 gm PO DAILY PRN PRN Reason: Constipation Last Admin: 10/23/22 10:54 Dose: 17 gm Documented By: CLAUDETTE Sodium Chloride (0.9 % Sodium Chloride Flush 3 Ml Syringe) 3 ml IVFLUSH QSHIFT [facility] Last Admin: 11/03/22 10:26 Dose: 3 ml Documented By: TORRES Labs 10/29/22 06:23 10/29/22 06:23 Assessment and Plan (1) Pulmonary abscess: Status: Acute Plan 32-year-old male with history of mild intermittent asthma, anxiety, agoraphobia, history of IV drug abuse last use 1.5 months ago, and opioid use disorder on methadone admitted for management of lung abscess in IVDA. RLL abscess s/p pigtail catheter placed 10/17 by IR right chest tube to BENJIE drain pulled 10/[address] surgery Initially treated with IV cefepime, vanco and flagyl - culture from aspirate growing streptococcus intermedius & prevotella oralis, changed to ceftriaxone 10/21, po flagyl added 10/[address] 10/30/22 showing redemonstration of cavitary mass/abscess pulmonary consult rec continued monitoring of cavitary mass, should resolve over time. day #18 of 21 IV abx Hepatitis C Ab positive viral load low outpatient follow up Opioid use Disorder with hx IVDA continue methadone Mild intermittent asthma-without acute exacerbation albuterol p.r.n. Normocytic anemia no previous baseline for comparison no evidence of acute blood loss iron low at 24; b12, folate wnl H/H has remained stable imaging showing splenomegaly consider outpatient hematology eval splenomegaly likely result of current infection US negative for splenic vein/portal vein thrombosis outpatient follow up Mood pt reporting anxiety and depression seen aqain by psych rec to increase lexapro and change to klonopin as that has worked for him in the past DVT ppx - Lovenox Full code attending - dr. Theron GUEVARA 3 weeks IV abx total , CM currently looking for safe disposition for continued abx Patient requires ongoing hospitalization to treat right lung abscess with IV antibiotics Time Spent With Patient Time: Total time managing care of this patient today ____ minutes. Quality Stroke Does the patient have a stroke diagnosis?: No VTE Prior VTE?: No VTE Risk Level:: Medical - moderate - high VTE Device Contraindication: Treatment Not Indicated VTE Drug Contraindication: N/A - Med Ordered
[2022-11-03] MEDS: Enoxaparin Sodium 40 MG/0.4 ML SYRINGE SUBCUT (15:11)
[2022-11-03 16:14] VITALS: BP 112/74; PULSE 85; RESP 18; TEMP 36.6; O2SAT 99
[2022-11-03 19:44] VITALS: BP 106/57; PULSE 77; RESP 18; TEMP 36.6; O2SAT 98
[2022-11-03] MEDS: cefTRIAXone sodium 1 GM in 0.9 % Sodium Chloride 50 ML IV (19:45)
[2022-11-04] MEDS: metroNIDAZOLE 500 MG TABLET PO ×3 (00:30→15:27)
[2022-11-04 03:59] VITALS: BP 112/67; PULSE 55; RESP 18; TEMP 36.4; O2SAT 98
[2022-11-04 07:08] VITALS: BP 110/70; PULSE 88; RESP 18; TEMP 36.1; O2SAT 98
[2022-11-04 08:10] LABS: Hematocrit 32.8 % (42.0-52.0); Mean Corpuscular HGB Conc 30.5 g/dl (31.0-36.0); Mean Corpuscular Hemoglobin 25.7 pg (27.0-33.0); Mean Corpuscular Volume 84.3 fL (80.0-98.0); Mean Platelet Volume 8.4 fL (9.4-12.4); Platelet Count 355 X10*3/uL (160-400); Red Blood Count 3.89 X10*6/uL (4.60-5.80); Red Cell Distribution Width 17.5 % (11.0-16.0); White Blood Count 5.5 X10*3/uL (4.8-10.8)
[2022-11-04 08:34] LABS: Anion Gap 13 (12-20); Blood Urea Nitrogen 12 mg/dL (9-16); Calcium 9.1 mg/dL (8.4-10.2); Carbon Dioxide 27 mmol/L (22-29); Chloride 106 mmol/L (96-108); Estimated Glomerular Filt Rate > 60; Glucose Random 66 mg/dL (60-115); Potassium 4.5 mmol/L (3.3-5.1); Sodium 141 mmol/L (135-145)
[2022-11-04] MEDS: methADONE HCl 20 MG/2 ML ORAL.CONC 125 MG PO (09:27)
[2022-11-04] MEDS: Docusate Sodium 100 MG CAPSULE PO (09:28)
[2022-11-04] MEDS: clonazePAM 1 MG TABLET PO ×2 (09:28→20:08)
[2022-11-04] MEDS: cloNIDine HCL 0.1 MG TABLET PO ×2 (09:28→20:08)
[2022-11-04] MEDS: 0.9 % Sodium Chloride Flush 3 ML SYRINGE IVFLUSH ×3 (09:29→20:08)
[2022-11-04] MEDS: Escitalopram Oxalate 10 MG TABLET PO (09:29)
--- NOTE | 2022-11-04 12:11 | P.PNIM_ITS ---
Subjective Subjective Date of Service: 11/04/22 Interval History: seen and examined this morning follow up for empyema no overnight events does report rash to left arm, no itching or pain Review of Systems Review of Systems: Yes all other systems are reviewed and are negative Constitutional Constitutional: Denies chills and Denies fever(s) Cardiovascular Cardiovascular: Denies chest pain, Denies palpitations and Denies dyspnea Respiratory Respiratory: Reports cough and Denies dyspnea Gastrointestinal Gastrointestinal: Denies abdominal pain Endocrine Endocrine: Denies palpitations Physical Exam Vital Signs: Vital Signs: Last Vital Signs Temp 97 F 11/04/22 07:08 Pulse 88 11/04/22 07:08 Resp 18 11/04/22 07:08 BP 110/70 11/04/22 07:08 Pulse Ox 98 11/04/22 07:08 O2 Del Method 11/04/22 07:08 BMI result Body Mass Index 20.9 Const: General: cooperative, comfortable, no acute distress, alert and awake Nutritional Appearance: thin Orientation/consciousness: patient oriented x3 Resp: Other: dim right base Effort & Inspection: normal respiratory effort and able to spe ak in complete sentences Cardio: Rate: regular rate Heart sounds: S1 normal heart sound present and S2 normal heart sound present GI: Inspection: No distended Palpation (GI): Soft to palpation Skin: Other: Neuro: General: patient oriented x3 and CN's II-XI intact bilaterally Extrem: General: Yes no pedal edema Objective Data Active Medications Acetaminophen (Acetaminophen 325 Mg Tablet) 650 mg PO Q6H PRN PRN Reason: Pain, Mild (Pain Scale 1-3) Last Admin: 10/30/22 08:07 Dose: 650 mg Documented By: TORRES Bisacodyl (Bisacodyl 5 Mg Tablet.) 5 mg PO DAILY PRN PRN Reason: Constipation Clonazepam (Clonazepam 1 Mg Tablet) 1 mg PO BID [facility] Last Admin: 11/04/22 09:28 Dose: 1 mg Documented By: TORRES Clonidine HCl (Clonidine Hcl 0.1 Mg Tablet) 0.1 mg PO BID [facility]; Protocol Last Admin: 11/04/22 09:28 Dose: 0.1 mg Documented By: TORRES Docusate Sodium (Docusate Sodium 100 Mg Capsule) 100 mg PO DAILY [facility] Last Admin: 02/10/23 09:28 Dose: 100 mg Documented By: TORRES Enoxaparin Sodium (Enoxaparin Sodium 40 Mg/0.4 Ml Syringe) 40 mg SUBCUT Q24H [facility] Last Admin: 11/03/22 15:11 Dose: 40 mg Documented By: TORRES Escitalopram Oxalate (Escitalopram Oxalate 10 Mg Tablet) 10 mg PO DAILY [facility] Last Admin: 11/04/22 09:29 Dose: 10 mg Documented By: TORRES Guaifenesin/Dextromethorphan (Guaifenesin Dm 100/10/5 Ml 5 Ml Syrup) 5 ml PO Q4H PRN PRN Reason: cough Last Admin: 10/27/22 19:56 Dose: 5 ml Documented By: LEXY Ceftriaxone Sodium 1 gm/ (Sodium Chloride) 50 mls @ 100 mls/hr IV Q24H [facility] Last Infusion: 11/03/22 20:17 Dose: 0 mls/hr Documented By: JOCELYNN Methadone HCl (Methadone Hcl 20 Mg/2 Ml Oral.Conc) 125 mg PO DAILY [facility] Last Admin: 11/04/22 09:27 Dose: 125 mg Documented By: TORRES Metronidazole (Metronidazole 500 Mg Tablet) 500 mg PO Q8H [facility] Last Admin: 11/04/22 09:29 Dose: 500 mg Documented By: TORRES Nicotine Polacrilex (Nicotine Polacrilex 2 Mg Gum) 2 mg BUCCAL Q2H PRN PRN Reason: Nicotine Cravings Ondansetron HCl (Ondansetron Hcl 4 Mg/2 Ml Vial) 4 mg IVPUSH Q8H PRN PRN Reason: Nausea and Vomiting Pharmacy Consult (Consult Rx Perform Med Rec) 1 each MISCELLANE ONCE PRN PRN Reason: Consult order Polyethylene Glycol (Polyethylene Glycol 3350 17 Gm Powd.Pack) 17 gm PO DAILY PRN PRN Reason: Constipation Last Admin: 10/23/22 10:54 Dose: 17 gm Documented By: CLAUDETTE Sodium Chloride (0.9 % Sodium Chloride Flush 3 Ml Syringe) 3 ml IVFLUSH QSHIFT [facility] Last Admin: 11/04/22 09:29 Dose: 3 ml Documented By: TORRES Labs 11/04/22 07:51 11/04/22 07:51 Labs: Laboratory Results - last 24 hr 11/04/22 11/04/22 07:51 07:51 MCV 84.3 MCH 25.7 L MCHC 30.5 L RDW 17.5 H Plt Count 355 MPV 8.4 L Absolute Nucleated RBC 0.000 Nucleated RBC % (auto) 0.0 Anion Gap 13 Estim Creat Clear Calc 150.0 Estimated GFR > 60 Random Glucose 66 Calcium 9.1 D Assessment and Plan (1) Pulmonary abscess: Status: Acute Plan 32-year-old male with history of mild intermittent asthma, anxiety, agoraphobia, history of IV drug abuse last use 1.5 months ago, and opioid use disorder on methadone admitted for management of lung abscess in IVDA. RLL abscess s/p pigtail catheter placed 10/17 by IR right chest tube to BENJIE drain pulled 10/[address] surgery Initially treated with IV cefepime, vanco and flagyl - culture from aspirate growing streptococcus intermedius & prevotella oralis, changed to ceftriaxone 10/21, po flagyl added 10/[address] 10/30/22 showing redemonstration of cavitary mass/abscess pulmonary consult rec continued monitoring of cavitary mass, should resolve over time. day #19 of 21 IV abx repeat chest CT monday and further need for abx to be determined at that time left arm rash likely contact dermatitis follow clinical course Hepatitis C Ab positive but negative viral load Opioid use Disorder with hx IVDA continue methadone Mild intermittent asthma-without acute exacerbation albuterol p.r.n. Normocytic anemia no previous baseline for comparison no evidence of acute blood loss iron low at 24; b12, folate wnl H/H has remained stable imaging showing splenomegaly consider outpatient hematology eval splenomegaly likely result of current infection US negative for splenic vein/portal vein thrombosis outpatient follow up Mood pt reporting anxiety and depression seen aqain by psych rec to increase lexapro and change to klonopin as that has worked for him in the past DVT ppx - Lovenox Full code attending - dr. Theron GUEVARA 3 weeks IV abx total , CM currently looking for safe disposition for continued abx Patient requires ongoing hospitalization to treat right lung abscess with IV antibiotics Time Spent With Patient Time: Total time managing care of this patient today ____ minutes. Quality Stroke Does the patient have a stroke diagnosis?: No VTE Prior VTE?: No VTE Risk Level:: Medical - moderate - high VTE Device Contraindication: Treatment Not Indicated VTE Drug Contraindication: N/A - Med Ordered
[2022-11-04] MEDS: Enoxaparin Sodium 40 MG/0.4 ML SYRINGE SUBCUT (15:26)
[2022-11-04 15:27] VITALS: BP 106/55; PULSE 83; RESP 18; TEMP 36.7; O2SAT 99
[2022-11-04] MEDS: cefTRIAXone sodium 1 GM in 0.9 % Sodium Chloride 50 ML IV (20:08)
[2022-11-04 20:15] VITALS: BP 107/64; PULSE 83; RESP 18; TEMP 36.8; O2SAT 97
[2022-11-05] MEDS: metroNIDAZOLE 500 MG TABLET PO ×3 (00:23→15:55)
[2022-11-05 04:00] VITALS: BP 109/62; PULSE 67; RESP 18; TEMP 36.8; O2SAT 98
[2022-11-05 07:13] VITALS: BP 133/73; PULSE 98; RESP 18; TEMP 36.6; O2SAT 97
[2022-11-05] MEDS: methADONE HCl 20 MG/2 ML ORAL.CONC 125 MG PO (07:42)
[2022-11-05] MEDS: Escitalopram Oxalate 10 MG TABLET PO (07:43)
[2022-11-05] MEDS: clonazePAM 1 MG TABLET PO ×2 (07:43→19:40)
[2022-11-05] MEDS: Docusate Sodium 100 MG CAPSULE PO (07:43)
[2022-11-05] MEDS: cloNIDine HCL 0.1 MG TABLET PO ×2 (07:44→19:39)
[2022-11-05] MEDS: 0.9 % Sodium Chloride Flush 3 ML SYRINGE IVFLUSH ×3 (07:44→19:40)
--- NOTE | 2022-11-05 10:45 | HO.PM.IMPN ---
Subjective Subjective Date of Service: 11/05/22 Interval History: seen and examined this morning follow up for empyema still with some right sided chest pain, intermittent cough Review of Systems Review of Systems: Yes all other systems are reviewed and are negative Constitutional Constitutional: Denies chills and Denies fever(s) Cardiovascular Cardiovascular: Denies palpitations and Denies dyspnea Respiratory Respiratory: Reports cough, Reports pain on inspiration and Denies dyspnea Gastrointestinal Gastrointestinal: Denies abdominal pain, Denies nausea and Denies vomiting Endocrine Endocrine: Denies palpitations Physical Exam Vital Signs: Vital Signs: Last Vital Signs Temp 98 F 11/05/22 07:13 Pulse 98 11/05/22 07:13 Resp 18 11/05/22 07:13 BP 133/73 11/05/22 07:13 Pulse Ox 97 11/05/22 07:13 O2 Del Method 11/05/22 07:13 BMI result Body Mass Index 20.9 Const: General: cooperative, comfortable, alert and awake Nutritional Appearance: thin Orientation/consciousness: patient oriented x3 Resp: Other: dim right base, otherwise clear Effort & Inspection: normal respiratory effort and able to speak in complete sentences Cardio: Rate: regular rate Heart sounds: S1 normal heart sound present and S2 normal heart sound present GI: Inspection: No distended Palpation (GI): Soft to palpation and nontender Skin: Other: left forearm dry non pruritic skin rash, dry nontender, no drainage Neuro: General: patient oriented x3 and CN's II-XI intact bilaterally Extrem: General: Yes no pedal edema Objective Data Active Medications Acetaminophen (Acetaminophen 325 Mg Tablet) 650 mg PO Q6H PRN PRN Reason: Pain, Mild (Pain Scale 1-3) Last Admin: 10/30/22 08:07 Dose: 650 mg Documented By: TORRES Bisacodyl (Bisacodyl 5 Mg Tablet.) 5 mg PO DAILY PRN PRN Reason: Constipation Clonazepam (Clonazepam 1 Mg Tablet) 1 mg PO BID [facility] Last Admin: 11/05/22 07:43 Dose: 1 mg Documented By: MARTHA Clonidine HCl (Clonidine Hcl 0.1 Mg Tablet) 0.1 mg PO BID [facility]; Protocol Last Admin: 11/05/22 07:44 Dose: 0.1 mg Documented By: MARTHA Docusate Sodium (Docusate Sodium 100 Mg Capsule) 100 mg PO DAILY [facility] Last Admin: 11/05/22 07:43 Dose: 100 mg Documented By: MARTHA Enoxaparin Sodium (Enoxaparin Sodium 40 Mg/0.4 Ml Syringe) 40 mg SUBCUT Q24H [facility] Last Admin: 11/04/22 15:26 Dose: 40 mg Documented By: TORRES Escitalopram Oxalate (Escitalopram Oxalate 10 Mg Tablet) 10 mg PO DAILY [facility] Last Admin: 11/05/22 07:43 Dose: 10 mg Documented By: MARTHA Guaifenesin/Dextromethorphan (Guaifenesin Dm 100/10/5 Ml 5 Ml Syrup) 5 ml PO Q4H PRN PRN Reason: cough Last Admin: 10/27/22 19:56 Dose: 5 ml Documented By: LEXY Ceftriaxone Sodium 1 gm/ (Sodium Chloride) 50 mls @ 100 mls/hr IV Q24H [facility] Last Infusion: 11/04/22 21:07 Dose: 0 mls/hr Documented By: JOCELYNN Methadone HCl (Methadone Hcl 20 Mg/2 Ml Oral.Conc) 125 mg PO DAILY [facility] Last Admin: 11/05/22 07:42 Dose: 125 mg Documented By: MARTHA Metronidazole (Metronidazole 500 Mg Tablet) 500 mg PO Q8H [facility] Last Admin: 11/05/22 07:43 Dose: 500 mg Documented By: MARTHA Nicotine Polacrilex (Nicotine Polacrilex 2 Mg Gum) 2 mg BUCCAL Q2H PRN PRN Reason: Nicotine Cravings Ondansetron HCl (Ondansetron Hcl 4 Mg/2 Ml Vial) 4 mg IVPUSH Q8H PRN PRN Reason: Nausea and Vomiting Oxycodone HCl (Oxycodone Hcl Immed Release 5 Mg Tablet) 5 mg PO Q6H PRN PRN Reason: Pain, Moderate (Pain Scale 4-6 Pharmacy Consult (Consult Rx Perform Med Rec) 1 each MISCELLANE ONCE PRN PRN Reason: Consult order Polyethylene Glycol (Polyethylene Glycol 3350 17 Gm Powd.Pack) 17 gm PO DAILY PRN PRN Reason: Constipation Last Admin: 10/23/22 10:54 Dose: 17 gm Documented By: CLAUDETTE Sodium Chloride (0.9 % Sodium Chloride Flush 3 Ml Syringe) 3 ml IVFLUSH QSHIFT [facility] Last Admin: 11/05/22 07:44 Dose: 3 ml Documented By: MARTHA Labs 11/04/22 07:51 11/04/22 07:51 Assessment and Plan (1) Pulmonary abscess: Status: Acute Plan 32-year-old male with history of mild intermittent asthma, anxiety, agoraphobia, history of IV drug abuse last use 1.5 months ago, and opioid use disorder on methadone admitted for management of lung abscess in IVDA. RLL abscess s/p pigtail catheter placed 10/17 by IR right chest tube to BENJIE drain pulled 10/[address] surgery Initially treated with IV cefepime, vanco and flagyl - culture from aspirate growing streptococcus intermedius & prevotella oralis, changed to ceftriaxone 10/21, po flagyl added 10/[address] 10/30/22 showing redemonstration of cavitary mass/abscess pulmonary consult rec continued monitoring of cavitary mass, should resolve over time. day #19 of 21 IV abx repeat chest CT monday and further need for abx to be determined at that time, discuss results of CT with ID left arm rash likely contact dermatitis non painful, improving Hepatitis C Ab positive negative viral load Opioid use Disorder with hx IVDA continue methadone Mild intermittent asthma-without acute exacerbation albuterol p.r.n. Normocytic anemia no previous baseline for comparison no evidence of acute blood loss iron low at 24; b12, folate wnl H/H improving imaging showing splenomegaly consider outpatient hematology eval splenomegaly likely result of current infection US negative for splenic vein/portal vein thrombosis outpatient follow up Mood pt reporting anxiety and depression seen aqain by psych rec to increase lexapro and change to klonopin as that has worked for him in the past DVT ppx - Lovenox Full code attending - dr. willy GUEVARA 3 weeks IV abx total , CM currently looking for safe disposition for continued abx Patient requires ongoing hospitalization to treat right lung abscess with IV antibiotics Time Spent With Patient Time: Total time managing care of this patient today ____ minutes. Quality Stroke Does the patient have a stroke diagnosis?: No VTE Prior VTE?: No VTE Risk Level:: Medical - moderate - high VTE Device Contraindication: Treatment Not Indicated VTE Drug Contraindication: N/A - Med Ordered
[2022-11-05 15:04] VITALS: BP 102/57; PULSE 88; RESP 18; TEMP 37.1; O2SAT 97
[2022-11-05] MEDS: Enoxaparin Sodium 40 MG/0.4 ML SYRINGE SUBCUT (15:52)
[2022-11-05] MEDS: oxyCODONE HCl Immed Release 5 MG TABLET PO (15:54)
[2022-11-05 18:59] VITALS: BP 105/59; PULSE 79; RESP 18; TEMP 36.9; O2SAT 98
[2022-11-05] MEDS: cefTRIAXone sodium 1 GM in 0.9 % Sodium Chloride 50 ML IV (19:39)
[2022-11-06] MEDS: metroNIDAZOLE 500 MG TABLET PO ×4 (00:24→23:26)
[2022-11-06 03:15] VITALS: BP 120/67; PULSE 77; RESP 18; TEMP 36.3; O2SAT 97
[2022-11-06 07:45] VITALS: BP 130/86; PULSE 73; RESP 19; TEMP 36.6; O2SAT 97
[2022-11-06] MEDS: oxyCODONE HCl Immed Release 5 MG TABLET PO ×2 (09:05→19:29)
[2022-11-06] MEDS: clonazePAM 1 MG TABLET PO ×2 (09:06→20:18)
[2022-11-06] MEDS: 0.9 % Sodium Chloride Flush 3 ML SYRINGE IVFLUSH ×3 (09:06→20:18)
[2022-11-06] MEDS: Docusate Sodium 100 MG CAPSULE PO (09:06)
[2022-11-06] MEDS: methADONE HCl 20 MG/2 ML ORAL.CONC 125 MG PO (09:06)
[2022-11-06] MEDS: cloNIDine HCL 0.1 MG TABLET PO ×2 (09:06→20:18)
[2022-11-06] MEDS: Escitalopram Oxalate 10 MG TABLET PO (09:06)
--- NOTE | 2022-11-06 09:46 | P.PNIM_ITS ---
Subjective Subjective Date of Service: 11/06/22 Interval History: seen and examined this morning follow up for right lung abscess reporting right side pain with inspiration, not much cough Review of Systems Review of Systems: Yes all other systems are reviewed and are negative Constitutional Constitutional: Denies chills and Denies fever(s) Cardiovascular Cardiovascular: Denies chest pain and Denies palpitations Respiratory Respiratory: Reports cough and Reports pain on inspiration Gastrointestinal Gastrointestinal: Denies abdominal pain, Denies nausea and Denies vomiting Endocrine Endocrine: Denies palpitations Physical Exam Vital Signs: Vital Signs: Last Vital Signs Temp 97.9 F 11/06/22 07:45 Pulse 73 11/06/22 07:45 Resp 19 11/06/22 07:45 BP 130/86 11/06/22 07:45 Pulse Ox 97 11/06/22 07:45 O2 Del Method 11/06/22 07:45 BMI result Body Mass Index 20.9 Const: General: cooperative, comfortable, alert and awake Nutritional Appearance: thin Orientation/consciousness: patient oriented x3 Resp: Other: right base dim Effort & Inspection: normal respiratory effort, able to speak in complete sentences, no respiratory distress and no use of accessory muscles Cardio: Rate: regular rate Heart sounds: S1 normal heart sound present and S2 normal heart sound present GI: Inspection: No distended Palpation (GI): Soft to palpation and nontender Neuro: General: patient oriented x3 and CN's II-XI intact bilaterally Extrem: General: Yes no pedal edema Objective Data Active Medications Acetaminophen (Acetaminophen 325 Mg Tablet) 650 mg PO Q6H PRN PRN Reason: Pain, Mild (Pain Scale 1-3) Last Admin: 10/30/22 08:07 Dose: 650 mg Documented By: TORRES Bisacodyl (Bisacodyl 5 Mg Tablet.) 5 mg PO DAILY PRN PRN Reason: Constipation Clonazepam (Clonazepam 1 Mg Tablet) 1 mg PO BID [facility] Last Admin: 11/06/22 09:06 Dose: 1 mg Documented By: MARTHA Clonidine HCl (Clonidine Hcl 0.1 Mg Tablet) 0.1 mg PO BID [facility]; Protocol Last Admin: 11/06/22 09:06 Dose: 0.1 mg Documented By: MARTHA Docusate Sodium (Docusate Sodium 100 Mg Capsule) 100 mg PO DAILY [facility] Last Admin: 11/06/22 09:06 Dose: 100 mg Documented By: MARTHA Enoxaparin Sodium (Enoxaparin Sodium 40 Mg/0.4 Ml Syringe) 40 mg SUBCUT Q24H [facility] Last Admin: 11/05/22 15:52 Dose: 40 mg Documented By: MARTHA Escitalopram Oxalate (Escitalopram Oxalate 10 Mg Tablet) 10 mg PO DAILY [facility] Last Admin: 11/06/22 09:06 Dose: 10 mg Documented By: MARTHA Guaifenesin/Dextromethorphan (Guaifenesin Dm 100/10/5 Ml 5 Ml Syrup) 5 ml PO Q4H PRN PRN Reason: cough Last Admin: 10/27/22 19:56 Dose: 5 ml Documented By: LEXY Ceftriaxone Sodium 1 gm/ (Sodium Chloride) 50 mls @ 100 mls/hr IV Q24H [facility] Last Infusion: 11/05/22 20:22 Dose: 0 mls/hr Documented By: CASTILM Methadone HCl (Methadone Hcl 20 Mg/2 Ml Oral.Conc) 125 mg PO DAILY [facility] Last Admin: 11/06/22 09:06 Dose: 125 mg Documented By: MARTHA Metronidazole (Metronidazole 500 Mg Tablet) 500 mg PO Q8H [facility] Last Admin: 11/06/22 09:06 Dose: 500 mg Documented By: MARTHA Nicotine Polacrilex (Nicotine Polacrilex 2 Mg Gum) 2 mg BUCCAL Q2H PRN PRN Reason: Nicotine Cravings Ondansetron HCl (Ondansetron Hcl 4 Mg/2 Ml Vial) 4 mg IVPUSH Q8H PRN PRN Reason: Nausea and Vomiting Oxycodone HCl (Oxycodone Hcl Immed Release 5 Mg Tablet) 5 mg PO Q6H PRN PRN Reason: Pain, Moderate (Pain Scale 4-6 Last Admin: 11/06/22 09:05 Dose: 5 mg Documented By: MARTHA Pharmacy Consult (Consult Rx Perform Med Rec) 1 each MISCELLANE ONCE PRN PRN Reason: Consult order Polyethylene Glycol (Polyethylene Glycol 3350 17 Gm Powd.Pack) 17 gm PO DAILY PRN PRN Reason: Constipation Last Admin: 10/23/22 10:54 Dose: 17 gm Documented By: CLAUDETTE Sodium Chloride (0.9 % Sodium Chloride Flush 3 Ml Syringe) 3 ml IVFLUSH QSHIFT [facility] Last Admin: 11/06/22 09:06 Dose: 3 ml Documented By: MARTHA Manrique 11/04/22 07:51 11/04/22 07:51 Assessment and Plan (1) Pulmonary abscess: Status: Acute Plan 32-year-old male with history of mild intermittent asthma, anxiety, agoraphobia, history of IV drug abuse last use 1.5 months ago, and opioid use disorder on methadone admitted for management of lung abscess in IVDA. RLL abscess s/p pigtail catheter placed 10/17 by IR right chest tube to BENJIE drain pulled 10/[address] surgery Initially treated with IV cefepime, vanco and flagyl - culture from aspirate growing streptococcus intermedius & prevotella oralis, changed to ceftriaxone 10/21, po flagyl added 10/[address] 10/30/22 showing redemonstration of cavitary mass/abscess pulmonary consult rec continued monitoring of cavitary mass, should resolve over time. day #20 of IV abx repeat chest CT tuesday 11/07 and further need for abx to be determined at that time, discuss results of CT with ID left arm rash likely contact dermatitis non painful, improving Hepatitis C Ab positive negative viral load Opioid use Disorder with hx IVDA continue methadone Mild intermittent asthma-without acute exacerbation albuterol p.r.n. Normocytic anemia no previous baseline for comparison no evidence of acute blood loss iron low at 24; b12, folate wnl H/H improving imaging showing splenomegaly consider outpatient hematology eval splenomegaly likely result of current infection US negative for splenic vein/portal vein thrombosis outpatient follow up Mood pt reporting anxiety and depression seen aqain by psych rec to increase lexapro and change to klonopin as that has worked for him in the past DVT ppx - Lovenox Full code attending - dr. willy GUEVARA 3 weeks IV abx total , CM currently looking for safe disposition for continued abx Patient requires ongoing hospitalization to treat right lung abscess with IV antibiotics Time Spent With Patient Time: Total time managing care of this patient today ____ minutes. Quality Stroke Does the patient have a stroke diagnosis?: No VTE Prior VTE?: No VTE Risk Level:: Medical - moderate - high VTE Device Contraindication: Treatment Not Indicated VTE Drug Contraindication: N/A - Med Ordered
[2022-11-06 14:48] VITALS: BP 108/70; PULSE 81; RESP 20; TEMP 37.1; O2SAT 97
[2022-11-06] MEDS: Enoxaparin Sodium 40 MG/0.4 ML SYRINGE SUBCUT (15:53)
[2022-11-06 20:00] VITALS: BP 110/69; PULSE 74; RESP 18; TEMP 37.4; O2SAT 97
[2022-11-06] MEDS: cefTRIAXone sodium 1 GM in 0.9 % Sodium Chloride 50 ML IV (20:18)
[2022-11-07 03:19] VITALS: BP 112/64; PULSE 56; RESP 18; TEMP 36.2; O2SAT 98
[2022-11-07 06:58] VITALS: BP 102/61; PULSE 84; RESP 16; TEMP 36.1; O2SAT 96
[2022-11-07] MEDS: Escitalopram Oxalate 10 MG TABLET PO (07:37)
[2022-11-07] MEDS: clonazePAM 1 MG TABLET PO ×2 (07:37→19:34)
[2022-11-07] MEDS: Docusate Sodium 100 MG CAPSULE PO (07:37)
[2022-11-07] MEDS: methADONE HCl 20 MG/2 ML ORAL.CONC 125 MG PO (07:38)
[2022-11-07] MEDS: metroNIDAZOLE 500 MG TABLET PO ×3 (07:38→23:25)
[2022-11-07] MEDS: cloNIDine HCL 0.1 MG TABLET PO ×2 (07:38→19:34)
[2022-11-07] MEDS: 0.9 % Sodium Chloride Flush 3 ML SYRINGE IVFLUSH ×3 (07:40→21:06)
--- NOTE | 2022-11-07 12:06 | P.PNIM_ITS ---
Subjective Subjective Date of Service: 11/07/22 Interval History: seen and examined this morning follow up for right lung abscess reporting right side pain with inspiration, not much cough Review of Systems Review of Systems: Yes all other systems are reviewed and are negative Constitutional Constitutional: Denies chills and Denies fever(s) Cardiovascular Cardiovascular: Denies chest pain and Denies palpitations Respiratory Respiratory: Reports cough and Reports pain on inspiration Gastrointestinal Gastrointestinal: Denies abdominal pain, Denies nausea and Denies vomiting Endocrine Endocrine: Denies palpitations Physical Exam Vital Signs: Vital Signs: Last Vital Signs Temp 97 F 11/07/22 06:58 Pulse 84 11/07/22 06:58 Resp 16 11/07/22 06:58 BP 102/61 11/07/22 06:58 Pulse Ox 96 11/07/22 06:58 O2 Del Method 11/07/22 06:58 BMI result Body Mass Index 20.9 Appearing in no acute distress lung sounds are clear to auscultation heart regular rate rhythm, clear S1, S2 positive bowel sounds, abdomen is soft, nontender neuro patient is alert x3, no focal deficits Objective Data Active Medications Acetaminophen (Acetaminophen 325 Mg Tablet) 650 mg PO Q6H PRN PRN Reason: Pain, Mild (Pain Scale 1-3) Last Admin: 10/30/22 08:07 Dose: 650 mg Documented By: TORRES Bisacodyl (Bisacodyl 5 Mg Tablet.Dr) 5 mg PO DAILY PRN PRN Reason: Constipation Clonazepam (Clonazepam 1 Mg Tablet) 1 mg PO BID [facility] Last Admin: 11/07/22 07:37 Dose: 1 mg Documented By: APOLLO Clonidine HCl (Clonidine Hcl 0.1 Mg Tablet) 0.1 mg PO BID [facility]; Protocol Last Admin: 11/07/22 07:38 Dose: 0.1 mg Documented By: APOLLO Docusate Sodium (Docusate Sodium 100 Mg Capsule) 100 mg PO DAILY [facility] Last Admin: 11/07/22 07:37 Dose: 100 mg Documented By: APOLLO Enoxaparin Sodium (Enoxaparin Sodium 40 Mg/0.4 Ml Syringe) 40 mg SUBCUT Q24H [facility] Last Admin: 11/06/22 15:53 Dose: 40 mg Documented By: MARTHA Escitalopram Oxalate (Escitalopram Oxalate 10 Mg Tablet) 10 mg PO DAILY [facility] Last Admin: 11/07/22 07:37 Dose: 10 mg Documented By: APOLLO Guaifenesin/Dextromethorphan (Guaifenesin Dm 100/10/5 Ml 5 Ml Syrup) 5 ml PO Q4H PRN PRN Reason: cough Last Admin: 10/27/22 19:56 Dose: 5 ml Documented By: LEXY Ceftriaxone Sodium 1 gm/ (Sodium Chloride) 50 mls @ 100 mls/hr IV Q24H [facility] Last Infusion: 11/06/22 20:58 Dose: 0 mls/hr Documented By: KENDELL Methadone HCl (Methadone Hcl 20 Mg/2 Ml Oral.Conc) 125 mg PO DAILY [facility] Last Admin: 11/07/22 07:38 Dose: 125 mg Documented By: APOLLO Metronidazole (Metronidazole 500 Mg Tablet) 500 mg PO Q8H [facility] Last Admin: 11/07/22 07:38 Dose: 500 mg Documented By: APOLLO Nicotine Polacrilex (Nicotine Polacrilex 2 Mg Gum) 2 mg BUCCAL Q2H PRN PRN Reason: Nicotine Cravings Ondansetron HCl (Ondansetron Hcl 4 Mg/2 Ml Vial) 4 mg IVPUSH Q8H PRN PRN Reason: Nausea and Vomiting Oxycodone HCl (Oxycodone Hcl Immed Release 5 Mg Tablet) 5 mg PO Q6H PRN PRN Reason: Pain, Moderate (Pain Scale 4-6 Last Admin: 11/06/22 19:29 Dose: 5 mg Documented By: KENDELL Pharmacy Consult (Consult Rx Perform Med Rec) 1 each MISCELLANE ONCE PRN PRN Reason: Consult order Polyethylene Glycol (Polyethylene Glycol 3350 17 Gm Powd.Pack) 17 gm PO DAILY PRN PRN Reason: Constipation Last Admin: 10/23/22 10:54 Dose: 17 gm Documented By: CLAUDETTE Sodium Chloride (0.9 % Sodium Chloride Flush 3 Ml Syringe) 3 ml IVFLUSH QSHIFT [facility] Last Admin: 11/07/22 07:40 Dose: 3 ml Documented By: APOLLO Labs 11/04/22 07:51 11/04/22 07:51 Assessment and Plan (1) Pulmonary abscess: Status: Acute Plan 32-year-old male with history of mild intermittent asthma, anxiety, agoraphobia, history of IV drug abuse last use 1.5 months ago, and opioid use disorder on methadone admitted for management of lung abscess in IVDA. RLL abscess s/p pigtail catheter placed 10/17 by IR right chest tube to BENJIE drain pulled 10/[address] surgery Initially treated with IV cefepime, vanco and flagyl - culture from aspirate growing streptococcus intermedius & prevotella oralis, changed to ceftriaxone 10/21, po flagyl added 10/[address] 10/30/22 showing redemonstration of cavitary mass/abscess pulmonary consult rec continued monitoring of cavitary mass, should resolve over time. day #21 of 21 IV abx repeat chest CT left arm rash likely contact dermatitis non painful, improving Hepatitis C Ab positive negative viral load Opioid use Disorder with hx IVDA continue methadone Mild intermittent asthma-without acute exacerbation albuterol p.r.n. Normocytic anemia no previous baseline for comparison no evidence of acute blood loss iron low at 24; b12, folate wnl H/H improving imaging showing splenomegaly consider outpatient hematology eval splenomegaly likely result of current infection US negative for splenic vein/portal vein thrombosis outpatient follow up Mood pt reporting anxiety and depression seen aqain by psych rec to increase lexapro and change to klonopin as that has worked for him in the past DVT ppx - Lovenox Full code attending - dr. Theron GUEVARA 3 weeks IV abx total , plan for dc tomorrow Patient requires ongoing hospitalization to treat right lung abscess with IV antibiotics Time Spent With Patient Time: Total time managing care of this patient today ____ minutes. Quality Stroke Does the patient have a stroke diagnosis?: No VTE Prior VTE?: No VTE Risk Level:: Medical - moderate - high VTE Device Contraindication: Treatment Not Indicated VTE Drug Contraindication: N/A - Med Ordered
[2022-11-07 15:33] VITALS: BP 107/69; PULSE 69; RESP 14; TEMP 36.5; O2SAT 94
[2022-11-07] MEDS: Enoxaparin Sodium 40 MG/0.4 ML SYRINGE SUBCUT (16:00)
[2022-11-07 20:00] VITALS: BP 102/60; PULSE 86; RESP 18; TEMP 36.9; O2SAT 96
--- NOTE | 2022-11-07 20:35 | P.PNPL_ITS ---
Subjective Subjective Date of Service: 11/07/22 Principal diagnosis: Abscess Rt. lower lobe Interval history: The patient was seen and examined. Still complaining of pleuritic chest pain. I personally reviewed his recent CT chest demonstrating improving of the air fluid level. Objective Data Labs 11/04/22 07:51 11/04/22 07:51 Microbiology Microbiology Results: Microbiology 10/18/22 16:00 Abscess Pulmonary Fungal Identification - Preliminary Filamentous fungus 10/18/22 16:00 Abscess Pulmonary Direct Acid Fast Bacilli Smear - Final 10/18/22 16:00 Abscess Pulmonary Gram Stain - Final 10/18/22 16:00 Abscess Pulmonary Routine Culture - Final Streptococcus intermedius 10/18/22 16:00 Abscess Pulmonary Anaerobic Culture - Final Prevotella oralis group 10/17/22 10:51 Blood - Venous Blood Culture - Final No growth after 5 days. 10/17/22 10:41 Blood - Venous Blood Culture - Final No growth after 5 days. Review of Systems Constitutional: Denies body ache(s), Denies chills, Denies fatigue, Denies fever(s), Denies night sweats, Denies weakness and Denies weight loss Denies dysphagia, Denies hoarseness, Denies odynophagia and Denies throat sw elling Cardiovascular: Denies Abdominal Distension, Denies chest pain, Denies lightheadedness, Denies palpitations, Denies dyspnea and Denies dyspnea on exertion Respiratory: Reports cough, Denies hemoptysis, Reports pain on inspiration, Reports pain with cough, Denies dyspnea, Denies dyspnea on exertion and Denies wheezing Gastrointestinal: Denies abdominal pain, Reports constipation (chronic due to his methadone, last BM a long time ago ), Denies dysphagia, Denies diarrhea, Denies nausea, Denies odynophagia and Denies vomiting Musculoskeletal: Denies back pain, Denies numbness and Denies tingling Skin/Breast: Denies rash Denies numbness, Denies tingling and Denies weakness Psychiatric: Reports anxiety Endocrine: Denies fatigue and Denies palpitations Allergic/Immunologic: Denies throat swelling and Denies wheezing Physical Exam Vital Signs: Vital Signs: Last Vital Signs Temp 97.7 F 11/07/22 15:33 Pulse 69 11/07/22 15:33 Resp 14 11/07/22 15:33 BP 107/69 11/07/22 15:33 Pulse Ox 94 11/07/22 15:33 O2 Del Method 11/07/22 15:33 BMI result Body Mass Index 20.9 Appearing in no acute distress lung sounds are clear to auscultation heart regular rate rhythm, clear S1, S2 positive bowel sounds, abdomen is soft, nontender neuro patient is alert x3, no focal deficits Procedures Date of Service Date of Service: 11/07/22 Assessment and Plan Assessment and plan (1) Thoracic abscess: Status: Acute (2) Abscess of lower lobe of right lung without pneumonia: Status: Acute Plan continue antibiotics as per ID NSAIDS for pleiritic pain Pt is able to be discharged on PO regimen Needs to return to the ED if worsens Needs to avoid IVDU F/U with pulmonary as an outpt Time Spent With Patient Time: Total time managing care of this patient today ____ minutes. Progress Note: Quality Stroke Does the patient have a stroke diagnosis?: No
[2022-11-07] MEDS: cefTRIAXone sodium 1 GM in 0.9 % Sodium Chloride 50 ML IV (21:06)
[2022-11-07] MEDS: oxyCODONE HCl Immed Release 5 MG TABLET PO (21:10)
[2022-11-08 03:33] VITALS: BP 114/65; PULSE 67; RESP 18; TEMP 36.3; O2SAT 97
--- NOTE | 2022-11-08 07:19 | P.DS_ITS ---
DS: Providers Provider Date of Service: 11/08/22 Date of admission: 10/17/22 14:30 Primary care physician: None Physician Consults: 10/17/22 14:52 Consult to Infectious Diseases Routine Consulting Provider: Alize Sierra Reason for consultation: lung abscess, IVDA Consult to Pulmonology Routine Consulting Provider: Matheus Orellana Reason for consultation: lung abscess, IVDA 10/19/22 08:08 Consult to Thoracic Surgery Stat Consulting Provider: Karson Mccann Reason for consultation: RLL abcess Has provider been notified: No 10/22/22 09:19 Consult to Psychiatry Routine Consulting Provider: Psych Covering Reason for consultation: depression, anxiety 10/31/22 07:30 Consult to Pulmonology Routine Consulting Provider: Yolanda Brandt Reason for consultation: empyema Has provider been notified: No 10/31/22 08:30 Consult to Psychiatry Routine Consulting Provider: Psych Covering Reason for consultation: depression, anxiety, medication adjustement Has provider been notified: No Attending physician on discharge: Beto Crump Discharging clinician: Ilana Orellana DS: Diagnosis Discharge Diagnosis (1) Thoracic abscess: Status: Acute (2) Abscess of lower lobe of right lung without pneumonia: Status: Acute DS: Summary Hospital Course Hospital Course: History physical as per admitting provider 32-year-old male with history of mild intermittent asthma, anxiety, agoraphobia, history of IV drug abuse last use 1.5 months ago, and opioid use disorder on methadone presented to the ED earlier today for evaluation of right flank pain, shortness of breath, dry cough, pleuritic and positional chest pain, and fevers up to 100.6 ongoing for 2 weeks.? He is also reporting polyuria and dysuria as well as swelling of the fingers bilaterally.? On arrival, temperature 99.4 degrees, tachycardic to 106, no tachypnea or hypoxia.? Leukocytosis 16.4, normocytic anemia with H/H 9.3/2 8.2%.? Renal function normal.? Sodium 134, potassium 4.0, chloride 98, CO2 25.? Glucose 203.? Initial lactic acid 2.1.? CRP 19.93, ESR 98.? Urinalysis unremarkable.? HIV antibody nonreactive.? Hepatitis-C antibody reactive.? Negative for influenza, RSV, COVID-19.? CXR with large right lower lobe posterior segment and fluid level suggestive of liquified consolidation or abscess.? Follow-up CT chest showing large right lower lobe lung abscess with 2 adjacent loculated pleural collections as well as incidental findings of splenomegaly and possible hepatomegaly.? Patient treated empirically with v ancomycin and Zosyn and given IV NS bolus of 33cc/kg. Also given lorazepam 2mg for anxiety with improvement in HR to 73. Pt denies any pain currently and follows with nearest or methadone clinic.? Denies etoh use. Smokes about 4 cigarettes daily. MJ user. Last IV heroin use was 1.5 months ago after relapsing following 7-8 months of sobriety. No other illicit drug. Patient be admitted for further other management of lung abscess . RLL abscess s/p pigtail catheter placed 10/17 by IR right chest tube to BENJIE drain pulled 10/[address] surgery Initially treated with IV cefepime, vanco and flagyl - culture from aspirate growing streptococcus intermedius & prevotella oralis, changed to ceftriaxone 10/21, po flagyl added / pulmonary consult rec continued monitoring of cavitary mass, should resolve over time. day #21 of 21 IV abx with Rocephin and Flagyl, home with 2 weeks of Augmentin left arm rash. Resolved likely contact dermatitis non painful, improving? Hepatitis C Ab positive negative viral load Opioid use Disorder with hx IVDA continue methadone Encouraged to stop using drugs and seek outpatient therapy Mild intermittent asthma-without acute exacerbation albuterol p.r.n. Normocytic anemia no previous baseline for comparison no evidence of acute blood loss iron low at 24; b12, folate wnl H/H improving imaging showing splenomegaly consider outpatient hematology eval splenomegaly likely result of current infection US negative for splenic vein/portal vein thrombosis outpatient follow up Mood pt reporting anxiety and depression seen aqain by psych Continue Lexapro and Klonopin, follow-up with primary care provider for medication management Time Spent with Patient Time attestation: Total time managing care of this patient today ____ minutes. Discharge coordination time: Greater than 30 minutes Quality: Safe Use of Opioids Does Pt have an Active Cancer Diagnosis on the Problem List?: No Quality: Stroke Does the patient have a stroke diagnosis?: No Physical Exam Vital Signs: Vital Signs: Last Vital Signs Temp 97.3 F 11/08/22 03:33 Pulse 67 11/08/22 03:33 Resp 18 11/08/22 03:33 BP 114/65 11/08/22 03:33 Pulse Ox 97 11/08/22 03:33 O2 Del Method 11/08/22 03:33 BMI result Body Mass Index 20.9 Appearing in no acute distress head is normocephalic atraumatic eyes pupils are PERRLA sclera is anicteric mouth throat mucous membranes are intact and moist neck is supple no lymphadenopathy, no JVD noted lung sounds are clear to auscultation heart regular rate rhythm, clear S1, S2 positive bowel sounds, abdomen is soft, nontender neuro patient is alert x3, no focal deficits DS: Data Data Completed and Pending Completed studies during hospitalization [Text1]: Pending at discharge 10/17/22 16:00 Cytology [PTH] Routine Labs on day of discharge: Preliminary micro results at discharge 10/18/22 16:00 Fungal Identification - Preliminary Abscess Pulmonary Filamentous fungus Discharge Plan Discharge Anticipated Discharge Date/Time: 11/08/22 07:17 Patient Disposition: Home, Self-Care Discharge Diagnosis: Right lower lobe abscess Left arm rash Opiate use disorder Discharge Medications: New amoxicillin-pot clavulanate 875-125 mg tablet 1 tab PO BID Qty: 28 0RF clonidine HCl 0.1 mg Tablet 0.1 mg PO BID Qty: 60 0RF Protocol: Hold for SBP< HOLD for SBP < : 90 clonazepam 1 mg Tablet 1 mg PO BID Qty: 60 0RF escitalopram oxalate 10 mg Tablet 10 mg PO DAILY Qty: 30 0RF Continued methadone 10 mg/5 mL Solution 125 mg PO DAILY albuterol sulfate 90 mcg/actuation Hfa Aerosol Inhaler 1 inh INHALATION QID PRN (Reason: Wheezing) Discharge Orders: Discharge Order (Routine); Ordered 11/08/22 Ordered By: Ilana Orellana Diet: Advance to usual diet Activity on Discharge: As tolerated Stand Alone Forms: Patient Portal Discharge page Care Plan Goals: Continue antibiotics as prescribed complete resolution of symptoms Health Concerns: Right lower lobe abscess Left arm rash Opiate use disorder Plan of Treatment: Follow-up with primary care provider as needed Follow-up with outpatient resources for opioid use disorder, depression and anxiety Take all medications as prescribed Last dose of Methadone 11/08/22 at 0745 Assessment: See discharge summary Discharge Date/Time: 11/08/22 12:54
[2022-11-08] MEDS: methADONE HCl 20 MG/2 ML ORAL.CONC 125 MG PO (07:45)
[2022-11-08] MEDS: clonazePAM 1 MG TABLET PO (07:45)
[2022-11-08] MEDS: metroNIDAZOLE 500 MG TABLET PO (07:45)
[2022-11-08] MEDS: Docusate Sodium 100 MG CAPSULE PO (07:45)
[2022-11-08] MEDS: Escitalopram Oxalate 10 MG TABLET PO (07:45)
[2022-11-08] MEDS: cloNIDine HCL 0.1 MG TABLET PO (07:45)
[2022-11-08] MEDS: 0.9 % Sodium Chloride Flush 3 ML SYRINGE IVFLUSH (07:47)
[2022-11-08 08:00] VITALS: BP 129/79; PULSE 78; RESP 18; TEMP 37.1; O2SAT 97
[2022-11-08] MEDS: oxyCODONE HCl Immed Release 5 MG TABLET PO (09:44)
--- NOTE | 2022-11-08 10:50 | MHC.CM.PN ---
PT MEDICALLY CLEARED FOR D/C HOME SELF CARE, PER PT HE WILL BE STAYING W/GF'S GRANDMOTHER HOLLY WHO WILL ALSO PROVIDE TRANSPORTATION BETWEEN 1-2PM, PT PROVIDED PT'S RN W/LAST DOSE LETTER AND PT REQUESTED COPY OF D/C SUMMARY WHICH WILL PROVIDED ONCE SIGNED.
--- NOTE | 2022-11-11 14:20 | PM.EVENT ---
Event Note Date of Service: 11/11/22 Event Note: pt called requesting albuterol, on dc instruction albuterol was continue, pt is saying he wasn't sent with and he run out, prescription renewed but i asked that if he's having difficult breahing should see medical attention by calling pcp, go to urgent care, an ED or even calling 911 Time Spent With Patient Time: Total time managing care of this patient today ____ minutes.
== END 2022-11-08 12:54 | disposition home or self-care (01) | DRG 137 ==
LOC: HO.ED 10:22 → HO.EDOVER 14:37 → HO.S3 15:05
PROVIDERS: Hospitalist; Physician Assistant Medical; Physician Assistant Surgical; Radiology Diagnostic Radiology; Admitting Provider Physician Assistant; Emergency Provider Emergency Medicine; Visit Provider Nurse Practitioner Acute Care
PROC: 0W9930Z Drainage of Right Pleural Cavity with Drainage Device, Percutaneous Approach (ICD-10-PCS; principal; 2022-10-18 14:30)
DX: J85.2 Abscess of lung without pneumonia (principal); B19.20 Unspecified viral hepatitis C without hepatic coma; D64.9 Anemia, unspecified; F11.20 Opioid dependence, uncomplicated; F17.210 Nicotine dependence, cigarettes, uncomplicated; F43.22 Adjustment disorder with anxiety; F41.1 Generalized anxiety disorder; R16.1 Splenomegaly, not elsewhere classified; L25.9 Unspecified contact dermatitis, unspecified cause; B95.4 Other streptococcus as the cause of diseases classified elsewhere; F32.A Depression, unspecified; J45.20 Mild intermittent asthma, uncomplicated; F40.00 Agoraphobia, unspecified; Z20.822 Contact with and (suspected) exposure to COVID-19; Z71.6 Tobacco abuse counseling; Z88.5 Allergy status to narcotic agent; Z79.899 Other long term (current) drug therapy
CPT/HCPCS: 0241U; 32555; 36415; 71045; 71046; 71250; 71260; 76700; 80048; 80053; 80202; 80307; 81001; 82565; 82607; 82746; 83540; 83605; 83735; 85025; 85027; 85610; 85652; 86140; 86704; 86706; 86709; 86803; 87040; 87070; 87073; 87076; 87077; 87102; 87107; 87116; 87185; 87186; 87205; 87206; 87340; 87389; 87522; 88112; 88305; 93975; 96365; 96367; 96375; 99152; 99153; 99285; C1729; J0692; J0696; J1650; J2060; J2543; J3370; J3371; Q4186; Q9967

== ENCOUNTER 2023-04-18 11:37 | Emergency (ER) | payer OTHER, SELFPAY ==
--- NOTE | ~2023-04-18 | XR_ITS ---
EXAMINATION: XR CHEST CLINICAL INFORMATION: Chest pain. COMPARISON: 10/25/2022 chest radiograph. TECHNIQUE: 2 views of the chest were obtained. FINDINGS: No significant abnormality is noted involving the heart, lungs, mediastinum, bony thorax or soft tissues. XR/XR chest 2V IMPRESSION: No acute cardiopulmonary process. Interval resolution of right lower lung opacities.
[2023-04-18 11:41] VITALS: BP 143/106; PULSE 93; RESP 18; TEMP 36.2; O2SAT 94; BMI 19.8
--- NOTE | 2023-04-18 11:43 | ED_ITS ---
HPI - General Adult General Chief complaint: Asthma Stated complaint: Asthma Chest Pressure Time Seen by Provider: 04/18/23 13:18 Source: patient and RN notes reviewed Mode of arrival: ambulatory Limitations: no limitations History of Present Illness HPI narrative: This is a 33-year-old male, with a past medical history of asthma and lung abscess, presenting to the emergency department with complaints of shortness of breath, productive cough x1 week. Patient admits to having some chills, demise any documented fevers. He states that he ran out of his inhalers and has had worsening shortness of breath since. Denies headaches, blurred vision, ear pain, sore throat, chest pain palpitations, abdominal pain, nausea, vomiting, or diarrhea. No sick contacts. No other complaints or concerns at this time. MD complaint: Shortness of breath, cough Onset (ago): week(s) Radiation: non-radiation Relieving factors: none Exacerbating factors: none Associated symptoms: cough and shortness of breath Treatments prior to arrival: none Related Data Home Medications Medication Instructions Recorded Confirmed methadone 10 mg/5 mL oral solution 125 mg PO DAILY 10/17/22 10/17/22 Previous Rx's Medication Instructions Recorded amoxicillin 875 mg-potassium 1 tab PO BID #28 tabs 11/08/22 clavulanate 125 mg tablet clonazepam 1 mg tablet 1 mg PO BID #60 tabs 11/08/22 clonidine HCl 0.1 mg tablet 0.1 mg PO BID #60 tabs 11/08/22 escitalopram oxalate 10 mg tablet 10 mg PO DAILY #30 tabs 11/08/22 albuterol sulfate 90 mcg/actuation 1 inh inhalation QID PRN Wheezing 11/11/22 aerosol inhaler #1 g albuterol sulfate 90 mcg/actuation 2 inh inhalation Q6-8H PRN 11/11/22 aerosol inhaler shortness of breath or wheezing #18 grams albuterol sulfate 2.5 mg/0.5 mL 5 mg inhalation Q6H PRN shortness 04/18/23 solution for nebulization of breath or wheezing #30 ea albuterol sulfate 90 mcg/actuation 2 puff inhalation Q6H PRN 04/18/23 aerosol inhaler shortness of breath or wheezing #6.7 grams prednisone 20 mg tablet 40 mg PO DAILY 5 days #10 tabs 04/18/23 Allergies Allergy/AdvReac Type Severity Reaction Status Date / Time codeine Allergy Hives Verified 04/18/23 11:41 Review of Systems Review of Systems: Yes all other systems are reviewed and are negative Constitutional: Constitutional: Reports as per [facility] Past Medical History Medical History (Updated 04/18/23 @ 15:44 by JOSE Benjamin) Adjustment disorder with anxiety Agoraphobia Anxiety Asthma Cocaine use disorder, moderate, dependence Depression Generalized anxiety disorder Hepatitis C antibody test positive History of intravenous drug abuse MDD (major depressive disorder), recurrent episode, moderate Opioid use disorder Opioid use disorder, severe, on maintenance therapy, dependence Pulmonary abscess Family History Family History Father Lung cancer Social History Social History Household Members: Spouse Housing: Apartment Do you presently have visiting nurse or other home services: No Alcohol intake: never Patient Tobacco Use Status: Current everyday Tobacco user Tobacco use type: Cigarette Cigarette Packs Per Day: 0.25 Cigarettes Per Day: 2 Years Smoked: 11 Smoked in Last 30 Days: Yes e-Cigarette/Vaping Use: Former Use Second Hand Smoke Exposure: No Substance Use Type: Heroin Advance Directives: Yes Advance Directives on File: Yes Advance Directives Date on File: 10/17/22 service: No Current occupational status: unemployed Physical Exam ED Vital Signs: Vital Signs - 24 hr 04/18/23 11:41 04/18/23 13:11 04/18/23 14:35 Temperature 97.2 F 98.8 F Pulse Rate 93 75 69 Respiratory Rate 18 18 16 Blood Pressure 143/106 H 149/88 H Pulse Oximetry 94 98 Oxygen Delivery Method Room Air Room Air BMI result Body Mass Index 19.8 Const General: cooperative, comfortable and no acute distress Orientation/consciousness: patient oriented x3 Limitations: no limitations HENMT Head: Yes normal to inspection, Yes normocephalic and Yes atraumatic Ears: hearing grossly normal bilaterally General nose exam: Normal external nose present Face and sinus: Yes normal facial exam Mouth: Normal oral and palatal mucosa present, oropharynx normal and moist mucous membranes Throat: Yes posterior oropharynx normal Eyes General: appearance normal, both eyes and all related structures Eyelids: Yes eyelids normal Conjunctivae: conjunctivae normal Sclerae: sclerae normal Pupils: Equal, round and reactive pupils present EOM: EOMs intact bilaterally Neck Neck: Yes normal visual inspection, Yes full ROM and Yes no lymphadenopathy Lymphatic: no lymphadenopathy noted Chest Chest palpation & inspection: normal inspection of the chest Resp Other: Lungs with coarse crackles heard at BL lung bases with expiratory wheezes heard throughout. Effort & Inspection: normal respiratory effort and able to speak in complete sentences Cardio Rate: regular rate Rhythm: regular rhythm Heart sounds: S1 normal heart sound present and S2 normal heart sound present GI Inspection: Yes normal to inspection Skin General skin exam: no rashes or lesions noted Trauma: no lacerations or abrasions Wounds: no wounds Neuro General: patient oriented x3 and moves all extremities Cranial nerves: Yes Equal, round and reactive pupils present Extrem General: Yes normal to inspection Right upper extremity: normal to inspection Left upper extremity: normal to inspection Right lower extremity: normal to inspection Left lower extremity: normal to inspection Course Course Course Narrative: RME- 33-year-old male presents for evaluation of shortness of breath, chest congestion. Patient reports worsening shortness of breath with congestion for the last week. He reports he ran out of his albuterol inhaler. Patient reports he was admitted in September to October this year for an empyema of the right lower lobe and did not follow-up. He is wheezy on exam, vitals are stable. A chest x-ray was ordered Reevaluation(s) Reevaluation #1: Chest x-ray reviewed with no consolidation noted. Duo nebulizer and prednisone 60 mg p.o.. Patient's symptoms significantly improved after receiving updrafts. Lungs with better air movement throughout lung herman, coarse lung sounds still heard at bilateral bases, expiratory wheezes resolved. Patient discharged on a prescription for prednisone and albuterol. Patient advised to follow-up with [facility] knife cutter [facility] and to stop smoking. Patient understands and agrees with plan. Patient given referral to pulmonology, call tomorrow to make appointment. Patient understands and agrees with plan. Given return precautions if any new or worsening symptoms occur. Patient understands and agrees with plan. Patient stable for discharge. Time: 16:30 Medications Administered Discontinued Medications Generic Name Dose Route Start Last Admin Trade Name Freq PRN Reason Stop Dose Admin Albuterol Sulfate 7.5 mg/ 0 mg 04/18/23 14:23 04/18/23 14:30 Albuterol/Ipratropium 3 ml INHALE 04/18/23 14:24 10 each ONCE ONE Administration Prednisone 60 mg 04/18/23 14:23 04/18/23 14:29 Prednisone 20 Mg Tablet PO 04/18/23 14:24 60 mg ONCE ONE Administration Medical Decision Making Medical Decision Making [facility] Narrative: 33-year-old male presenting to the emergency department for evaluation of cough and shortness of breath x 1 week. On arrival, patient mildly hypertensive at 143/106, oxygen saturation 94% on room air. Patient is nontoxic appearing, with normal respiratory effort. Lungs with coarse lung sounds heard at bilateral bases and expiratory wheezes throughout. Differential diagnoses include asthma exacerbation, pneumonia, lung abscess, viral syndrome. Patient has no chest pain. Plan: Chest x-ray, viral swabs Differential Diagnosis Differential Diagnoses: The differential diagnosis associated with the presentation includes Pneumonia, upper respiratory infection, bronchitis, asthma exacerbation, reactive airway disease Admission/Observation Consideration of admission/observation: Escalation of care including admission/observation considered Patient would have been admitted to the hospital had her work up had any findings where hospital admission was appropriate and her clinical presentation warranted hospital admission. Lab Data [facility] Lab Attestation statement: I reviewed the patient's lab results. Labs: Lab Results 04/18/23 Range/Units 14:30 COVID-19 (CHANDRA) Negative (Negative) COVID-19 Clin Com See Note Radiology Impression Discussion of test interpretation with radiology: I have reviewed the radiologist's reading. External Record Review External record reviewed: Inpatient record, Office record, Outpatient record, Prior outpatient labs, Prior outpatient radiology, Primary care record and Outside ED record Discharge Plan Discharge Clinical Impression: Asthma with acute exacerbation Patient Disposition: Home, Self-Care Instructions: Asthma (ED) Additional Instructions: Your chest x-ray did not show a pneumonia. He tested negative for COVID today. Please continue taking prednisone for the next 5 days. Please take albuterol as directed as needed for your symptoms. Please call [facility] for further management of your asthma. If any new or worsening symptoms occur including but not limited to worsening shortness of breath, chest pain, worsening cough, please return for re- evaluation. Prescriptions: New prednisone 20 mg tablet 40 mg PO DAILY 5 Days Qty: 10 0RF albuterol sulfate 2.5 mg/0.5 mL solution for nebulization 5 mg inhalation Q6H PRN (Reason: shortness of breath or wheezing) Qty: 30 0RF albuterol sulfate 90 mcg/actuation HFA aerosol inhaler 2 puff inhalation Q6H PRN (Reason: shortness of breath or wheezing) Qty: 6.7 0RF No Action methadone 10 mg/5 mL Solution 125 mg PO DAILY amoxicillin-pot clavulanate 875-125 mg tablet 1 tab PO BID Qty: 28 0RF clonidine HCl 0.1 mg Tablet 0.1 mg PO BID Qty: 60 0RF Protocol: Hold for SBP< HOLD for SBP < : 90 clonazepam 1 mg Tablet 1 mg PO BID Qty: 60 0RF escitalopram oxalate 10 mg Tablet 10 mg PO DAILY Qty: 30 0RF albuterol sulfate 90 mcg/actuation Hfa Aerosol Inhaler 1 inh INHALATION QID PRN (Reason: Wheezing) Qty: 1 0RF albuterol sulfate 90 mcg/actuation HFA aerosol inhaler 2 inh inhalation Q6-8H PRN (Reason: shortness of breath or wheezing) Qty: 18 1RF Referrals: [facility] [place] [facility] Group[facility] - Interventions: ED Discharge Assessment Last Done: 04/18/23 15:55 Discharge Date/Time: 04/18/23 15:55
[2023-04-18 13:11] VITALS: BP 149/88; PULSE 75; RESP 18; TEMP 37.1; O2SAT 98
--- NOTE | 2023-04-18 13:18 | PC.NURSE ---
pt a&ox3, respirations even and unlabored. pt reports having asthma with wheezing and productive cough. pt has inspiratory and expiratory wheezing. pt unable to use inhaler d/t running out because he does not have a PCP. o2 sats 98%
[2023-04-18] MEDS: predniSONE 20 MG TABLET 60 MG PO (14:29)
[2023-04-18] MEDS: Albuterol Sulfate 7.5 MG, Albuterol/Iprat 2.5/0.5MG 3 ML 3 ML INHALE (14:30)
[2023-04-18 14:35] VITALS: PULSE 69; RESP 16; O2SAT 98
[2023-04-18 14:50] LABS: COVID-19 Test Negative (Negative); IDNOW Serial# 08D9AD1C
== END 2023-04-18 15:55 | disposition home or self-care (01) ==
PROVIDERS: Physician Assistant Medical; Emergency Provider Emergency Medicine
DX: J45.901 Unspecified asthma with (acute) exacerbation (principal); R06.02 Shortness of breath; Z20.822 Contact with and (suspected) exposure to COVID-19; F17.210 Nicotine dependence, cigarettes, uncomplicated; F11.20 Opioid dependence, uncomplicated; Z79.899 Other long term (current) drug therapy
CPT/HCPCS: 71046; 87635; 94640; 99284